=== PATIENT | female | born 1955 | race Caucasian/White ===

== ENCOUNTER 2016-03-01 11:12 | Inpatient (IN) | payer OTHER ==
[~2016-03-01] VITALS: Ht 162.6 cm; Wt 97.5 kg
--- NOTE | 2016-03-01 11:13 | NUR ---
INFORMED WAITING PERFORMED.
--- NOTE | 2016-03-01 11:24 | NUR ---
PT C/O MS EXACERBATION. STATES SHE WAS UNABLE TO VOID LAST WEEK AND THE RN CAME OUT AND PLACED A CÁRDENAS AND GOT 900 CC OUT. PT STATES URINE NOT DRAINING NOW. STATES LEFT LEG WENT COMPLETELY NUMB LAST NIGHT X 3. PT STATES SHE HAS LUMPS THAT HAVE POPPED OUT ON HER ANKLES SINCE LAST WEEK
--- NOTE | 2016-03-01 11:37 | ED GENERAL ADULT ---
History of Present Illness General Chief Complaint: General Adult Stated Complaint: ?MS EXACERBATION, PAIN FROM WAIST DOWN, HX DVT Source: patient Exam Limitations: no limitations Vital Signs & Intake/Output Vital Signs & Intake/Output Vital Signs Date Time Temp Pulse Resp B/P Pulse O2 O2 Flow FiO2 Ox Delivery Rate 03/02 0850 97.6 74 20 128/86 94 Nasal 1.0L Cannula 03/02 0043 98.1 90 20 150/90 94 Nasal 2.0L Cannula 03/02 0000 94 Nasal 2.0L Cannula 03/01 2132 97.6 78 18 116/64 96 Nasal 2.0L Cannula 03/01 1857 97.1 70 20 114/59 03/01 1733 Nasal 2.0L Cannula 03/01 1733 96 Nasal 2.0L Cannula 03/01 1733 96.6 68 17 114/59 96 Nasal 2.0L Cannula 03/01 1733 95 Nasal 2.0L Cannula 03/01 1538 96.5 72 17 127/62 96 Nasal 2.0L Cannula 03/01 1250 95 Nasal 2.0L Cannula 03/01 1121 98.1 88 20 120/79 95 Room Air ED Intake and Output 03/02 0000 03/01 1200 Intake Total 270 Output Total 950 Balance -680 Intake, IV 30 Intake, Oral 240 Output, Urine 950 Patient 215 lb 215 lb Weight Allergies Coded Allergies: metoclopramide (From REGLAN) (Severe, 03/01/16) Sulfa (Sulfonamide Antibiotics) (SWELLING 03/01/16) Uncoded Allergies: FRESH FROZEN PLASMA (Mild, HIVES 03/01/16) Reconcile Medications Albuterol Sulfate 2.5 MG/3 ML (0.083 %) VIAL.NEB 1 Vial INH/ARLETTE Q6-PRN PRN WHEEZING (Reported) Atorvastatin Calcium 40 MG TABLET 1 TAB PO DAILY CHOLESTEROL (Reported) Baclofen 10 MG TABLET 1 TAB PO BID MUSCLE (Reported) Diazepam 5 MG TABLET 1 TAB PO TIDPRN PRN ANXIETY (Reported) Duloxetine HCl 40 MG CAPSULE.DR 1 CAP PO DAILY MENTAL HEALTH (Reported) Ergocalciferol (Vitamin D2) (Vitamin D2) 50,000 UNIT CAPSULE 1 CAP PO QMON SUPPLEMENT (Reported) Fluticasone/Salmeterol (Advair 250-50 Diskus) 250 MCG-50 MCG/DOSE BLST.W.DEV 1 PUF INH BID BREATHING PROBLEMS (Reported) Gabapentin 100 MG CAPSULE 1 CAP PO TID PAIN (Reported) Hydromorphone HCl 4 MG TABLET 1 TAB PO Q4 HRS NEEDED PRN PAIN (Reported) Meclizine HCl 25 MG TABLET 1 TAB PO Q8P PRN DIZZINESS (Reported) Metoprolol Succinate 50 MG TAB.ER.24H 1 TAB PO DAILY HEART (Reported) Ondansetron (Zofran Odt) 4 MG TAB.RAPDIS 1 TAB PO Q6-PRN PRN NAUSEA/VOMITING (Reported) Pramipexole Di-HCl (Pramipexole Dihydrochloride) 1 MG TABLET 1 TAB PO DAILY RESTLESS LEGS (Reported) Tiotropium [place] (Spiriva) 18 MCG CAP.W.DEV 1 CAP INH DAILY BREATHING PROBLEMS (Reported) Travoprost (Travatan Z) 0.004 % DROPS 1 GTT OPH QPM EYE (Reported) Warfarin Sodium (Coumadin) 3 MG TABLET 1 TAB PO 1700 BLOOD THINNER (Reported) Triage Note: PT C/O MS EXACERBATION. STATES SHE WAS UNABLE TO VOID LAST WEEK AND THE RN CAME OUT AND PLACED A CÁRDENAS AND GOT 900 CC OUT. PT STATES URINE NOT DRAINING NOW. STATES LEFT LEG WENT COMPLETELY NUMB LAST NIGHT X 3. PT STATES SHE HAS LUMPS THAT HAVE POPPED OUT ON HER ANKLES SINCE LAST WEEK Triage Nurses Notes Reviewed? yes Onset: Gradual Duration: week(s): (2) Timing: recent history Injury Environment: home Severity: moderate Modifying Factors: Improves With: other (lying flat or on sides). Associated Symptoms: MUSCLE PAIN, TINGLING, NUMBNESS HPI: This is a 60-year-old female with history of MS, lupus, lupus anticoagulant, hypothyroidism who presents from home for chief complaint of multiple different symptoms including weakness of the legs, numbness of the legs. She was seen at [facility] 2 weeks ago and diagnosed with hypoxia and tachycardia. At that time the decision MRI of her brain which showed significant change in her white plaques. She was transferred from there to [facility]. At [facility] she saw a neurologist and had a repeat MRI and was sent home. In that past 2 weeks she has had worsening pains and aches all over her body. Last week she was unable to urinate and was straight cath from home. She had 900 mL of output and since then has had an indwelling Cárdenas catheter that was ordered by her doctor. She states she lives in either a left recumbent or right recumbent position that urine to flow out. Positive chills but denies any fevers. Denies any chest pain. She does complain of lower back pain. She was diagnosed 2 years ago with a large rectocele and cystocele and was at that time living in a different state. She could not get surgical correction at that time secondary to insurance and risk factors given her underlying medical conditions. In addition to this patient has been on Coumadin for history of clots. Last week she had an elevated INR was off Coumadin for several days. She restarted it on Sunday as her INR went down to 1.1. She denies any bruising or bleeding. Her down to the ER for evaluation. Past History Travel History Traveled to [place] past 21 day No Medical History Any Pertinent Medical History? see below for history Neurological: multiple sclerosis Cardiovascular: CAD, hypertension, DVT Respiratory: asthma, COPD Endocrine: diabetes, LUPUS Surgical History Surgical History: non-contributory Psychosocial History What is your primary language Kazakh Tobacco Use: Current Daily Use Daily Tobacco Use Amount/Type: => 5 Cigarettes daily ETOH Use: denies use Illicit Drug Use: denies illicit drug use Family History Hx Contributory? No Review of Systems Review of Systems Constitutional: Reports: malaise, weakness. Denies: chills, fever. EENTM: Reports: no symptoms. Respiratory: Denies: cough, short of breath, sputum production. Cardiovascular: Denies: chest pain, palpitations. GI: Denies: abdominal pain. Genitourinary: Reports: see HPI (URINARY RETENTION). Musculoskeletal: Reports: muscle pain. Denies: muscle stiffness. Skin: Reports: no symptoms. Neurological/Psychological: Reports: numbness, tingling, weakness. Hematologic/Endocrine: Denies: bruising, bleeding. Immunologic/Allergic: Denies: splenectomy. All Other Systems: Reviewed and Negative Physical Exam Physical Exam General Appearance: well developed/nourished, alert, awake, mild distress, obese Head: atraumatic, normal appearance Eyes: Bilateral: normal appearance, PERRL, EOMI. Ears, Nose, Throat: normal pharynx, normal ENT inspection, hearing grossly normal Neck: normal inspection, supple, full range of motion Respiratory: normal breath sounds, chest non-tender, no respiratory distress Cardiovascular: regular rate/rhythm Peripheral Pulses: 2+ radial (R), 2+ radial (L) Gastrointestinal: normal bowel sounds, soft, no organomegaly Extremities: normal inspection, normal capillary refill, normal range of motion, no edema Neurologic/Psych: no motor/sensory deficits, awake, alert, oriented x 3 Skin: intact, normal color, warm/dry Core Measures ACS in differential dx? No CVA/TIA Diagnosis: No Severe Sepsis Present: No Septic Shock Present: No Progress Differential Diagnoses I considered the following diagnoses in my evaluation of the patient: [URINARY RETENTION, UROSEPSIS, MS EXACERBATION, RECTOCELE, CYSTOCELE] Plan of Care: Orders Procedure Date/time Status Consistent Carbohydrate 3 03/02 B Active Cárdenas, Insertion/Removal/Asses 03/02 0824 Active Pain Treatment and Response 03/02 0658 Active PROTHROMBIN TIME 03/02 0600 Complete CBC WITHOUT DIFFERENTIAL 03/02 0600 Complete BASIC ELECTROLYTES PLUS BUN&CR 03/02 0600 Complete TRC EVALUATION (GEN) 03/02 UNK Active PHARMACY COMMUNICATION FORM 03/02 UNK Active Heart Healthy Diet 03/01 D Complete Pathway - chart 03/01 2047 Active PT Evaluate & Treat 03/01 1847 Active Pathway - chart 03/01 1847 Active PHYSICIAN CONSULT 03/01 1847 Active Teach/Educate 03/01 1718 Active Nutritional Intake, Monitor 03/01 1718 Active Isolation 03/01 1718 Active Patient Care Conference 03/01 1718 Active Activity/Ambulation 03/01 1718 Active LACTIC ACID 03/01 1454 Complete Patient Data 03/01 1441 Active Vital Signs 03/01 1436 Active Code Status 03/01 1436 Active Admit to inpatient 03/01 1435 Active Intake & Output 03/01 1249 Active CULTURE,URINE 03/01 1154 Active BLOOD CULTURE 03/01 1154 Active URINALYSIS 03/01 1154 Complete THYROID STIMULATING HORMONE 03/01 1154 Complete PARTIAL THROMBOPLASTIN TIME 03/01 1154 Complete PROTHROMBIN TIME 03/01 1154 Complete LACTIC ACID 03/01 1154 Complete FREE T4 03/01 1154 Complete COMPREHENSIVE METABOLIC PANEL 03/01 1154 Complete CBC WITHOUT DIFFERENTIAL 03/01 1154 Complete EKG 03/01 1154 Active Occupational Tx Eval & Treat 03/01 UNK Active VTE Mechanical Prophylaxis 03/01 UNK Active FingerStick- Glucose 03/01 UNK Active Cárdenas, Insertion/Removal/Asses 03/01 UNK Complete Current Medications Sig/Blanka Start time Last Medication Dose Stop Time Status Admin Atorvastatin Calcium 40 MG DAILY@1700 03/02 1700 AC (Lipitor) Methylprednisolone 1,000 MG 1600 03/02 1600 AC (Solu Medrol) Dextrose/Water 1,000 ML (D5W 1000) Senna/Docusate Sodium 2 TAB DAILY 03/02 1000 AC (Senokot S) Acetaminophen 650 MG Q6-PRN PRN 03/02 0045 AC (Tylenol) Travoprost 1 GTT AT BEDTIME 03/01 2200 AC (Travatan Z Oph [place] 0.004% 2.5ML) Meclizine HCl 25 MG TID PRN 03/01 184 AC (Antivert) Non-Formulary 0 SEE ADMIN CRITERIA 03/01 184 CAN Medication (NON FORMULARY) Laboratory Tests 03/02/16 0618: Anion Gap 13, Estimated GFR > 60, BUN/Creatinine Ratio 21.3, PT 24.9 H, INR 2.39 H, CBC w Diff NO MAN DIFF REQ, RBC 4.74, MCV 89.8, MCH 30.1, RDW 16.4 H, MPV 8.3, Gran % 88.9 H, Lymphocytes % 10.7 L, Monocytes % 0.4 L, Eosinophils % 0, Basophils % 0 L, Absolute Granulocytes 5.2, Absolute Lymphocytes 0.6 L, Absolute Monocytes 0 L, Absolute Eosinophils 0, Absolute Basophils 0, PUBS MCHC 33.5 03/01/16 1457: Lactic Acid 1.2 03/01/16 1243: Urine Color YEL, Urine Clarity CLEAR, Urine pH 6.0, Ur Specific [place] <= 1.005 , Urine Protein NEG, Urine Ketones NEG, Urine Nitrite NEG, Urine Bilirubin NEG, Urine Urobilinogen 0.2, Ur Leukocyte Esterase NEG, Ur Microscopic EXAM NOT REQUIRED, Urine Hemoglobin NEG, Urine Glucose NEG 03/01/16 1215: Anion Gap 15, Estimated GFR > 60, BUN/Creatinine Ratio 17.1, Glucose 111 H, Lactic Acid 2.1, Calcium 9.2, Total Bilirubin 0.6, AST 21, ALT 26, Alkaline Phosphatase 71, Total Protein 7.2, Albumin 4.1, Globulin 3.1, Albumin/Globulin Ratio 1.3, TSH 0.879, Free T4 0.98, PT 18.7 H, INR 1.79 H, APTT 41 H, CBC w Diff NO MAN DIFF REQ, RBC 4.93, MCV 88.9, MCH 29.8, RDW 16.1 H, MPV 7.7, Gran % 65.5, Lymphocytes % 25.1, Monocytes % 7.4, Eosinophils % 1.5, Basophils % 0.5, Absolute Granulocytes 4.4, Absolute Lymphocytes 1.7, Absolute Monocytes 0.5, Absolute Eosinophils 0.1, Absolute Basophils 0, PUBS MCHC 33.5 Microbiology 03/01 1243 URINE ROUT: Urine Culture - RES 03/01 1235 BLOOD: Blood Culture - RECD 03/01 1215 BLOOD: Blood Culture - RECD labs, ct scan ordered. iv fluids, iv dilaudid ordered. lab results wnl except mildly elevated lactic acid. ct scan shows no acute obstruction. discussed results with Dr. Mohr who recommends inpatient admission for 3 days of high dose steroids. solumedrol 1 gm, PO dilaudid ordered. (URI MIDDLETON,TISH) Diagnostic Imaging: Viewed by Me: CT Scan. Discussed w/RAD: CT Scan. Radiology Impression: EXAM TYPE: CAT - CT ABD & PELVIS W IV CONTRAST EXAMINATION : CT ABDOMEN AND PELVIS WITH CONTRAST CLINICAL INFORMATION: Unable to urinate. Cárdenas placed. No urine output from Cárdenas. COMPARISON: CTA of the abdomen from [facility] June 2013. TECHNIQUE: Multidetector volumetric imaging was performed of the abdomen and pelvis before and after the IV administration of 95 mL of Optiray 320 intravenous contrast. Sagittal and coronal reformatted images were obtained on the technologist's workstation. DLP: 942 mGy-cm FINDINGS: LUNG BASES: The visualized lung bases are unremarkable. LIVER, GALLBLADDER, AND BILIARY TREE: The liver is normal in size, shape, and attenuation. No liver lesion is seen. The gallbladder has been removed. There is mild intrahepatic and extrahepatic biliary duct dilatation. The common bile duct measures 1.4 cm. This may be normal postcholecystectomy. Correlation with liver function tests recommended. PANCREAS: Unremarkable. SPLEEN: Unremarkable. ADRENAL GLANDS: Unremarkable. KIDNEYS AND URETERS: The kidneys are normal in size, shape, and attenuation. No hydronephrosis, hydroureter, or calculi seen. No perinephric stranding. BLADDER: There is a Cárdenas catheter in the bladder. This appears in satisfactory position. The bladder is not full. GASTROINTESTINAL TRACT: There is evidence of mild diverticulosis. The small and large bowel are otherwise unremarkable. The appendix is unremarkable. ABDOMINAL WALL: No significant hernia is appreciated. LYMPH NODES: Normal. VASCULAR: There are stents seen in the lower abdominal aorta and bilateral proximal common iliac arteries. The abdominal aorta is normal in caliber. No aneurysm is seen. PELVIC VISCERA: Unremarkable. OSSEOUS STRUCTURES: Unremarkable. IMPRESSION: Cárdenas catheter in the bladder. The Cárdenas catheter appears in satisfactory position. The bladder is empty. Mild diverticulosis. No evidence of diverticulitis. Mild intrahepatic and extrahepatic biliary duct dilatation postcholecystectomy. This may be normal postcholecystectomy. Correlation with liver function tests recommended. Initial ED EKG: NSR Departure Departure Time of Disposition: 1435 Disposition: STILL A PATIENT Condition: Stable Clinical Impression Primary Impression: Multiple sclerosis exacerbation Secondary Impressions: Urinary retention Referrals: TERESA MIDDLETON,EDI Johnson (PCP/Family) Departure Forms: Customer Survey General Discharge Information Admission Note Spoke With: JUAN CARLOS MATHIS MD Documentation of Exam: Documentation of any treatments & extenuating circumstances including Concerns Regarding Discharge (functional status, medication knowledge or non-compliance, living conditions, etc.) that warrant an admission rather than observation: [IV STEROIDS X 3 DAYS, NEURO CONSULTATION DR MOHR, PAIN MANAGEMENT, ] Critical Care Note Critical Care Note Critical Care Time: non-applicable
--- NOTE | 2016-03-01 11:51 | NUR ---
PT TO ROOM 9 URI AT BEDSIDE TO JES
[2016-03-01 12:29] LABS: ABSOLUTE BASOPHIL COUNT 0 /CUMM (0.0-0.2); ABSOLUTE EOSINOPHIL COUNT 0.1 /CUMM (0.0-0.7); ABSOLUTE GRANULOCYTE CT 4.4 /CUMM (1.4-6.5); ABSOLUTE LYMPH COUNT 1.7 /CUMM (1.2-3.4); ABSOLUTE MONOCYTE COUNT 0.5 /CUMM (0.10-0.60); BASOPHIL % 0.5 % (0.0-2.0); EOSINOPHIL % 1.5 % (0-5); GRANULOCYTE % 65.5 % (42.2-75.2); HEMATOCRIT 43.9 % (37-47); MEAN CORPUSCULAR HGB 29.8 PG (27.0-31.0); MEAN CORPUSCULAR HGB CONC 33.5 G/DL (33.0-37.0); MEAN CORPUSCULAR VOLUME 88.9 FL (81.0-99.0); MEAN PLATELET VOLUME 7.7 FL (7.4-10.4); PLATELET COUNT 183 /CUMM (130-400); RBC DISTRIBUTION WIDTH 16.1 % (11.5-14.5); RED BLOOD CELL CT 4.93 /CUMM (4.20-5.40); WHITE BLOOD CELL COUNT 6.7 /CUMM (4.8-10.8)
[2016-03-01] MEDS ORDERED: COUMADIN3 M1 PO (12:34)
[2016-03-01] MEDS ORDERED: HYDROMORPHONE HC4 M1 PO (12:35)
[2016-03-01] MEDS ORDERED: PRAMIPEXOLE DIHY1 MG PO (12:35)
[2016-03-01] MEDS ORDERED: METOPROLOL SUCC50 M2 PO (12:36)
[2016-03-01] MEDS ORDERED: ADVAIR 250-501 EACH INH (12:36)
[2016-03-01 12:37] LABS: PT 18.7 SEC (9.4-12.5); PTT 41 SEC (25-37)
[2016-03-01] MEDS ORDERED: SPIRIVA18 MCG INH (12:37)
[2016-03-01] MEDS ORDERED: DIAZEPAM5 M1 PO (12:37)
[2016-03-01] MEDS ORDERED: MECLIZINE HCL25 MG PO (12:38)
[2016-03-01] MEDS ORDERED: DULOXETINE HCL40 MG PO (12:38)
[2016-03-01] MEDS ORDERED: ATORVASTATIN CA40 M1 PO (12:39)
[2016-03-01] MEDS ORDERED: ZOFRAN ODT4 M1 PO (12:39)
[2016-03-01] MEDS ORDERED: ALBUTEROL2.5 MG/3 M INH/SOL (12:40)
[2016-03-01] MEDS ORDERED: BACLOFEN10 M1 PO (12:41)
[2016-03-01] MEDS ORDERED: GABAPENTIN300 M2 PO (12:42)
[2016-03-01] MEDS ORDERED: VITAMIN D250000 UNIT PO (12:42)
[2016-03-01] MEDS ORDERED: TRAVATAN Z5 ML OPH (12:43)
--- NOTE | 2016-03-01 12:47 | NUR ---
CRITICAL TEST RESULTS [id number] NISHANT KING 60 F TESTS AND RESULTS: LACTIC 2.1 Results received and read back by: ROSALIA WELLS Results received date and time: 03/01/16 1247 The following provider was notified of the results, and read the results back: DR. GREWAL Notified date and time: 03/01/16 at 1240
--- NOTE | 2016-03-01 13:41 | NUR ---
URI AT BEDSIDE TO LÓPEZ POC
--- NOTE | 2016-03-01 14:05 | CT SCAN REPORT ---
EXAMINATION: CT ABDOMEN AND PELVIS WITH CONTRAST CLINICAL INFORMATION: Unable to urinate. Spears placed. No urine output from Spears. COMPARISON: CTA of the abdomen from [facility] June 2013. TECHNIQUE: Multidetector volumetric imaging was performed of the abdomen and pelvis before and after the IV administration of 95 mL of Optiray 320 intravenous contrast. Sagittal and coronal reformatted images were obtained on the technologist's workstation. DLP: 942 mGy-cm FINDINGS: LUNG BASES: The visualized lung bases are unremarkable. LIVER, GALLBLADDER, AND BILIARY TREE: The liver is normal in size, shape, and attenuation. No liver lesion is seen. The gallbladder has been removed. There is mild intrahepatic and extrahepatic biliary duct dilatation. The common bile duct measures 1.4 cm. This may be normal postcholecystectomy. Correlation with liver function tests recommended. PANCREAS: Unremarkable. SPLEEN: Unremarkable. ADRENAL GLANDS: Unremarkable. KIDNEYS AND URETERS: The kidneys are normal in size, shape, and attenuation. No hydronephrosis, hydroureter, or calculi seen. No perinephric stranding. BLADDER: There is a Spears catheter in the bladder. This appears in satisfactory position. The bladder is not full. GASTROINTESTINAL TRACT: There is evidence of mild diverticulosis. The small and large bowel are otherwise unremarkable. The appendix is unremarkable. ABDOMINAL WALL: No significant hernia is appreciated. LYMPH NODES: Normal. VASCULAR: There are stents seen in the lower abdominal aorta and bilateral proximal common iliac arteries. The abdominal aorta is normal in caliber. No aneurysm is seen. PELVIC VISCERA: Unremarkable. OSSEOUS STRUCTURES: Unremarkable. IMPRESSION: Spears catheter in the bladder. The Spears catheter appears in satisfactory position. The bladder is empty. Mild diverticulosis. No evidence of diverticulitis. Mild intrahepatic and extrahepatic biliary duct dilatation postcholecystectomy. This may be normal postcholecystectomy. Correlation with liver function tests recommended.
--- NOTE | 2016-03-01 14:21 | NUR ---
PT REPOSITIONED BECAUSE SHE IS NUMB TO LEFT LEG AND TINGLING TO TOES. HX OF LAST NIGHT
--- NOTE | 2016-03-01 14:43 | NUR ---
MD GREWAL AT BEDSIDE TO DISCUSS POC
--- NOTE | 2016-03-01 14:59 | NUR ---
CALLED LAB ABOUT QUANTITY AND WILL CALL ME BACK IF NOT ENOUGH
--- NOTE | 2016-03-01 15:37 | NUR ---
PT HAS IV SOLU MEDROL INFUSING ORDERED STS SHE WILL LIKE TO EAT AND DRINK AND GET SOMETHING FOR PAIN
--- NOTE | 2016-03-01 15:47 | NUR ---
PT MEDICATED ORDERED
--- NOTE | 2016-03-01 16:10 | NUR ---
PT EVAULUATED BY ADMITTING DOCTOR
--- NOTE | 2016-03-01 16:36 | History & Physical ---
ALLYSON MIDDLETON,ANABELA 03/01/16 1630: General Information and HPI MD Statement: I have seen and personally examined NISHANT KING and documented this H&P. The patient is a 60 year old F who presented with a patient stated chief complaint of [Urinary Retention, LE pain and numbness]. Source of Information: patient Exam Limitations: no limitations History of Present Illness: 60 yo F with PMH of Lupus, MS, Bechet's dx, antiphospholid syndrome, PE on coumadin. Here with complaint of urinary retention for about 1 week. At baseline she is incontinence but noted last week that she could not urinate on her own while standing or sitting but could only urinate while laying down in bed. Her visiting nurse straight cathed her and got about 900cc of urine and eventually had a pathak placed per her PCP which she currently has in place. She complains of pain and pressure in her lower abdomen, as well as numbness of her left LE with pins and needles sensation in her toes. She was diagnosed 2 years ago with a large rectocele and cystocele but could not get surgical correction due to her comorbidities as she was considered high risk. She denies any fevers or shortness of breath but says she does not run a fever due to her auto immune conditions. She denies dysuria but has had blood clots in her urine in the past few days. She uses a wheelchair or rolling walker for ambulation. At baseline she has weakness in all extremities but it is worse in her lower extremities. She also noted lumps on her ankle that appered suddenly last week and are getting slightly increased in size. The lumps are non tender and not warm to touch. No prior hx of similar bumps in the past. Has a history of diabetes controlled with diet but she requires sc insulin whnerver she is placed on steroids. Recently discharged from hospital and MRI noted significant changes in the plaques in her brain. She follow up with Dr. Olivarez for her MS. Allergies/Medications Allergies: Coded Allergies: metoclopramide (From REGLAN) (Severe, 03/01/16) Sulfa (Sulfonamide Antibiotics) (SWELLING 03/01/16) Uncoded Allergies: FRESH FROZEN PLASMA (Mild, HIVES 03/01/16) Home Med list Albuterol Sulfate 2.5 MG/3 ML (0.083 %) VIAL.NEB 1 Vial INH/ARLETTE Q6-PRN PRN WHEEZING (Reported) Atorvastatin Calcium 40 MG TABLET 1 TAB PO DAILY CHOLESTEROL (Reported) Baclofen 10 MG TABLET 1 TAB PO BID MUSCLE (Reported) Diazepam 5 MG TABLET 1 TAB PO TIDPRN PRN ANXIETY (Reported) Duloxetine HCl 40 MG CAPSULE.DR 1 CAP PO DAILY MENTAL HEALTH (Reported) Ergocalciferol (Vitamin D2) (Vitamin D2) 50,000 UNIT CAPSULE 1 CAP PO QMON SUPPLEMENT (Reported) Fluticasone/Salmeterol (Advair 250-50 Diskus) 250 MCG-50 MCG/DOSE BLST.W.DEV 1 PUF INH BID BREATHING PROBLEMS (Reported) Gabapentin 100 MG CAPSULE 1 CAP PO TID PAIN (Reported) Hydromorphone HCl 4 MG TABLET 1 TAB PO Q4 HRS NEEDED PRN PAIN (Reported) Meclizine HCl 25 MG TABLET 1 TAB PO Q8P PRN DIZZINESS (Reported) Metoprolol Succinate 50 MG TAB.ER.24H 1 TAB PO DAILY HEART (Reported) Ondansetron (Zofran Odt) 4 MG TAB.RAPDIS 1 TAB PO Q6-PRN PRN NAUSEA/VOMITING (Reported) Pramipexole Di-HCl (Pramipexole Dihydrochloride) 1 MG TABLET 1 TAB PO DAILY RESTLESS LEGS (Reported) Tiotropium [place] (Spiriva) 18 MCG CAP.W.DEV 1 CAP INH DAILY BREATHING PROBLEMS (Reported) Travoprost (Travatan Z) 0.004 % DROPS 1 GTT OPH QPM EYE (Reported) Warfarin Sodium (Coumadin) 3 MG TABLET 1 TAB PO 1700 BLOOD THINNER (Reported) Compliance With Home Meds: GOOD Past History Travel History Traveled to [place] past 21 day No Medical History Neurological: multiple sclerosis Cardiovascular: CAD, hypertension, DVT Respiratory: asthma, COPD Endocrine: diabetes, LUPUS Surgical History Surgical History: cholecystectomy, aorta stents Past Family/Social History Family History Relations & Conditions if any SISTER Relation not specified for: FH: multiple sclerosis Psychosocial History Where do you live? Home Who Do You Live With? spouse, child Services at Home: Nursing Smoking Status: Current Everyday Smoker (/ ppd) ETOH Use: denies use Illicit Drug Use: denies illicit drug use Functional Ability ADLs Needs Assist: dressing, eating, toileting, bathing. Ambulation: walker IADLs Independent: telephone. Needs Assist: shopping, housework, finances, food prep, transportation, medication admin. Review of Systems Review of Systems Constitutional: Reports: see HPI. Exam & Diagnostic Data Last 24 Hrs of Vital Signs/I&O Vital Signs Date Time Temp Pulse Resp B/P Pulse O2 O2 Flow FiO2 Ox Delivery Rate 03/01 1733 96 Nasal 2.0L Cannula 03/01 1733 96.6 68 17 114/59 96 Nasal 2.0L Cannula 03/01 1733 95 Nasal 2.0L Cannula 03/01 1538 96.5 72 17 127/62 96 Nasal 2.0L Cannula 03/01 1250 95 Nasal 2.0L Cannula 03/01 1121 98.1 88 20 120/79 95 Room Air Intake & Output 03/01 1600 03/01 0800 03/01 0000 Intake Total 30 Output Total 250 Balance -220 Intake, IV 30 Output, Urine 250 Patient 215 lb Weight Physical Exam General Appearance Alert, Oriented X3, Cooperative, No Acute Distress HEENT Atraumatic, PERRLA, EOMI, Mucous Membr. moist/pink Neck Supple, No JVD Cardiovascular Regular Rate, Normal S1, Normal S2 Lungs Clear to Auscultation, Normal Air Movement Abdomen tender suprapubic area Neurological strength 1/5 bilaterally, decreased sensation Extremities 1+ pedal edema bilaterally, skin lumps around the ankles 2x2 cm, soft, non tender, non mobile, not warm to touch Vascular Pulses Symmetrical Last 24 Hrs of Labs/Abraham: Laboratory Tests 03/01/16 1457: Lactic Acid 1.2 03/01/16 1243: Urine Color YEL, Urine Clarity CLEAR, Urine pH 6.0, Ur Specific [place] <= 1.005 , Urine Protein NEG, Urine Ketones NEG, Urine Nitrite NEG, Urine Bilirubin NEG, Urine Urobilinogen 0.2, Ur Leukocyte Esterase NEG, Ur Microscopic EXAM NOT REQUIRED, Urine Hemoglobin NEG, Urine Glucose NEG 03/01/16 1215: Anion Gap 15, Estimated GFR > 60, BUN/Creatinine Ratio 17.1, Glucose 111 H, Lactic Acid 2.1, Calcium 9.2, Total Bilirubin 0.6, AST 21, ALT 26, Alkaline Phosphatase 71, Total Protein 7.2, Albumin 4.1, Globulin 3.1, Albumin/Globulin Ratio 1.3, TSH 0.879, Free T4 0.98, PT 18.7 H, INR 1.79 H, APTT 41 H, CBC w Diff NO MAN DIFF REQ, RBC 4.93, MCV 88.9, MCH 29.8, RDW 16.1 H, MPV 7.7, Gran % 65.5, Lymphocytes % 25.1, Monocytes % 7.4, Eosinophils % 1.5, Basophils % 0.5, Absolute Granulocytes 4.4, Absolute Lymphocytes 1.7, Absolute Monocytes 0.5, Absolute Eosinophils 0.1, Absolute Basophils 0, PUBS MCHC 33.5 Microbiology 03/01 1243 URINE ROUT: Urine Culture - RECD 03/01 1235 BLOOD: Blood Culture - RECD 03/01 1215 BLOOD: Blood Culture - RECD Diagnostic Data Other Results EXAM TYPE: CAT - CT ABD & PELVIS W IV CONTRAST EXAMINATION: CT ABDOMEN AND PELVIS WITH CONTRAST CLINICAL INFORMATION: Unable to urinate. Pathak placed. No urine output from Pathak. COMPARISON: CTA of the abdomen from [facility] June 2013. TECHNIQUE: Multidetector volumetric imaging was performed of the abdomen and pelvis before and after the IV administration of 95 mL of Optiray 320 intravenous contrast. Sagittal and coronal reformatted images were obtained on the technologist's workstation. DLP: 942 mGy-cm FINDINGS: LUNG BASES: The visualized lung bases are unremarkable. LIVER, GALLBLADDER, AND BILIARY TREE: The liver is normal in size, shape, and attenuation. No liver lesion is seen. The gallbladder has been removed. There is mild intrahepatic and extrahepatic biliary duct dilatation. The common bile duct measures 1.4 cm. This may be normal postcholecystectomy. Correlation with liver function tests recommended. PANCREAS: Unremarkable. SPLEEN: Unremarkable. ADRENAL GLANDS: Unremarkable. KIDNEYS AND URETERS: The kidneys are normal in size, shape, and attenuation. No hydronephrosis, hydroureter, or calculi seen. No perinephric stranding. BLADDER: There is a Pathak catheter in the bladder. This appears in satisfactory position. The bladder is not full. GASTROINTESTINAL TRACT: There is evidence of mild diverticulosis. The small and large bowel are otherwise unremarkable. The appendix is unremarkable. ABDOMINAL WALL: No significant hernia is appreciated. LYMPH NODES: Normal. VASCULAR: There are stents seen in the lower abdominal aorta and bilateral proximal common iliac arteries. The abdominal aorta is normal in caliber. No aneurysm is seen. PELVIC VISCERA: Unremarkable. OSSEOUS STRUCTURES: Unremarkable. IMPRESSION: Pathak catheter in the bladder. The Pathak catheter appears in satisfactory position. The bladder is empty. Mild diverticulosis. No evidence of diverticulitis. Mild intrahepatic and extrahepatic biliary duct dilatation postcholecystectomy. This may be normal postcholecystectomy. Correlation with liver function tests recommended. Assessment/Plan Assessment: 60 yo F with PMH of Lupus, MS, Bechet's dx, antiphospholid syndrome, PE on coumadin. Here with complaint of urinary retention for about 1 week. Hx of large rectocele and cystocele. Assessment 1. MS exacerbation 2. Urinary Retention 2/2 rectocele and cystocele r/o UTI Plan Admit to Neuro Consult-Dr. Olivarez IV solumedrol 1000mg moreno x 3 days Continue her home meds Urology consult Consider surgical consult for lumps on her ankle Leave pathak in place for now-monitor I/Os PT/OT Pain Mgt and stool softeners On Coumadin-check INR in am and dose coumadin as needed Alps As Ranked By This Provider Problem List: 1. Multiple sclerosis exacerbation Core Measures/Miscellaneous Acute Coronary Syndrome ACS Diagnosis: No Cerebrovascular Accident CVA/TIA Diagnosis: No Congestive Heart Failure CHF Diagnosis: Yes Venous Thromboembolism VTE Risk Factors: Acute medical illness, Age > 40 VTE Prophylaxis Ordered Inpt: Mech & Pharm No Mech VTE prophylaxis d/t: No contraindications No VTE Pharm Prophylaxis d/t: No contraindications VTE Diagnosis: No VTE Type: NONE VTE Confirmed by (Test): NONE Severe Sepsis Severe Sepsis Present: No Septic Shock Septic Shock Present: No Miscellaneous Documentation Attending Case Discussed With: Dr. Connor Primary Care Physician: EDI MOORE MD Patient sees these Specialists Neurologist Level of Patient Care: General Medicine Consults Needed: Consulting Specialty: Urology Resident Review Statement Resident Statement: examined this patient Other Findings: see DARVIN CHOE MD 03/01/16 3935: Attending Review Statement Attending Statement Attending MD Statement: examined this patient, discuss w/resident/PA/GUITAR INSTRUCTOR, agreed w/resident/PA/GUITAR INSTRUCTOR, reviewed EMR data (avail), discussed with nursing, amended to note Attending Assessment/Plan: 60-year-old female with history of chronic pain syndrome, multiple sclerosis with multiple inpatient admission to other hospitals presents here with complaints of worsening lower extremity weakness as well as increased lower extremity pain. She reports the symptoms are consistent with multiple sclerosis flare. She arrives here afebrile and hemodynamically stable. Head CT shows no acute pathology. On examination she has no focal deficits other than weakness of bilateral lower extremities. She also reports urinary retention which is new for her as she usually has urinary incontinence. She reports that she is unable to void after straight cath by her visiting nurses or when she is lying down flat. She reports a history of pelvic floor disease and is considered too high a surgical risk for intervention. Recommendations: -Admit to the inpatient general medical service. -Hydrate with intravenous fluids. -Administer intravenous steroids as recommended by her neurologist. -Physical therapy evaluation. -Provide pain management. Patient currently requesting for IV Dilaudid for pain control as opposed to her routine oral regimen. -Please obtain records of her prior hospitalization. -Recommend intermittent catheterization while she is in the hospital and elective follow-up with urology service as an outpatient. She will likely need to be discharged with training for intermittent self-catheterization. The Pathak catheter placed in the emergency room will be discontinued tomorrow.
--- NOTE | 2016-03-01 16:45 | NUR ---
PT GIVEN MEAL TRAY AND EATING
[2016-03-01 17:33] VITALS: BP 114/59
--- NOTE | 2016-03-01 18:59 | NUR ---
NESS, ADMITTING DOC AT BEDSIDE TO [facility] PT
--- NOTE | 2016-03-01 20:03 | NUR ---
PT ASSIGNED BED 203
--- NOTE | 2016-03-01 20:15 | NUR ---
PT UPSET THAT SHE IS GETTING PO MEDS AND THAT ADMITTING MD INOFMRED HER THEY WILL CHANGE TO IV. MOD PAGED
--- NOTE | 2016-03-01 20:30 | NUR ---
PT MEDICATED WITH DILAUDID 1MG PER EMAR FOR PAIN 10/05.
--- NOTE | 2016-03-01 20:31 | NUR ---
ATTEMPTED TO INFORM NURSE THAT PT IS ON OXYGEN 2L FOR COMFORT BUT NO ONE PICKED UP AFTER 5 MIN
[2016-03-01 21:32] VITALS: BP 116/64
--- NOTE | 2016-03-01 22:43 | NUR ---
NURSING NOTE: PT ARRIVED TO FLOOR WITH DISTRIBUTION FROM ER. PT AWAKE, A/OX3, ON 2 L NC, PER PT BASELINE IS 2-3L NC, [facility] [place] IN PLACE DRAINING CLEAR, YELLOW URINE AT BEDSIDE, SKIN INTACT, SWELLING NOTED TO BILAT ANKLES, ALPS IN PLACE, PT C/O NUMBNESS AND TINGLING TO BLE, IV SITE INTACT, PT DENIES PAIN AT THIS TIME, ORIENTED TO ROOM AND CALL HOLLY WITHIN REACH. WILL CONTINUE TO MONITOR.
--- NOTE | 2016-03-01 23:03 | Admission Certification ---
Admission Certification Certification Statement - As attending physician, I certify that at the time of - admission, based on clinical presentation, severity of - symptoms, need for further diagnostic testing and - therapeutic interventions, and risk of adverse outcomes - without in-hospital treatment, in my clinical assessment, - this patient requires an acute hospital stay for a minimum - of two nights or longer. I have also considered psychsocial - factors such as support system, advanced age, financial - issues, cognitive issues, and failed out-patient treatments, - past re-admission history, safety of patient, and lack of - compliance as applicable. Specific rationale supporting this admission is: Patient requires inpatient medical management for her multiple sclerosis. She requires intravenous steroid therapy.
[2016-03-02 00:43] VITALS: BP 150/90
--- NOTE | 2016-03-02 07:50 | Cons- Urology ---
General Information and HPI Consulting Request Date of Consult: 03/02/16 Requested By: medical service JUAN CARLOS MATHIS MD Reason for Consult: urinary retention, cystocele, rectocele Source of Information: patient, old records Exam Limitations: no limitations History of Present Illness: This patient has a long hx of MS. She had an episode of urosepsis and urinary retention in 08/2015. She was treated with a pathak and abx and recovered. She was then voiding spontaneously. Recently she has had increased lower extremity weakness and again urinary retention. She states that a pathak does not drain well when she is sitting but drains well when she is supine. Allergies/Medications Allergies: Coded Allergies: metoclopramide (From REGLAN) (Severe, 03/01/16) Sulfa (Sulfonamide Antibiotics) (SWELLING 03/01/16) Uncoded Allergies: FRESH FROZEN PLASMA (Mild, HIVES 03/01/16) Home Med List: Albuterol Sulfate 2.5 MG/3 ML (0.083 %) VIAL.NEB 1 Vial INH/ARLETTE Q6-PRN PRN WHEEZING (Reported) Atorvastatin Calcium 40 MG TABLET 1 TAB PO DAILY CHOLESTEROL (Reported) Baclofen 10 MG TABLET 1 TAB PO BID MUSCLE (Reported) Diazepam 5 MG TABLET 1 TAB PO TIDPRN PRN ANXIETY (Reported) Duloxetine HCl 40 MG CAPSULE.DR 1 CAP PO DAILY MENTAL HEALTH (Reported) Ergocalciferol (Vitamin D2) (Vitamin D2) 50,000 UNIT CAPSULE 1 CAP PO QMON SUPPLEMENT (Reported) Fluticasone/Salmeterol (Advair 250-50 Diskus) 250 MCG-50 MCG/DOSE BLST.W.DEV 1 PUF INH BID BREATHING PROBLEMS (Reported) Gabapentin 100 MG CAPSULE 1 CAP PO TID PAIN (Reported) Hydromorphone HCl 4 MG TABLET 1 TAB PO Q4 HRS NEEDED PRN PAIN (Reported) Meclizine HCl 25 MG TABLET 1 TAB PO Q8P PRN DIZZINESS (Reported) Metoprolol Succinate 50 MG TAB.ER.24H 1 TAB PO DAILY HEART (Reported) Ondansetron (Zofran Odt) 4 MG TAB.RAPDIS 1 TAB PO Q6-PRN PRN NAUSEA/VOMITING (Reported) Pramipexole Di-HCl (Pramipexole Dihydrochloride) 1 MG TABLET 1 TAB PO DAILY RESTLESS LEGS (Reported) Tiotropium [place] (Spiriva) 18 MCG CAP.W.DEV 1 CAP INH DAILY BREATHING PROBLEMS (Reported) Travoprost (Travatan Z) 0.004 % DROPS 1 GTT OPH QPM EYE (Reported) Warfarin Sodium (Coumadin) 3 MG TABLET 1 TAB PO 1700 BLOOD THINNER (Reported) Current Medications: Current Medications Sig/Blanka Start time Last Medication Dose Route Stop Time Status Admin Acetaminophen 650 MG Q6-PRN PRN 03/02 0045 AC PO Atorvastatin Calcium 40 MG DAILY@1700 03/02 1700 AC PO Baclofen 10 MG BID 03/01 2200 AC 03/01 PO 2235 Diazepam 5 MG TID PRN 03/01 1845 AC 03/02 PO 0427 Docusate Sodium 100 MG DAILY 03/02 1000 AC PO Duloxetine HCl 40 MG DAILY 03/02 1000 AC PO Gabapentin 100 MG TID 03/01 2200 AC 03/01 PO 2235 Hydromorphone HCl 0 .STK-MED ONE 03/01 202 DC .ROUTE Hydromorphone HCl 1 MG Q4P PRN 03/01 2014 AC 03/02 IV 0430 Hydromorphone HCl 0 .STK-MED ONE 03/01 2009 DC PO Hydromorphone HCl 4 MG Q4P PRN 03/01 1845 AC 03/01 PO 2235 Hydromorphone HCl 4 MG Q4P PRN 03/01 1545 DC 03/01 PO 1547 Hydromorphone HCl 0 .STK-MED ONE 03/01 1543 DC PO Hydromorphone HCl 1 MG ONCE ONE 03/01 1245 DC 03/01 IV 03/01 1246 1248 Hydromorphone HCl 0 .STK-MED ONE 03/01 1237 DC .ROUTE Insulin Aspart 0 TIDAC 03/02 0800 AC SC Meclizine HCl 25 MG TID PRN 03/01 1845 AC PO Methylprednisolone 1,000 MG 1600 03/02 1600 AC Dextrose/Water 1,000 ML IV Methylprednisolone 1,000 MG DAILY 03/02 1000 DC Dextrose/Water 1,000 ML IV Methylprednisolone 1,000 MG ONCE ONE 03/01 1445 DC 03/01 Dextrose/Water 1,000 ML IV 03/01 1644 1538 Non-Formulary 0 SEE ADMIN CRITERIA 03/01 1845 CAN Medication ANY Pramipexole 1 MG DAILY 03/02 1000 DC Dihydrochloride PO Pramipexole 1 MG AT BEDTIME 03/01 2199 AC 03/01 Dihydrochloride PO 2235 Senna/Docusate Sodium 2 TAB DAILY 03/02 1000 AC PO Sodium Chloride 1,000 ML Q13H 03/02 0045 AC 03/02 IV 03/02 1344 0135 Tiotropium [place] 1 PUF DAILY 03/02 1000 AC INH Travoprost 1 GTT AT BEDTIME 03/01 2199 AC OPH Past History Medical History Blood Transfusion Hx: No Neurological: multiple sclerosis Cardiovascular: CAD, hypertension, DVT Respiratory: asthma, COPD Endocrine: diabetes, LUPUS Surgical History Pertinent Surgical History: cholecystectomy, aorta stents Family History Relations & Conditions If Any: SISTER Relation not specified for: FH: multiple sclerosis Psychosocial History Where Do You Live? Home Who Do You Live With? spouse, child Services at Home: Nursing Smoking Status: Current Everyday Smoker (02/27 ppd) ETOH Use: denies use Illicit Drug Use: denies illicit drug use Functional Ability ADLs Needs Assist: dressing, eating, toileting, bathing. Ambulation: walker IADLs Independent: telephone. Needs Assist: shopping, housework, finances, food prep, transportation, medication admin. Exam & Diagnostic Data Vital Signs and I&O Vital Signs Date Time Temp Pulse Resp B/P Pulse O2 O2 Flow FiO2 Ox Delivery Rate 03/02 0043 98.1 90 20 150/90 94 Nasal 2.0L Cannula 03/02 0000 94 Nasal 2.0L Cannula 03/01 2132 97.6 78 18 116/64 96 Nasal 2.0L Cannula 03/01 1857 97.1 70 20 114/59 03/01 1733 Nasal 2.0L Cannula 03/01 1733 96 Nasal 2.0L Cannula 03/01 1733 96.6 68 17 114/59 96 Nasal 2.0L Cannula 03/01 1733 95 Nasal 2.0L Cannula 03/01 1538 96.5 72 17 127/62 96 Nasal 2.0L Cannula 03/01 1250 95 Nasal 2.0L Cannula 03/01 1121 98.1 88 20 120/79 95 Room Air Intake & Output 03/02 0800 03/02 0000 03/01 1600 03/01 0800 03/01 0000 02/28 1600 Intake Total 240 30 Output Total 500 700 250 Balance -500 -460 -220 Intake, IV 30 Intake, Oral 240 Output, Urine 500 700 250 Patient 215 lb 215 lb Weight Alert and oriented. No acute distress Back: no CVA tenderness Abd: laparoscopy scars well healed. No significant tenderness Laboratory Tests 03/02 03/01 03/01 0618 1457 1243 Chemistry Sodium Pending Potassium Pending Chloride Pending Carbon Dioxide Pending Anion Gap Pending BUN Pending Creatinine Pending BUN/Creatinine Ratio Pending Lactic Acid (0.7 - 2.1 mmol/L) 1.2 Coagulation PT Pending INR Pending Hematology CBC w Diff Pending WBC Pending RBC Pending Hgb Pending Hct Pending MCV Pending MCH Pending RDW Pending Plt Count Pending MPV Pending PUBS MCHC Pending Urines Urine Color (YEL,AMB,STR) YEL Urine Clarity (CLEAR) CLEAR Urine pH (5.0 - 8.0) 6.0 Ur Specific [place] (1.001 - 1.035) <= 1.005 Urine Protein (NEG,<30 MG/DL) NEG Urine Ketones (NEG) NEG Urine Nitrite (NEG) NEG Urine Bilirubin (NEG) NEG Urine Urobilinogen (0.1 - 1.0 EU/dl) 0.2 Ur Leukocyte Esterase (NEG) NEG Ur Microscopic EXAM NOT REQUIRED Urine Hemoglobin (NEG) NEG Urine Glucose (N MG/DL) NEG 03/01 1215 Chemistry Sodium (137 - 145 mmol/L) 140 Potassium (3.5 - 5.1 mmol/L) 4.1 Chloride (98 - 107 mmol/L) 101 Carbon Dioxide (22 - 30 mmol/L) 24 Anion Gap (5 - 16) 15 BUN (7 - 17 mg/dL) 12 Creatinine (0.5 - 1.0 mg/dL) 0.7 Estimated GFR (>60 ml/min) > 60 BUN/Creatinine Ratio (7 - 25 %) 17.1 Glucose (65 - 99 mg/dL) 111 H Lactic Acid (0.7 - 2.1 mmol/L) 2.1 Calcium (8.4 - 10.2 mg/dL) 9.2 Total Bilirubin (0.2 - 1.3 mg/dL) 0.6 AST (14 - 36 U/L) 21 ALT (9 - 52 U/L) 26 Alkaline Phosphatase (<127 U/L) 71 Total Protein (6.3 - 8.2 g/dL) 7.2 Albumin (3.5 - 5.0 g/dL) 4.1 Globulin (1.9 - 4.2 gm/dL) 3.1 Albumin/Globulin Ratio (1.1 - 2.2 %) 1.3 TSH (0.270 - 4.200 uIU/mL) 0.879 Free T4 (0.64 - 1.79 ng/dL) 0.98 Coagulation PT (9.4 - 12.5 SEC) 18.7 H INR (0.90 - 1.19) 1.79 H APTT (25 - 37 SEC) 41 H Hematology CBC w Diff NO MAN DIFF REQ WBC (4.8 - 10.8 /CUMM) 6.7 RBC (4.20 - 5.40 /CUMM) 4.93 Hgb (12.0 - 16.0 G/DL) 14.7 Hct (37 - 47 %) 43.9 MCV (81.0 - 99.0 FL) 88.9 MCH (27.0 - 31.0 PG) 29.8 RDW (11.5 - 14.5 %) 16.1 H Plt Count (130 - 400 /CUMM) 183 MPV (7.4 - 10.4 FL) 7.7 Gran % (42.2 - 75.2 %) 65.5 Lymphocytes % (20.5 - 51.1 %) 25.1 Monocytes % (1.7 - 9.3 %) 7.4 Eosinophils % (0 - 5 %) 1.5 Basophils % (0.0 - 2.0 %) 0.5 Absolute Granulocytes (1.4 - 6.5 /CUMM) 4.4 Absolute Lymphocytes (1.2 - 3.4 /CUMM) 1.7 Absolute Monocytes (0.10 - 0.60 /CUMM) 0.5 Absolute Eosinophils (0.0 - 0.7 /CUMM) 0.1 Absolute Basophils (0.0 - 0.2 /CUMM) 0 PUBS MCHC (33.0 - 37.0 G/DL) 33.5 Assessment/Plan Assessment/Plan Imp: urinary retention could be due to neurogenic bladder from MS or cystocele or both. Suspect MS is a major contributor Plan: 1. Although intermittent cath on a prn basis would be optimal management I don't think she will be able to do it at home and it doesn't appear that family would be able to do it. 2. Would leave pathak for now 3. f/u in our office with Dr Estefania Burk. She could be evaluated for possible pessary insertion and this may eliminate any contribution the cystocele has in urinary retention Consult Acknowledgment - Thank you for your consult request.
[2016-03-02 08:17] LABS: ABSOLUTE BASOPHIL COUNT 0 /CUMM (0.0-0.2); ABSOLUTE EOSINOPHIL COUNT 0 /CUMM (0.0-0.7); ABSOLUTE GRANULOCYTE CT 5.2 /CUMM (1.4-6.5); ABSOLUTE LYMPH COUNT 0.6 /CUMM (1.2-3.4); ABSOLUTE MONOCYTE COUNT 0 /CUMM (0.10-0.60); BASOPHIL % 0 % (0.0-2.0); EOSINOPHIL % 0 % (0-5); HEMATOCRIT 42.5 % (37-47); MEAN CORPUSCULAR HGB 30.1 PG (27.0-31.0); MEAN CORPUSCULAR HGB CONC 33.5 G/DL (33.0-37.0); MEAN CORPUSCULAR VOLUME 89.8 FL (81.0-99.0); MEAN PLATELET VOLUME 8.3 FL (7.4-10.4); PLATELET COUNT 173 /CUMM (130-400); RBC DISTRIBUTION WIDTH 16.4 % (11.5-14.5); RED BLOOD CELL CT 4.74 /CUMM (4.20-5.40); WHITE BLOOD CELL COUNT 5.8 /CUMM (4.8-10.8)
[2016-03-02 08:18] LABS: PT 24.9 SEC (9.4-12.5)
--- NOTE | 2016-03-02 08:41 | PN- Housestaff ---
[place] 03/02/16 0841: Subjective Follow-up For: Weakness Urinary retention Subjective: Patient seen and examined this morning. She is complaining of weakness in her legs and discomfort in pressure in her suprapubic region. Remains on Pathak. Vitals have been stable. Otherwise no complain Review of Systems Constitutional: Reports: see HPI. Objective Last 24 Hrs of Vital Signs/I&O Vital Signs Date Time Temp Pulse Resp B/P Pulse O2 O2 Flow FiO2 Ox Delivery Rate 03/02 1553 98.2 82 18 110/72 94 Room Air 03/02 1347 Nasal 2.5L Cannula 03/02 0850 97.6 74 20 128/86 94 Nasal 1.0L Cannula 03/02 0800 95 Nasal 2.0L Cannula 03/02 0043 98.1 90 20 150/90 94 Nasal 2.0L Cannula 03/02 0000 94 Nasal 2.0L Cannula 03/01 2132 97.6 78 18 116/64 96 Nasal 2.0L Cannula 03/01 1857 97.1 70 20 114/59 Intake & Output 03/02 1600 03/02 0800 03/02 0000 Intake Total 1500 720 240 Output Total 925 500 700 Balance 575 220 -460 Intake, IV 600 600 Intake, Oral 900 120 240 Number 0 Bowel Movements Output, Urine 925 500 700 Patient 97.522 kg Weight Physical Exam General Appearance: Alert, Oriented X3, Cooperative, No Acute Distress Cardiovascular: Regular Rate, Normal S1, Normal S2, No Murmurs Lungs: Clear to Auscultation Abdomen: Normal Bowel Sounds, Soft, tenderness in suprapubic area Extremities: edema b/l, skin lump around ankles 2x2 Current Medications: Current Medications Sig/Blanka Start time Last Medication Dose Route Stop Time Status Admin Acetaminophen 650 MG Q6-PRN PRN 03/02 0045 AC PO Albuterol Sulfate 3 ML Q4P PRN 03/02 1400 AC INH Atorvastatin Calcium 40 MG DAILY@1700 03/02 1700 AC 03/02 PO 1622 Baclofen 10 MG BID 03/01 2200 AC 03/02 PO 1007 Budesonide/ 2 PUF BID 03/02 1000 AC 03/02 Formoterol Fumarate INH 1008 Diazepam 5 MG TID PRN 03/01 1845 AC 03/02 PO 0427 Docusate Sodium 100 MG DAILY 03/02 1000 AC 03/02 PO 1007 Duloxetine HCl 40 MG DAILY 03/02 1000 AC 03/02 PO 1007 Gabapentin 100 MG TID 03/01 2200 AC 03/02 PO 1622 Hydromorphone HCl 0 .STK-MED ONE 03/01 2024 DC .ROUTE Hydromorphone HCl 1 MG Q4P PRN 03/01 2014 AC 03/02 IV 1253 Hydromorphone HCl 0 .STK-MED ONE 03/01 2009 DC PO Hydromorphone HCl 4 MG Q4P PRN 03/01 1845 AC 03/02 PO 1021 Hydromorphone HCl 4 MG Q4P PRN 03/01 1545 DC 03/01 PO 1547 Insulin Aspart 0 TIDAC 03/02 0800 AC 03/02 SC 1653 Meclizine HCl 25 MG TID PRN 03/01 184 AC PO Methylprednisolone 1,000 MG 1600 03/02 1600 AC 03/02 Dextrose/Water 1,000 ML IV 1621 Methylprednisolone 1,000 MG DAILY 03/02 1000 DC Dextrose/Water 1,000 ML IV Non-Formulary 0 SEE ADMIN CRITERIA 03/01 184 CAN Medication ANY Pramipexole 1 MG AT BEDTIME 03/02 2199 AC Dihydrochloride PO Pramipexole 1 MG DAILY 03/02 1000 DC Dihydrochloride PO Pramipexole 1 MG AT BEDTIME 03/01 2199 DC 03/01 Dihydrochloride PO 2235 Senna/Docusate Sodium 2 TAB DAILY 03/02 1000 AC PO Sodium Chloride 1,000 ML Q13H 03/02 0045 DC 03/02 IV 03/02 1344 0135 Tiotropium [place] 1 PUF DAILY 03/02 1000 AC 03/02 INH 1007 Travoprost 1 GTT AT BEDTIME 03/01 220 AC OPH Warfarin Sodium 3 MG COUMADIN 1700 ONE 03/02 1700 DC 03/02 PO 03/02 1701 1621 Last 24 Hrs of Lab/Abraham Results Last 24 Hrs of Labs/Mics: Laboratory Tests 03/02/16 0618: Anion Gap 13, Estimated GFR > 60, BUN/Creatinine Ratio 21.3, PT 24.9 H, INR 2.39 H, CBC w Diff NO MAN DIFF REQ, RBC 4.74, MCV 89.8, MCH 30.1, RDW 16.4 H, MPV 8.3, Gran % 88.9 H, Lymphocytes % 10.7 L, Monocytes % 0.4 L, Eosinophils % 0, Basophils % 0 L, Absolute Granulocytes 5.2, Absolute Lymphocytes 0.6 L, Absolute Monocytes 0 L, Absolute Eosinophils 0, Absolute Basophils 0, PUBS MCHC 33.5 Assessment/Plan Assessment: 60 yo F with PMH of Lupus, MS, Bechet's dx, antiphospholid syndrome, PE on coumadin. Here with complaint of urinary retention for about 1 week. Hx of large rectocele and cystocele. Assessment 1. MS exacerbation 2. Urinary Retention 2/2 rectocele and cystocele r/o UTI Urology has recommended to leave pathak for now and follow-up f/u in our office with Dr Estefania Burk or other evaluation. Neuro Consult, waiting for recommendation IV solumedrol 1000mg moreno x 3 days Surgical consult for lumps on her ankle as an outpatient, she'll be given a referral PT/OT Pain Mgt and stool softeners On Coumadin-check INR in am and dose coumadin as needed Alps Problem List: 1. Multiple sclerosis exacerbation 2. Urinary retention Pain Ratin Pain Location: Suprapubic area Pain Goal: Remain pain free Pain Plan: Dilaudid Tomorrow's Labs & Rationales: none Consulting Request: Consulting Specialty: Urology BK [place],DARVIN 03/02/16 1204: Attending MD Review Statement Attending Statement Attending MD Statement: examined this patient, discuss w/resident/PA/COORDINATOR HOTELS, agreed w/resident/PA/COORDINATOR HOTELS, reviewed EMR data (avail), discussed with nursing, discussed with case mgmt, amended to note Attending Assessment/Plan: Patient seen and examined. She reports that her pain is controlled on her current regimen. She continues complain of lower extremity weakness. This is otherwise afebrile at hemodynamically stable. Neurologic consultation was obtained due to her complaints of incontinence. Due to difficulty passing a Pathak catheter intermittently at home recommendations are to discharge patient with an indwelling Pathak catheter follow-up with the urology service as an outpatient. Patient is in agreement with this plan. In the meanwhile we will continue systemic steroid therapy, pain control and obtain a physical therapy consult. A bowel regimen has also been ordered to prevent opioid-induced constipation. Anticipate discharge in the next 24 hours to correction facility for short- term rehabilitation.
[2016-03-02 08:50] VITALS: BP 128/86
[2016-03-02 10:14] LABS: GRANULOCYTE % 88.9 % (42.2-75.2)
--- NOTE | 2016-03-02 11:57 | PN- Student ---
Subjective Subjective: This is a 60 yo F w/ hx of chronic pain, SLE, MS and multiple inpatient admissions who was admitted to [facility] on 03/01 for worsening LE weakness over baseline, suprapubic pain radiating to LE and 1 wk hx of urinary retention vs baseline incontinence. HPI: Pt experiences weakness in all extremeties and urinary incontinence at baseline, and was in this state of health until 1 wk prior to admission, when she found she was unable to void unless lying on bed w/ effort (usually rolling to R side) . After 3 days of this, visiting nurse services performed a straight catheterizaion and removed 900cc of urine. Spears cath then placed by PCP ( Mohini) and is currently still in place. At this time, she also began having constant, progressive suprapubic pain radiating to the LE BL, which was not accompanied by dysuria, although she does report passing clots via urine in the days before admission. She denies fever, chills, SOB, however she reports that her autoimmune conditions prevent her from having fever, even on a prior admission for sepsis. Pt has also reported 1 wk hx of increased numbness in LE from baseline, which is secondary to MS and occurs in all extremities. She denies chest pain, palpitations, loss of consciousness or dysarthria. She has also noted swollen "fatty lumps" on both ankles, that she reports have developed over the last few days and have not been painful, erythematous or warm at any point. PMHx significant for MS, CAD, HTN, PE on coumadin, asthma, COPD, diabetes, SLE, Bechet's dx + antiphospholipid syndrome PSHx includes cholecystectomy and placement of aortic stents FamHx significant for MS in sister SocHx: Lives with spouse and child. Requires assistance w/ ADLs and ambulation w / walker. Recieving visiting nurse services 3X weekly. She does not believe her would be able to assist her w/ intermittent at home catheterizations if they were ordered more frequently than she gets VNS. Long hx as 1/2 ppd smoker, No EtOH, no rec drug use Current Medications Sig/Blanka Start time Last Medication Dose Stop Time Status Admin Acetaminophen 650 MG Q6-PRN PRN 03/02 0045 AC (Tylenol) Atorvastatin Calcium 40 MG DAILY@1700 03/02 1700 AC (Lipitor) Meclizine HCl 25 MG TID PRN 03/01 1844 AC (Antivert) Methylprednisolone 1,000 MG 1600 03/02 1600 AC (Solu Medrol) Dextrose/Water 1,000 ML (D5W 1000) Non-Formulary 0 SEE ADMIN CRITERIA 03/01 1844 CAN Medication (NON FORMULARY) Senna/Docusate Sodium 2 TAB DAILY 03/02 1000 AC (Senokot S) Travoprost 1 GTT AT BEDTIME 03/01 2200 AC (Travatan Z Oph [place]lette 0.004% 2.5ML) Allergies: Metoclopramide (severe), sulfa drugs (swelling), FFP (hives) This morning, she is lying comfortably in bed and cooperative w/ interview. NAD. She reports significant difficulty sleeping due to pain, despite pain mgmt on board. Pain is currently at 7/10 in same distribution. She has been passing flatus and had BM just prior to admission. She is still only able to void when lying down and rolling on R side. Objective Objective: Vital Signs Date Time Temp Pulse Resp B/P Pulse O2 O2 Flow FiO2 Ox Delivery Rate 03/02 0850 97.6 74 20 128/86 94 Nasal 1.0L Cannula 03/02 0800 95 Nasal 2.0L Cannula 03/02 0043 98.1 90 20 150/90 94 Nasal 2.0L Cannula 03/02 0000 94 Nasal 2.0L Cannula 03/01 2132 97.6 78 18 116/64 96 Nasal 2.0L Cannula 03/01 1857 97.1 70 20 114/59 03/01 1733 Nasal 2.0L Cannula 03/01 1733 96 Nasal 2.0L Cannula 03/01 1733 96.6 68 17 114/59 96 Nasal 2.0L Cannula 03/01 1733 95 Nasal 2.0L Cannula 03/01 1538 96.5 72 17 127/62 96 Nasal 2.0L Cannula 03/01 1250 95 Nasal 2.0L Cannula PE: General - AOX3. Cooperative with interview. NAD. HEENT - Atraumatic, PERRLA, EOMI. Neck - Supple. No JVD. No palpable lymph nodes noted Cardiac - RRR, S1S2, no m/r/g Lungs - CTA BL Abd - Soft, nondistended, TTP in suprpubic region, nontender elsewhere. Normal BS. Neuro: Strength 1/5 LE BL, 2/5 UE BL. Decreased sensation in LE. Ext: 1+ pedal edema BL, no other edema noted. Distal pulses palpable BL. Intake & Output 03/02 1600 03/02 0800 03/02 0000 Intake Total 720 240 Output Total 500 700 Balance 220 -460 Intake, IV 600 Intake, Oral 120 240 Output, Urine 500 700 Patient 215 lb Weight Laboratory Tests 03/02/16 0618: Anion Gap 13, Estimated GFR > 60, BUN/Creatinine Ratio 21.3, PT 24.9 H, INR 2.39 H, CBC w Diff NO MAN DIFF REQ, RBC 4.74, MCV 89.8, MCH 30.1, RDW 16.4 H, MPV 8.3, Gran % 88.9 H, Lymphocytes % 10.7 L, Monocytes % 0.4 L, Eosinophils % 0, Basophils % 0 L, Absolute Granulocytes 5.2, Absolute Lymphocytes 0.6 L, Absolute Monocytes 0 L, Absolute Eosinophils 0, Absolute Basophils 0, PUBS MCHC 33.5 03/01/16 1457: Lactic Acid 1.2 03/01/16 1243: Urine Color YEL, Urine Clarity CLEAR, Urine pH 6.0, Ur Specific [place] <= 1.005 , Urine Protein NEG, Urine Ketones NEG, Urine Nitrite NEG, Urine Bilirubin NEG, Urine Urobilinogen 0.2, Ur Leukocyte Esterase NEG, Ur Microscopic EXAM NOT REQUIRED, Urine Hemoglobin NEG, Urine Glucose NEG 03/01/16 1215: Anion Gap 15, Estimated GFR > 60, BUN/Creatinine Ratio 17.1, Glucose 111 H, Lactic Acid 2.1, Calcium 9.2, Total Bilirubin 0.6, AST 21, ALT 26, Alkaline Phosphatase 71, Total Protein 7.2, Albumin 4.1, Globulin 3.1, Albumin/Globulin Ratio 1.3, TSH 0.879, Free T4 0.98, PT 18.7 H, INR 1.79 H, APTT 41 H, CBC w Diff NO MAN DIFF REQ, RBC 4.93, MCV 88.9, MCH 29.8, RDW 16.1 H, MPV 7.7, Gran % 65.5, Lymphocytes % 25.1, Monocytes % 7.4, Eosinophils % 1.5, Basophils % 0.5, Absolute Granulocytes 4.4, Absolute Lymphocytes 1.7, Absolute Monocytes 0.5, Absolute Eosinophils 0.1, Absolute Basophils 0, PUBS MCHC 33.5 Microbiology 03/01 1243 URINE ROUT: Urine Culture - RES 03/01 1235 BLOOD: Blood Culture - RECD 03/01 1215 BLOOD: Blood Culture - RECD CT scan of abdomen and pelvis = mild intrahepatic and extrahepatic biliary duct dilation, which may be normal postcholecystectomy finding. Diagnostic Assessment Basic Assessment Family/Informants Interviewed: n/a Allergies - Coded Allergies: metoclopramide (From REGLAN) (Severe, 03/01/16) Sulfa (Sulfonamide Antibiotics) (SWELLING 03/01/16) Uncoded Allergies: FRESH FROZEN PLASMA (Mild, HIVES 03/01/16) Current Medications - Scheduled Medications Atorvastatin Calcium 40 MG TABLET 1 TAB PO DAILY CHOLESTEROL #30 (Reported) Entered as Reported by HODA RODRIGUEZ on 03/01/16 1239 Baclofen 10 MG TABLET 1 TAB PO BID MUSCLE #90 (Reported) Entered as Reported by HODA RODRIGUEZ on 03/01/16 1241 Duloxetine HCl 40 MG CAPSULE.DR 1 CAP PO DAILY MENTAL HEALTH #90 (Reported) Entered as Reported by HODA RODRIGUEZ on 03/01/16 1238 Ergocalciferol (Vitamin D2) (Vitamin D2) 50,000 UNIT CAPSULE 1 CAP PO QMON SUPPLEMENT #4 (Reported) Entered as Reported by HODA RODRIGUEZ on 03/01/16 1242 Fluticasone/Salmeterol (Advair 250-50 Diskus) 250 MCG-50 MCG/DOSE BLST.W.DEV 1 PUF INH BID BREATHING PROBLEMS (Reported) Entered as Reported by HODA RODRIGUEZ on 03/01/16 1236 Gabapentin 100 MG CAPSULE 1 CAP PO TID PAIN (Reported) Entered as Reported by HODA RODRIGUEZ on 03/01/16 1242 Metoprolol Succinate 50 MG TAB.ER.24H 1 TAB PO DAILY HEART #90 (Reported) Entered as Reported by HODA RODRIGUEZ on 03/01/16 1236 Pramipexole Di-HCl (Pramipexole Dihydrochloride) 1 MG TABLET 1 TAB PO DAILY RESTLESS LEGS #30 (Reported) Entered as Reported by HODA RODRIGUEZ on 03/01/16 1235 Tiotropium [place] (Spiriva) 18 MCG CAP.W.DEV 1 CAP INH DAILY BREATHING PROBLEMS (Reported) Entered as Reported by HODA RODRIGUEZ on 03/01/16 1237 Travoprost (Travatan Z) 0.004 % DROPS 1 GTT OPH QPM EYE (Reported) Entered as Reported by HODA RODRIGUEZ on 03/01/16 1243 Warfarin Sodium (Coumadin) 3 MG TABLET 1 TAB PO 1700 BLOOD THINNER (Reported) Entered as Reported by HODA RODRIGUEZ on 03/01/16 1234 Scheduled PRN Medications Albuterol Sulfate 2.5 MG/3 ML (0.083 %) VIAL.NEB 1 Vial INH/ARLETTE Q6-PRN PRN WHEEZING (Reported) Entered as Reported by HODA RODRIGUEZ on 03/01/16 1240 Diazepam 5 MG TABLET 1 TAB PO TIDPRN PRN ANXIETY #30 (Reported) Entered as Reported by HODA RODRIGUEZ on 03/01/16 1237 Hydromorphone HCl 4 MG TABLET 1 TAB PO Q4 HRS NEEDED PRN PAIN #42 ( Reported) Entered as Reported by HODA RODRIGUEZ on 03/01/16 1235 Meclizine HCl 25 MG TABLET 1 TAB PO Q8P PRN DIZZINESS #90 (Reported) Entered as Reported by HODA RODRIGUEZ on 03/01/16 1238 Ondansetron (Zofran Odt) 4 MG TAB.RAPDIS 1 TAB PO Q6-PRN PRN NAUSEA/VOMITING # 15 (Reported) Entered as Reported by HODA RODRIGUEZ on 03/01/16 1239 Assessment/Plan Assessment: This is a 60 yo F w/ hx of chronic pain, SLE, MS and multiple inpatient admissions who was admitted to [facility] on 03/01 for worsening LE weakness over baseline, suprapubic pain radiating to LE and 1 wk hx of urinary retention vs baseline incontinence. Admitted under suspicion for MS exacerbation, as well as retention secondary to neurogenic bladder vs obstructive cystocele vs UTI. Her problem list includes (1) MS exacerbation (2) Urinary retention (3) Potential lipomas on ankle Plan: 1) MS Exacerbation -Neuro consult Dr. Olivarez -IV solumedrol 100mg X 3 days per neuro -Continue home meds -IV hydration -PT scheduled this morning -Pain mgmt on board -Monitor INR 2) Urinary retention -Uro consult = suspect neurogenic bladder secondary to MS as cause of retention, but cannot r/o blockage by cystocele, corrective surgery not indicated for this high risk pt. Intermittent cath as optimal tx, but pt has expressed concerns about being able to do this on days VNS are not there, Spears remains for today monitoring I&O's -F/U Dr. Estefania Burk as outpatient, possible pessary placement -Await UCx from 03/01. Pt is afebrile w/ normal UA, but she reports being afebrile even during a prior hospitilization for sepsis, due to autoimmune conditions. Multiple comorbidities, frequent hospitilizations and incontinence may put her at risk for atypical causes of UTI. 3) Lumps on ankle -May require surgical consult as outpatient for potential lipomas
[2016-03-02 15:53] VITALS: BP 110/72
[2016-03-03 00:38] VITALS: BP 100/60
[2016-03-03 08:13] VITALS: BP 130/78
[2016-03-03 08:23] LABS: PT 27.7 SEC (9.4-12.5)
--- NOTE | 2016-03-03 08:44 | Patient Discharge Instructions ---
Discharge Instructions General Discharge Information You were seen/treated for: Weakness Urinary retention Special Instructions: Your home dose of metoprolol is 5omg daily but in hospital we changed it to 25mg daily as your blood pressure and had low heart rate, please follow-up with your primary care physician so as dose can be adjusted safely. Please follow-up with surgery for further evaluation of the lumps on your angles secondary further evaluated, refers having provided. Please follow-up with urology as you have a Spears's catheter, to discuss further plans on whether to keep it in. Follow-up with your neurologist in 1 week for further treatment for multiple sclerosis. Diet Continue normal diet: Yes Recommended Diet: Diabetic Acute Coronary Syndrome Inclusion Criteria At DC or during hospital stay patient has or had the following: ACS DIAGNOSIS No Discharge Core Measures Meds if any: Prescribed or Continued at Discharge Meds if any: NOT Prescribed or Continued at Discharge Congestive Heart Failure Inclusion Criteria At DC or during hospital stay patient has or had the following: CHF DIAGNOSIS No Discharge Core Measures Meds if any: Prescribed or Continued at Discharge Meds if any: NOT Prescribed or Continued at Discharge Cerebrovascular accident Inclusion Criteria At DC or during hospital stay patient has or had the following: CVA/TIA Diagnosis No Discharge Core Measures Meds if any: Prescribed or Continued at Discharge Meds if any: NOT Prescribed or Continued at Discharge Venous thromboembolism Inclusion Criteria VTE Diagnosis No VTE Type NONE VTE Confirmed by (Test) NONE Discharge Core Measures - Per Current guidelines, there needs to be overlap - treatment for the first 5 days of Warfarin therapy. - If discharged on Warfarin prior to 5 days of - overlap therapy, the patient will need to be - assessed for post discharge needs including - *Post discharge parental anticoagulation - *Warfarin and/or parental anticoagulation education - *Follow up date to check INR post discharge At least 5 days overlap therapy as Inpatient No Meds if any: Prescribed or Continued at Discharge Note: Overlap Therapy is Warfarin and Anticoagulant Meds if any: NOT Prescribed or Continued at Discharge
--- NOTE | 2016-03-03 10:59 | PN- Housestaff ---
[place] 03/03/16 1059: Subjective Follow-up For: MS exacerbation weakness urinary retention Subjective: pt seen and examined, still has weakness in b/l lower ext, some supra pubic discomfort, otherwise vitals wnl no other complaints. Review of Systems Constitutional: Reports: see HPI. Objective Last 24 Hrs of Vital Signs/I&O Vital Signs Date Time Temp Pulse Resp B/P Pulse O2 O2 Flow FiO2 Ox Delivery Rate 03/03 1616 98.0 87 20 148/62 96 Nasal 2.0L Cannula 03/03 1600 Nasal 2.0L Cannula 03/03 1559 64 130/78 03/03 1144 Nasal 4.0L Cannula 03/03 1135 Nasal 4.0L Cannula 03/03 0813 97.9 64 20 130/78 97 Nasal 2.0L Cannula 03/03 0800 95 Nasal 2.0L Cannula 03/03 0038 98.0 83 20 100/60 94 Nasal 2.0L Cannula 03/03 0000 94 Nasal 2.5L Cannula Intake & Output 03/03 1600 03/03 0800 03/03 0000 Intake Total 2387 940 6440 Output Total 600 1000 2600 Balance 1300 -900 -1450 Intake, IV 1000 0 1000 Intake, Oral 900 100 150 Number 0 0 Bowel Movements Output, Urine 600 1000 2600 Physical Exam General Appearance: Alert, Oriented X3, Cooperative, No Acute Distress Cardiovascular: Regular Rate, Normal S1, Normal S2, No Murmurs Lungs: Clear to Auscultation, Normal Air Movement Abdomen: Normal Bowel Sounds, Soft, No Tenderness Extremities: No Clubbing, No Cyanosis, No Edema, lipoma like masses b/l ankles Current Medications: Current Medications Sig/Blanka Start time Last Medication Dose Route Stop Time Status Admin Acetaminophen 650 MG Q6-PRN PRN 03/02 0045 AC PO Albuterol Sulfate 3 ML Q4P PRN 03/02 1400 AC INH Atorvastatin Calcium 40 MG DAILY@1700 03/02 1700 AC 03/03 PO 1702 Baclofen 10 MG BID 03/01 2200 AC 03/03 PO 0956 Budesonide/ 2 PUF BID 03/02 1000 AC 03/03 Formoterol Fumarate INH 0957 Diazepam 5 MG TID PRN 03/01 1845 AC 03/02 PO 0427 Docusate Sodium 100 MG DAILY 03/02 1000 DC 03/03 PO 0956 Duloxetine HCl 40 MG DAILY 03/02 1000 AC 03/03 PO 0956 Gabapentin 100 MG TID 03/01 2200 AC 03/03 PO 1559 Hydromorphone HCl 1 MG Q4P PRN 03/01 2015 DC 03/03 IV 0400 Hydromorphone HCl 4 MG Q4P PRN 03/01 1845 AC 03/03 PO 1513 Insulin Aspart 0 TIDAC 03/02 0800 AC 03/03 SC 1701 Meclizine HCl 25 MG TID PRN 03/01 1845 AC PO Methylprednisolone 1,000 MG 1000 03/03 1000 AC 03/03 Dextrose/Water 1,000 ML IV 0957 Methylprednisolone 1,000 MG 1600 03/02 1600 DC 03/02 Dextrose/Water 1,000 ML IV 1621 Metoprolol Tartrate 25 MG ONCE ONE 03/03 1415 DC 03/03 PO 03/03 1416 1559 Patient Medication 1 ED .STK-MED ONE 03/03 1326 DC Teaching ED 03/03 1327 Pramipexole 1 MG AT BEDTIME 03/02 220 AC 03/02 Dihydrochloride PO 2120 Senna/Docusate Sodium 2 TAB DAILY 03/02 1000 DC 03/03 PO 0956 Tiotropium [place] 1 PUF DAILY 03/02 1000 AC 03/03 INH 0957 Travoprost 1 GTT AT BEDTIME 03/01 220 AC OPH Warfarin Sodium 3 MG COUMADIN 1700 ONE 03/03 1700 DC 03/03 PO 03/03 1701 1701 Last 24 Hrs of Lab/Abraham Results Last 24 Hrs of Labs/Mics: Laboratory Tests 03/03/16 0618: PT 27.7 H, INR 2.66 H Assessment/Plan Assessment: 60 yo F with PMH of Lupus, MS, Bechet's dx, antiphospholid syndrome, PE on coumadin. Here with complaint of urinary retention for about 1 week. Hx of large rectocele and cystocele. Assessment 1. MS exacerbation 2. Urinary Retention 2/2 rectocele and cystocele r/o UTI MS exacerbation: IV solumedrol 1000mg moreno x 3 days Neuro Consult, waiting for recommendation Urinary Retention 2/2 rectocele and cystocele: Urology has recommended to leave pathak for now and follow-up f/u in our office with Dr Estefania Burk or other evaluation. Surgical consult for lumps on her ankle as an outpatient, she'll be given a referral PT/OT Pain Mgt and stool softeners On Coumadin-check INR in am and dose coumadin as needed Alps Problem List: 1. Multiple sclerosis exacerbation 2. Urinary retention Pain Ratin Pain Location: supra pubic area Pain Goal: Remain pain free Pain Plan: dilaudid Tomorrow's Labs & Rationales: none Consulting Request: Consulting Specialty: Urology DARVIN BOURGEOIS MD 03/03/16 1214: Attending MD Review Statement Attending Statement Attending MD Statement: examined this patient, discuss w/resident/PA/RENEWABLE ENERGY DIVISION MANAGER, agreed w/resident/PA/RENEWABLE ENERGY DIVISION MANAGER, reviewed EMR data (avail), discussed with nursing, discussed with case mgmt, amended to note Attending Assessment/Plan: She has seen and examined. Resting comfortably not in acute distress. No issues overnight. She reports feeling better this morning. At baseline she reports ambulating with use of rolling walker and occasionally with a wheelchair. Has strength go improved and lower extremities remains very weak. Power in her lower extremities are about 2+. She denies shortness of breath or cough. Denies chest pain. She is worried about swelling on her lateral malleoli bilaterally. On examination disease lesions are soft, mobile and nontender. There is no erythema. They do not appear connected to the joints. Differentials include lipomas for which we have recommended she follow-up with the general surgery service as an outpatient. Problems: 1. Multiple sclerosis exacerbation. 2. COPD 3. Lupus 4. Afib on AC Plan: -She is complete her steroid infusion today after which is medically stable to be discharged. -Physical therapy services recommending short-term rehabilitation and patient is agreeable. -She may be discharged once a bed becomes available. -We'll add a bowel regimen to her discharge medications. -BP is on the lower side. Metoprolol has been on hold. Resunme now at 25mg twice daily.
--- NOTE | 2016-03-03 13:25 | Discharge Summary ---
See Addendum Visit Information Visit Dates Admission Date: 03/01/16 Discharge Date: 03/03/16 Hospital Course Course Attending Physician: Dr. Connor Primary Care Physician: TERESA [facility],EDI Johnson Other Care Providers: Dr. Olivarez Consulting Request: Consulting Specialty: Urology Hospital Course: 60 yo F with PMH of Lupus, MS, Bechet's dx, antiphospholid syndrome, PE on coumadin. Here with complaint of urinary retention and lower abd pain and pressure for about 1 week. Also complains of lower extremity weakness bilaterally with left leg numbness and tingling. At baseline she is incontinent but has been having difficulty urinating for the past week neccessitating the placement of a pathak catheter by her home care nurse prior to admission. She was diagnosed 2 years ago with a large rectocele and cystocele but could not get surgical correction due to her comorbidities as she was considered high risk.She also complains of lumps on her ankle that appered suddenly last week and are getting slightly increased in size, they are not painful. No prior hx of similar bumps in the past. She has a history of diabetes controlled with diet but she requires sc insulin whenever she is placed on steroids. Recently discharged from [facility] 2 weeks ago where she was treated for tachycardia and hypoxia, and MRI of her brain showed noted significant changes in the plaques in her brain. She follows up with Dr. Olivarez for her MS. Based on his recommendations she was given 3 doses of IV Solu-Medrol, a thousand milligrams daily and she got physical and occupational therapy with some improvement. She will be continuing PT/OT at a short-term rehabilitation center o discharge. She will need to follow up with Dr Estefania Burk (Urology) so she can be evaluated for possible pessary insertion as this may eliminate any contribution the cystocele/rectocele has in her urinary retention. The urologist recommends that she keeps the Pathak in place for now intermittent catheterization is not really feasible for her at this time. She also needs to follow up with a surgeon to evaluate the lumps on her ankles, likely they are lipomas. Complications: none Allergies: Coded Allergies: metoclopramide (From REGLAN) (Severe, 03/01/16) Sulfa (Sulfonamide Antibiotics) (SWELLING 03/01/16) Uncoded Allergies: FRESH FROZEN PLASMA (Mild, HIVES 03/01/16) Significant Procedures: none Pertinent Lab Results: Laboratory Tests 03/03 03/02 03/01 0618 0618 1457 Chemistry Sodium (137 - 145 mmol/L) 137 Potassium (3.5 - 5.1 mmol/L) 5.0 Chloride (98 - 107 mmol/L) 96 L Carbon Dioxide (22 - 30 mmol/L) 28 Anion Gap (5 - 16) 13 BUN (7 - 17 mg/dL) 17 Creatinine (0.5 - 1.0 mg/dL) 0.8 Estimated GFR (>60 ml/min) > 60 BUN/Creatinine Ratio (7 - 25 %) 21.3 Lactic Acid (0.7 - 2.1 mmol/L) 1.2 Coagulation PT (9.4 - 12.5 SEC) 27.7 H 24.9 H INR (0.90 - 1.19) 2.66 H 2.39 H Hematology CBC w Diff NO MAN DIFF REQ WBC (4.8 - 10.8 /CUMM) 5.8 RBC (4.20 - 5.40 /CUMM) 4.74 Hgb (12.0 - 16.0 G/DL) 14.3 Hct (37 - 47 %) 42.5 MCV (81.0 - 99.0 FL) 89.8 MCH (27.0 - 31.0 PG) 30.1 RDW (11.5 - 14.5 %) 16.4 H Plt Count (130 - 400 /CUMM) 173 MPV (7.4 - 10.4 FL) 8.3 Gran % (42.2 - 75.2 %) 88.9 H Lymphocytes % (20.5 - 51.1 %) 10.7 L Monocytes % (1.7 - 9.3 %) 0.4 L Eosinophils % (0 - 5 %) 0 Basophils % (0.0 - 2.0 %) 0 L Absolute Granulocytes (1.4 - 6.5 /CUMM) 5.2 Absolute Lymphocytes (1.2 - 3.4 /CUMM) 0.6 L Absolute Monocytes (0.10 - 0.60 /CUMM) 0 L Absolute Eosinophils (0.0 - 0.7 /CUMM) 0 Absolute Basophils (0.0 - 0.2 /CUMM) 0 PUBS MCHC (33.0 - 37.0 G/DL) 33.5 03/01 03/01 1243 1215 Chemistry Sodium (137 - 145 mmol/L) 140 Potassium (3.5 - 5.1 mmol/L) 4.1 Chloride (98 - 107 mmol/L) 101 Carbon Dioxide (22 - 30 mmol/L) 24 Anion Gap (5 - 16) 15 BUN (7 - 17 mg/dL) 12 Creatinine (0.5 - 1.0 mg/dL) 0.7 Estimated GFR (>60 ml/min) > 60 BUN/Creatinine Ratio (7 - 25 %) 17.1 Glucose (65 - 99 mg/dL) 111 H Lactic Acid (0.7 - 2.1 mmol/L) 2.1 Calcium (8.4 - 10.2 mg/dL) 9.2 Total Bilirubin (0.2 - 1.3 mg/dL) 0.6 AST (14 - 36 U/L) 21 ALT (9 - 52 U/L) 26 Alkaline Phosphatase (<127 U/L) 71 Total Protein (6.3 - 8.2 g/dL) 7.2 Albumin (3.5 - 5.0 g/dL) 4.1 Globulin (1.9 - 4.2 gm/dL) 3.1 Albumin/Globulin Ratio (1.1 - 2.2 %) 1.3 TSH (0.270 - 4.200 uIU/mL) 0.879 Free T4 (0.64 - 1.79 ng/dL) 0.98 Coagulation PT (9.4 - 12.5 SEC) 18.7 H INR (0.90 - 1.19) 1.79 H APTT (25 - 37 SEC) 41 H Hematology CBC w Diff NO MAN DIFF REQ WBC (4.8 - 10.8 /CUMM) 6.7 RBC (4.20 - 5.40 /CUMM) 4.93 Hgb (12.0 - 16.0 G/DL) 14.7 Hct (37 - 47 %) 43.9 MCV (81.0 - 99.0 FL) 88.9 MCH (27.0 - 31.0 PG) 29.8 RDW (11.5 - 14.5 %) 16.1 H Plt Count (130 - 400 /CUMM) 183 MPV (7.4 - 10.4 FL) 7.7 Gran % (42.2 - 75.2 %) 65.5 Lymphocytes % (20.5 - 51.1 %) 25.1 Monocytes % (1.7 - 9.3 %) 7.4 Eosinophils % (0 - 5 %) 1.5 Basophils % (0.0 - 2.0 %) 0.5 Absolute Granulocytes (1.4 - 6.5 /CUMM) 4.4 Absolute Lymphocytes (1.2 - 3.4 /CUMM) 1.7 Absolute Monocytes (0.10 - 0.60 /CUMM) 0.5 Absolute Eosinophils (0.0 - 0.7 /CUMM) 0.1 Absolute Basophils (0.0 - 0.2 /CUMM) 0 PUBS MCHC (33.0 - 37.0 G/DL) 33.5 Urines Urine Color (YEL,AMB,STR) YEL Urine Clarity (CLEAR) CLEAR Urine pH (5.0 - 8.0) 6.0 Ur Specific [place] (1.001 - 1.035) <= 1.005 Urine Protein (NEG,<30 MG/DL) NEG Urine Ketones (NEG) NEG Urine Nitrite (NEG) NEG Urine Bilirubin (NEG) NEG Urine Urobilinogen (0.1 - 1.0 EU/dl) 0.2 Ur Leukocyte Esterase (NEG) NEG Ur Microscopic EXAM NOT REQUIRED Urine Hemoglobin (NEG) NEG Urine Glucose (N MG/DL) NEG Disposition Summary Disposition Principal Diagnosis: Acute MS exacerbation, urinary retention secondary to rectocele and cystocele Additional Diagnosis: Diet-controlled Type 2 diabetes, COPD on home O2, lupus, antiphospholipid syndrome, PE on Coumadin, Behcet's disease, Possible lipomas on both ankles. Discharge Disposition: SNF Discharge Instructions General Discharge Information Code Status: Full Code Patient's Diet: Diabetic Patient's Activity: As tolerated; Physical and occupational therapy Follow-Up Instructions/Appts: Please follow-up with your primary care physician in one week after discharge Please follow up with her neurologist Dr. Olivarez in 1-2 weeks after discharge Please follow-up with the urologist in 1-2 weeks after discharge Please keep the Pathak catheter in till you visit your urologist Please follow up with the surgeon for evaluation on the lumps on your ankles Medications at Discharge Discharge Medications: Stop taking the following medications: Metoprolol Succinate (Metoprolol Succinate) 50 MG TAB.ER.24H ORAL DAILY Qty = 90 Continue taking these medications: Warfarin Sodium (Coumadin) 3 MG TABLET 1 Tablet ORAL 5 PM Hydromorphone HCl (Hydromorphone HCl) 4 MG TABLET 1 Tablet ORAL EVERY 4 HOURS NEEDED as needed for PAIN Qty = 42 Pramipexole Di-HCl (Pramipexole Dihydrochloride) 1 MG TABLET 1 Tablet ORAL DAILY Qty = 30 Fluticasone/Salmeterol (Advair 250-50 Diskus) 250 MCG-50 MCG/DOSE BLST.W.DEV 1 Puff Inhale through mouth TWICE DAILY Tiotropium [place] (Spiriva) 18 MCG CAP.W.DEV 1 Capsule Inhale through mouth DAILY Diazepam (Diazepam) 5 MG TABLET 1 Tablet ORAL THREE TIMES A DAY NEEDED as needed for ANXIETY Qty = 30 Meclizine HCl (Meclizine HCl) 25 MG TABLET 1 Tablet ORAL EVERY 8 HOURS NEEDED as needed for DIZZINESS Qty = 90 Duloxetine HCl (Duloxetine HCl) 40 MG CAPSULE.DR 1 Capsule ORAL DAILY Qty = 90 Atorvastatin Calcium (Atorvastatin Calcium) 40 MG TABLET 1 Tablet ORAL DAILY Qty = 30 Ondansetron (Zofran Odt) 4 MG TAB.RAPDIS 1 Tablet ORAL EVERY 6 HOURS NEEDED as needed for NAUSEA/VOMITING Qty = 15 Albuterol Sulfate (Albuterol Sulfate) 2.5 MG/3 ML (0.083 %) VIAL.NEB 1 Vial Inhale Solution EVERY 6 HOURS NEEDED as needed for WHEEZING Baclofen (Baclofen) 10 MG TABLET 1 Tablet ORAL TWICE DAILY Qty = 90 Ergocalciferol (Vitamin D2) (Vitamin D2) 50,000 UNIT CAPSULE 1 Capsule ORAL EVERY SUNDAY Qty = 4 Gabapentin (Gabapentin) 100 MG CAPSULE 1 Capsule ORAL THREE TIMES DAILY Travoprost (Travatan Z) 0.004 % DROPS 1 Drop In the eye Every night Copies To: TERESA MIDDLETON,EDI Johnson
--- NOTE | 2016-03-03 13:36 | PN- Student ---
Subjective Subjective: This is a 60 yo F w/ extensive PMHx including SLE, MS, Bechet's, antiphospholipid syndrome, PE on coumadin here for 1 wk of urinary retention and MS exacerbation. Today, pt was awake lying comfortably in bed and cooperative w/ interview. No acute events overnight. Still complaining of suprapubic pain radiating the the LE BL, but reports better pain control since yesterday. She also reports less weakness in LE, feeling that she is better able to lift her legs from the bed, although she was unable to bear any weight during PT visit yesterday. Pt is tolerating regular diet w/ no N/V. She reports passing flatus, but has not had a BM since before admission on 03/01, reports that her constipation usually resolves w/ Senna and has a tablet ordered for today. She is looking forward to D/C today or tomorrow to [facility]. Objective Objective: Vital Signs Date Time Temp Pulse Resp B/P Pulse O2 O2 Flow FiO2 Ox Delivery Rate 03/03 1144 Nasal 4.0L Cannula 03/03 1135 Nasal 4.0L Cannula 03/03 0813 97.9 64 20 130/78 97 Nasal 2.0L Cannula 03/03 0800 95 Nasal 2.0L Cannula 03/03 0038 98.0 83 20 100/60 94 Nasal 2.0L Cannula 03/03 0000 94 Nasal 2.5L Cannula 03/02 1600 95 Nasal 2.0L Cannula 03/02 1553 98.2 82 18 110/72 94 Room Air 03/02 1347 Nasal 2.5L Cannula Intake & Output 03/03 1600 03/03 0800 03/03 0000 Intake Total 100 1150 Output Total 600 1000 2600 Balance -600 -900 -1450 Intake, IV 0 1000 Intake, Oral 100 150 Number 0 Bowel Movements Output, Urine 600 1000 2600 Physical Exam: Gen - NAD. Cooperative w/ interview. Breathing comfortably on 2L O2 per nasal cannula Cardiac - RRR, S1S2, no m/r/g Lungs - CTA BL Abd - Soft, ND, tenderness to palpation in suprapubic region reduced from yesterday, NT elsewhere. Normoactive BS. Ext - 1+ pedal edema. Fatty growths on ankles BL Laboratory Tests 03/03 03/02 03/01 0618 0618 1457 Chemistry Sodium (137 - 145 mmol/L) 137 Potassium (3.5 - 5.1 mmol/L) 5.0 Chloride (98 - 107 mmol/L) 96 L Carbon Dioxide (22 - 30 mmol/L) 28 Anion Gap (5 - 16) 13 BUN (7 - 17 mg/dL) 17 Creatinine (0.5 - 1.0 mg/dL) 0.8 Estimated GFR (>60 ml/min) > 60 BUN/Creatinine Ratio (7 - 25 %) 21.3 Lactic Acid (0.7 - 2.1 mmol/L) 1.2 Coagulation PT (9.4 - 12.5 SEC) 27.7 H 24.9 H INR (0.90 - 1.19) 2.66 H 2.39 H Hematology CBC w Diff NO MAN DIFF REQ WBC (4.8 - 10.8 /CUMM) 5.8 RBC (4.20 - 5.40 /CUMM) 4.74 Hgb (12.0 - 16.0 G/DL) 14.3 Hct (37 - 47 %) 42.5 MCV (81.0 - 99.0 FL) 89.8 MCH (27.0 - 31.0 PG) 30.1 RDW (11.5 - 14.5 %) 16.4 H Plt Count (130 - 400 /CUMM) 173 MPV (7.4 - 10.4 FL) 8.3 Gran % (42.2 - 75.2 %) 88.9 H Lymphocytes % (20.5 - 51.1 %) 10.7 L Monocytes % (1.7 - 9.3 %) 0.4 L Eosinophils % (0 - 5 %) 0 Basophils % (0.0 - 2.0 %) 0 L Absolute Granulocytes (1.4 - 6.5 /CUMM) 5.2 Absolute Lymphocytes (1.2 - 3.4 /CUMM) 0.6 L Absolute Monocytes (0.10 - 0.60 /CUMM) 0 L Absolute Eosinophils (0.0 - 0.7 /CUMM) 0 Absolute Basophils (0.0 - 0.2 /CUMM) 0 PUBS MCHC (33.0 - 37.0 G/DL) 33.5 Microbiology Date/Time Procedure - Status Source Growth 03/01 1243 Urine Culture - COMP URINE ROUT 03/01 1235 Blood Culture - RES BLOOD 03/01 1215 Blood Culture - RES BLOOD Current Medications Sig/Blanka Start time Last Medication Dose Stop Time Status Admin Acetaminophen 650 MG Q6-PRN PRN 03/02 0045 AC (Tylenol) Albuterol Sulfate 3 ML Q4P PRN 03/02 1400 AC (Proventil) Meclizine HCl 25 MG TID PRN 03/01 1845 AC (Antivert) Travoprost 1 GTT AT BEDTIME 03/01 2200 AC (Travatan Z Oph Kami 0.004% 2.5ML) Warfarin Sodium 3 MG COUMADIN 1700 ONE 03/03 1700 AC (Coumadin) 03/03 1701 Assessment/Plan Assessment: This is a 60 yo F w/ extensive medical hx including MS and chroic pain and baseline incontinence who was admitted 03/01 for MS exacerbation and urinary retention secondary to neurogenic bladder vs blockage by large cystocele. Her problems include (1) MS exacerbation (2) Urinary retention (3) BL growths on ankles and (4) Multiple comorbidities Plan: 1) MS exacerbation -Neuro consult Dr. Beal -D/C to [facility] when bed is available -Last dose of IV solumedrol today -Pain mgmt on board -Bowel regimen on board 2) Urinary retention -D/C w/ indwelling Spears per Uro -F/U Dr. Estefania Burk as outpatient for further eval of cystocele, possible Pessary insertion -Awaiting UCx 3) BL ankle growths -F/U gen surg as outpatient for evaluation 4) Multiple comorbidities -F/U PT, INR today -DVT prophylaxis until D/C
[2016-03-03] MEDS ORDERED: METOPROLOL SUCC25 M1 PO (14:08)
[2016-03-03] MEDS ORDERED: MIRALAX17 G1 PO (15:05)
[2016-03-03] MEDS ORDERED: COLACE100 M1 PO (15:05)
[2016-03-03 16:16] VITALS: BP 148/62
[2016-03-04 00:27] VITALS: BP 134/72
[2016-03-04 08:32] VITALS: BP 130/70
--- NOTE | 2016-03-04 08:59 | PN- Housestaff ---
See Addendum Subjective Follow-up For: MS exacerbation weakness urinary retention Subjective: pt seen and examined, still has weakness and pain, predominantly in the bilateraly LEs. She also endroses some supra pubic discomfort. Otherwise vitals wnl no other complaints. Steroid to be discontinued today. She understands that she is stable for discharge and currently pending for a bed at a rehab facility. Review of Systems Constitutional: Reports: see HPI. Objective Last 24 Hrs of Vital Signs/I&O Vital Signs Date Time Temp Pulse Resp B/P Pulse O2 O2 Flow FiO2 Ox Delivery Rate 03/04 831 97.6 56 20 130/70 93 Nasal 2.5L Cannula 03/04 0821 98 Nasal 2.5L Cannula 03/04 0027 97.9 59 20 134/72 94 03/04 0000 94 Nasal 2.5L Cannula 03/03 1616 98.0 87 20 148/62 96 Nasal 2.0L Cannula 03/03 1600 Nasal 2.0L Cannula 03/03 1559 64 130/78 03/03 1144 Nasal 4.0L Cannula 03/03 1135 Nasal 4.0L Cannula Intake & Output 03/04 1600 03/04 0800 03/04 0000 Intake Total 100 1000 Output Total 300 700 Balance -200 300 Intake, Oral 100 1000 Output, Urine 300 700 Physical Exam General Appearance: Alert, Oriented X3, Cooperative, No Acute Distress Other Physical Findings: Cardiovascular: Regular Rate, Normal S1, Normal S2, No Murmurs Lungs: Clear to Auscultation, Normal Air Movement Abdomen: Normal Bowel Sounds, Soft, No Tenderness Extremities: No Clubbing, No Cyanosis, No Edema, lipoma like masses b/l ankles Current Medications: Current Medications Sig/Blanka Start time Last Medication Dose Route Stop Time Status Admin Acetaminophen 650 MG Q6-PRN PRN 03/02 0045 AC PO Albuterol Sulfate 3 ML Q4P PRN 03/02 1400 AC 03/04 INH 0820 Atorvastatin Calcium 40 MG DAILY@1700 03/02 1700 AC 03/03 PO 1702 Baclofen 10 MG BID 03/01 220 AC 03/03 PO 2049 Budesonide/ 2 PUF BID 03/02 1000 AC 03/03 Formoterol Fumarate INH 205 Diazepam 5 MG TID PRN 03/01 1845 AC 03/03 PO 2241 Docusate Sodium 100 MG DAILY 03/02 1000 DC 03/03 PO 0956 Duloxetine HCl 40 MG DAILY 03/02 1000 AC 03/03 PO 0956 Gabapentin 100 MG TID 03/01 2200 AC 03/03 PO 2050 Hydromorphone HCl 1 MG Q4P PRN 03/01 2015 DC 03/03 IV 0400 Hydromorphone HCl 4 MG Q4P PRN 03/01 1845 AC 03/04 PO 0432 Insulin Aspart 0 TIDAC 03/02 0800 AC 03/03 SC 1701 Meclizine HCl 25 MG TID PRN 03/01 1845 AC PO Methylprednisolone 1,000 MG 1000 03/03 1000 AC 03/03 Dextrose/Water 1,000 ML IV 0957 Metoprolol Tartrate 25 MG ONCE ONE 03/03 1415 DC 03/03 PO 03/03 1416 1559 Patient Medication 1 ED .STK-MED ONE 03/03 1326 DC Teaching ED 03/03 1327 Pramipexole 1 MG AT BEDTIME 03/02 2199 AC 03/03 Dihydrochloride PO 2049 Senna/Docusate Sodium 2 TAB DAILY 03/02 1000 DC 03/03 PO 0956 Tiotropium [place] 1 PUF DAILY 03/02 1000 AC 03/03 INH 0957 Travoprost 1 GTT AT BEDTIME 03/01 220 AC OPH Warfarin Sodium 3 MG COUMADIN 1700 ONE 03/03 1700 DC 03/03 PO 03/03 1701 1701 Assessment/Plan Assessment: 60 yo F with PMH of Lupus, MS, Bechet's dx, antiphospholid syndrome, PE on coumadin. Here with complaint of urinary retention for about 1 week. Hx of large rectocele and cystocele. Assessment 1. MS exacerbation 2. Urinary Retention 2/2 rectocele and cystocele r/o UTI MS exacerbation: Discontinue IV solumedrol (completed 3 days) Neuro Consult, waiting for recommendation Urinary Retention 2/2 rectocele and cystocele: Urology has recommended to leave pathak for now and follow-up f/u in our office with Dr Estefania Burk or other evaluation. Surgical consult for lumps on her ankle as an outpatient, she'll be given a referral PT/OT Pain Mgt and stool softeners On Coumadin-check INR in am and dose coumadin as needed Alps Problem List: 1. Multiple sclerosis exacerbation 2. Urinary retention Pain Ratin Pain Location: Suprapubic Pain Goal: Remain pain free Pain Plan: Moderate pathway Tomorrow's Labs & Rationales: None - pending discharge Consulting Request: Consulting Specialty: Urology
--- NOTE | 2016-03-04 13:00 | NUR ---
PATIENT C/O OF LOWER ABD PAIN 09/04. DILAUDID 4MG PO PRN OFFERED TO PATIENT. PATIENT STATED "WOULD LIKE TO HAVE BREAKTHROUGH PAIN MEDICATION" THERE WERE NO BREAKTHROUGH MEDS ORDERED AND SAME WAS RELATED TO PATIENT. I ALSO TOLD PATIENT THE DOCTOR NEEDS TO ORDER THAT MEDICATION AND I WILL INFORM HIM ABOUT HER REQUEST. I AGAIN OFFERED HER THE PO DILAUDID AND PATIENT REFUSED STATING "WILL WAIT FOR BREAKTHROUGH MED WHEN ORDERED. FAMILY MEDICINE PHYSICIAN ASSISTANT WAS PAGED BUT HAS NOT RETURN CALL.
--- NOTE | 2016-03-04 14:30 | NUR ---
THIS NURSE TO PATIENT'S ROOM. PATIENT C/O SHE HAS NOT RECEIVED MED YET AND WOULD LIKE SOMETHING FOR PAIN. I OFFERED HER PO DILAUDID BUT PATIENT INSISTED SHE WANTS IV DILAUDID FOR BREAKTHROUGH. I TOLD PATIENT THE DR HAS NOT REPLY AND I AM STILL WAITING FOR HIM TO CALL BACK. I AGAIN OFFERED PATIENT PO DILAUDID AND TOLD HER IT WILL NOT AFFECT ANY BREAKTHROUGH MEDS IF THE DR ORDERS IT.I GAVE PATIENT PRN DOSE OF DILAUDID. PAGE MOD AND RELAY INFO TO HER FREIGHT RATE ANALYST HAS NOT RETURN MY PAGES.
[2016-03-04 15:50] VITALS: BP 140/80
--- NOTE | 2016-03-04 16:47 | NUR ---
LATE ENTRY: PT RELAYING CONCERN REGARDING NEED FOR BREAKTHROUGH PAIN MEDICINE. PT ON DILAUDID 4MG Q4 HRS PRN. CHRONIC PAIN PT. SENIOR ENERGY MARKET COORDINATOR RHYS NOTIFIED. MOD LATER CONTACTED ISSUE NOT RESOLVED. MD TO COME UP AND SPEAK TO PT. PENDING MD'S ARRIVAL TO SEE PT. WILL CONT TO MONITOR.
--- NOTE | 2016-03-04 18:45 | NUR ---
FILM BOOKER RHYS UP TO SEE PT. AFTER SPEAKING WITH PT, WILLING TO ORDER ONE TIME DOSES OF IV DILAUDID IF NEEDED FOR PT'S BREAKTHROUGH PAIN. PT APPRECIATIVE. NIGHT RN UPDATED. WILL CONT TO MONITOR.
[2016-03-05 00:01] VITALS: BP 124/60
--- NOTE | 2016-03-05 06:38 | NUR ---
NOTED URIN PINK IN COLOR. #[phone] MADE AWARE.
[2016-03-05 08:22] LABS: PT 26.8 SEC (9.4-12.5)
[2016-03-05 08:30] VITALS: BP 130/82
--- NOTE | 2016-03-05 09:01 | PN- Housestaff ---
[place] [facility] 03/05/16 0901: Subjective Follow-up For: MS exacerbation weakness urinary retention Subjective: Patient seen and examined this morning. She was sitting in bed in no acute distress. Urine stained with blood in Pathak bag, but clear in the Pathak catheter. We'll continue to monitor, will get UA, otherwise patient has been stable, within normal limits vitals, continued to have weakness in her lower left extremities bilaterally Review of Systems Constitutional: Denies: chills, fever. Respiratory: Reports: cough. Denies: short of breath, sputum production. Gastrointestinal: Denies: abdominal pain, constipation, diarrhea, nausea, vomiting. Genitourinary: Reports: see HPI. Musculoskeletal: Reports: see HPI. Objective Last 24 Hrs of Vital Signs/I&O Vital Signs Date Time Temp Pulse Resp B/P Pulse O2 O2 Flow FiO2 Ox Delivery Rate 03/05 829 97.9 83 20 130/82 100 Nasal 2.5L Cannula 03/05 08 Nasal 2.5L Cannula 03/05 0531 96 Nasal 2.5L Cannula 03/05 0001 98.2 80 20 124/60 94 03/05 0000 94 Nasal 2.5L Cannula 03/04 2154 95 Nasal 2.5L Cannula 03/04 1600 Nasal 2.5L Cannula 03/04 1550 98.0 79 18 140/80 97 Nasal 2.0L Cannula Intake & Output 03/05 1600 03/05 0800 03/05 0000 Intake Total 120 360 Output Total 550 1200 Balance -430 -840 Intake, Oral 120 360 Output, Urine 550 1200 Physical Exam General Appearance: Alert, Oriented X3, Cooperative, No Acute Distress Cardiovascular: Regular Rate, Normal S1, Normal S2 Lungs: Clear to Auscultation, Normal Air Movement Abdomen: Normal Bowel Sounds, Soft, No Tenderness Extremities: No Clubbing, No Cyanosis, b/l ankle ?lipomas Current Medications: Current Medications Sig/Blanka Start time Last Medication Dose Route Stop Time Status Admin Acetaminophen 650 MG Q6-PRN PRN 03/02 0045 AC PO Albuterol Sulfate 3 ML Q4P PRN 03/02 1400 AC 03/05 INH 0521 Atorvastatin Calcium 40 MG DAILY@1700 03/02 1700 AC 03/04 PO 1649 Baclofen 10 MG BID 03/01 2200 AC 03/05 PO 0751 Budesonide/ 2 PUF BID 03/02 1000 AC 03/05 Formoterol Fumarate INH 0750 Diazepam 5 MG TID PRN 03/01 1845 AC 03/03 PO 2241 Duloxetine HCl 40 MG DAILY 03/02 1000 AC 03/05 PO 0750 Gabapentin 100 MG TID 03/01 2200 AC 03/05 PO 0751 Hydromorphone HCl 1 MG Q8P PRN 03/05 1015 AC IV Hydromorphone HCl 1 MG ONCE ONE 03/05 0745 DC 03/05 IV 03/05 0746 0746 Hydromorphone HCl 4 MG Q4P PRN 03/01 1845 AC 03/05 PO 0517 Insulin Aspart 0 TIDAC 03/02 0800 AC 03/04 SC 1158 Meclizine HCl 25 MG TID PRN 03/01 1845 AC 03/05 PO 0913 Oxycodone/ 1 TAB Q6P PRN 03/04 1715 DC Acetaminophen PO Patient Medication 1 UNIT ONE NR 03/04 1845 DC Teaching ED 03/04 1900 Pramipexole 1 MG AT BEDTIME 03/02 2200 AC 03/04 Dihydrochloride PO 2144 Tiotropium [place] 1 PUF DAILY 03/02 1000 AC 03/05 INH 0749 Travoprost 1 GTT AT BEDTIME 03/01 2200 AC OPH Warfarin Sodium 3 MG ONCE ONE 03/05 0945 DC PO 03/05 0946 Warfarin Sodium 3 MG ONCE ONE 03/04 1830 DC 03/04 PO 03/04 1831 2144 Last 24 Hrs of Lab/Abraham Results Last 24 Hrs of Labs/Mics: Laboratory Tests 03/05/16 1010: Urine Color Pending, Urine Clarity Pending, Urine pH Pending, Ur Specific [place] Pending, Urine Protein Pending, Urine Ketones Pending, Urine Nitrite Pending, Urine Bilirubin Pending, Urine Urobilinogen Pending, Ur Leukocyte Esterase Pending, Ur Microscopic Pending, Urine Hemoglobin Pending, Urine Glucose Pending 03/05/16 0625: PT 26.8 H, INR 2.58 H Assessment/Plan Assessment: 60 yo F with PMH of Lupus, MS, Bechet's dx, antiphospholid syndrome, PE on coumadin. Here with complaint of urinary retention for about 1 week. Hx of large rectocele and cystocele. Assessment 1. MS exacerbation 2. Urinary Retention 2/2 rectocele and cystocele r/o UTI MS exacerbation: Discontinue IV solumedrol (completed 3 days) Neuro Consult, waiting for recommendation Urinary Retention 2/2 rectocele and cystocele: Urology has recommended to leave pathak for now and follow-up f/u in our office with Dr Estefania Burk or other evaluation. Bloodstained urine seen in the Pathak bag, but urine in the Pathak catheter looks clear, likely traumatic, will get UA, repeat CBC in a.m. to ensure stability, will hold Coumadin if patient continues to have hematuria. Surgical consult for lumps on her ankle as an outpatient, she'll be given a referral PT/OT Pain Mgt and stool softeners On Coumadin-check INR in am and dose coumadin as needed Alps Problem List: 1. Multiple sclerosis exacerbation 2. Urinary retention Pain Ratin Pain Location: Suprapubic area Pain Goal: Remain pain free Pain Plan: IV Dilaudid 1 mg every 8 P Dilaudid by mouth every 4 P Tomorrow's Labs & Rationales: CBC for H&H stability INR for Coumadin dosing Consulting Request: Consulting Specialty: Urology [place] [facility] 03/05/16 1519: Attending MD Review Statement Attending Statement Attending MD Statement: examined this patient, discuss w/resident/PA/SEWING MACHINES SALESPERSON, agreed w/resident/PA/SEWING MACHINES SALESPERSON, reviewed EMR data (avail), discussed with nursing, reviewed images Attending Assessment/Plan: 60-year-old female with past medical history significant for multiple sclerosis, lupus, antiphospholipid antibody syndrome, A. fib on Coumadin, is being admitted on the floor for MS flare. She is finished with her 3 day course of IV steroids. Currently she is waiting for the weekend for shelter facility until Sunday. She is also being followed by the urology for urinary retention which has been attributed to her neurogenic bladder from MS and cystocele or both. Patient would follow-up with the urologist after discharge for possible placement of pessary by Dr. Hi for her cystocele/rectocele.
--- NOTE | 2016-03-05 09:33 | NUR ---
PT C/O "NOT FEELING WELL" THIS AM. VS ASSESSED- WNL. BS 82. BREAKFAST PROVIDED. PT REPORTS "FEELING LIGHTHEADED" WELL- MENTIONED, VSS. PRN MECLINIZINE ADMINISTERED. ALSO, PT NOTED WITH NEW ONSET HEMATURIA. DR. ALEJANDRA CONTACTED. MD UP TO ASSESS PT. MD TO DISCUSS CONCERNS WITH ATTENDING PHYSICIAN, ?CBC AND OR URINE CULTURE ORDERS PENDING. WILL CONT TO MONITOR.
[2016-03-05 13:03] LABS: ABSOLUTE BASOPHIL COUNT 0 /CUMM (0.0-0.2); ABSOLUTE EOSINOPHIL COUNT 0 /CUMM (0.0-0.7); ABSOLUTE GRANULOCYTE CT 6.7 /CUMM (1.4-6.5); ABSOLUTE MONOCYTE COUNT 0.8 /CUMM (0.10-0.60); EOSINOPHIL % 0.1 % (0-5); MEAN PLATELET VOLUME 8.4 FL (7.4-10.4)
[2016-03-05 13:06] LABS: ABSOLUTE LYMPH COUNT 2.5 /CUMM (1.2-3.4); BASOPHIL % 0.4 % (0.0-2.0); GRANULOCYTE % 66.6 % (42.2-75.2); MEAN CORPUSCULAR HGB 29.8 PG (27.0-31.0); MEAN CORPUSCULAR VOLUME 90.4 FL (81.0-99.0); PLATELET COUNT 150 /CUMM (130-400); RBC DISTRIBUTION WIDTH 16.8 % (11.5-14.5); RED BLOOD CELL CT 4.53 /CUMM (4.20-5.40)
[2016-03-05 13:11] LABS: WHITE BLOOD CELL COUNT 10.1 /CUMM (4.8-10.8)
[2016-03-05 15:46] VITALS: BP 120/64
--- NOTE | 2016-03-05 17:08 | NUR ---
PT CONCERNED THAT MILD HEMATURIA RETURNED. PAGED DR ALEJANDRA TO INFORM HER. REVIEWED PT LABS AND VS, BOTH OF WHICH ARE STABLE.
--- NOTE | 2016-03-05 18:26 | NUR ---
PT REPORTS "NOT FEELING RIGHT" AND CONCERNED WITH HER HEMATURIA, REPORTING THAT SHE "HAD BLOOD IN THE URINE OVER THE SUMMER AND HAD SEPSIS". PT REQUESTING TO SEE . VS WERE OBTAINED 148/70 97 98% ON 2.5L TEMP 97.6. ACCUCHECK 119. THIS INFORMATION WAS DISCUSSED WITH DR VIKI ALEJANDRA IN PERSON. TO SEE PT.
[2016-03-05 18:30] VITALS: BP 148/70
[2016-03-05 23:58] VITALS: BP 150/72
--- NOTE | 2016-03-06 07:15 | PN- Urology ---
Subjective Subjective: Patient developed gross hematuria. Now seems to be clearing. Some pelvic pressure. No acute distress Objective Vital Signs and I&Os Vital Signs Date Time Temp Pulse Resp B/P Pulse O2 O2 Flow FiO2 Ox Delivery Rate 03/06 0000 96 Nasal 2.0L Cannula 03/05 2358 98.1 81 20 150/72 96 Nasal 2.0L Cannula 03/05 1901 95 Nasal 2.5L Cannula 03/05 1830 97.6 97 20 148/70 97 Nasal 2.5L Cannula 03/05 1600 Nasal 2.5L Cannula 03/05 1546 98.1 82 20 120/64 96 Nasal 2.5L Cannula 03/05 0830 97.9 83 20 130/82 100 Nasal 2.5L Cannula 03/05 0800 Nasal 2.5L Cannula Intake & Output 03/06 0000 03/05 1600 03/05 0803/05 0000 03/04 1600 Intake Total 200 200 430 120 360 480 Output Total 650 400 527 163 3008 751 Balance -450 -200 80 -430 -840 -271 Intake, IV 30 Intake, Oral 200 200 400 120 360 480 Number 0 Bowel Movements Output, Stool 1 Output, Urine 650 400 709 434 5291 750 Abd: soft and non tender. Pathak with some old blood-tinged urine. No active bleeding CT scan from 03/01/16 shows essentially normal urinary tract Laboratory Tests 03/06 03/05 0650 1125 Coagulation PT Pending INR Pending Hematology CBC w Diff NO MAN DIFF REQ WBC (4.8 - 10.8 /CUMM) 10.1 RBC (4.20 - 5.40 /CUMM) 4.53 Hgb (12.0 - 16.0 G/DL) 13.5 Hct (37 - 47 %) 41.0 MCV (81.0 - 99.0 FL) 90.4 MCH (27.0 - 31.0 PG) 29.8 RDW (11.5 - 14.5 %) 16.8 H Plt Count (130 - 400 /CUMM) 150 MPV (7.4 - 10.4 FL) 8.4 Gran % (42.2 - 75.2 %) 66.6 Lymphocytes % (20.5 - 51.1 %) 25.2 Monocytes % (1.7 - 9.3 %) 7.7 Eosinophils % (0 - 5 %) 0.1 Basophils % (0.0 - 2.0 %) 0.4 Absolute Granulocytes (1.4 - 6.5 /CUMM) 6.7 H Absolute Lymphocytes (1.2 - 3.4 /CUMM) 2.5 Absolute Monocytes (0.10 - 0.60 /CUMM) 0.8 H Absolute Eosinophils (0.0 - 0.7 /CUMM) 0 Absolute Basophils (0.0 - 0.2 /CUMM) 0 PUBS MCHC (33.0 - 37.0 G/DL) 33.0 01/08 1010 Urines Urine Color (YEL,AMB,STR) YEL Urine Clarity (CLEAR) HAZY H Urine pH (5.0 - 8.0) 6.0 Ur Specific [place] (1.001 - 1.035) 1.025 Urine Protein (NEG,<30 MG/DL) 100 H Urine Ketones (NEG) NEG Urine Nitrite (NEG) NEG Urine Bilirubin (NEG) NEG Urine Urobilinogen (0.1 - 1.0 EU/dl) 0.2 Ur Leukocyte Esterase (NEG) TRACE H Ur Microscopic SEDIMENT EXAMINED Urine RBC (0 - 5 /HPF) PACKD H Urine WBC (0 - 2 /HPF) RARE Ur Epithelial Cells (NONE,FEW) RARE Urine Crystals RARE CA OX Urine Hemoglobin (NEG) LARGE H Urine Glucose (N MG/DL) NEG Assessment/Plan Assessment/Plan Imp: Neurogenic bladder urinary retention hx of cystocele Gross hematuria, ? infection related Plan: Leave pathak for now f/u urine C&S Conservative management for hematuria as it appears to be resolving. Will need outpatient cystoscopy
--- NOTE | 2016-03-06 07:38 | PN- Housestaff ---
[place] [facility] 03/06/16 0738: Subjective Follow-up For: MS exacerbation weakness urinary retention Subjective: Patient seen and examined this morning. She was lying in bed in no acute distress. hematuria resolving, berenice colored urine in Pathak bag. We'll continue to monitor, UA did not show, otherwise patient has been stable, within normal limits vitals, continued to have weakness in her lower left extremities bilaterally Review of Systems Constitutional: Denies: chills, fever. Cardiovascular: Denies: chest pain, palpitations. Respiratory: Denies: cough, short of breath. Gastrointestinal: Reports: see HPI, abdominal pain. Denies: nausea, vomiting. Genitourinary: Reports: see HPI. Objective Last 24 Hrs of Vital Signs/I&O Vital Signs Date Time Temp Pulse Resp B/P Pulse O2 O2 Flow FiO2 Ox Delivery Rate 03/06 1138 95 Nasal 2.5L Cannula 03/06 1104 98.2 80 20 146/82 03/06 0827 98.2 80 20 146/82 97 Nasal 2.0L Cannula 03/06 0800 95 Nasal 2.0L Cannula 03/06 0000 96 Nasal 2.0L Cannula 03/05 2358 98.1 81 20 150/72 96 Nasal 2.0L Cannula 03/05 1901 95 Nasal 2.5L Cannula 03/05 1830 97.6 97 20 148/70 97 Nasal 2.5L Cannula 03/05 1600 Nasal 2.5L Cannula 03/05 1546 98.1 82 20 120/64 96 Nasal 2.5L Cannula Intake & Output 03/06 1600 03/06 0800 03/06 0000 Intake Total 200 200 Output Total 750 400 Balance -550 -200 Intake, Oral 200 200 Output, Urine 750 400 Physical Exam General Appearance: Alert, Oriented X3, Cooperative, No Acute Distress Cardiovascular: Regular Rate, Normal S1, Normal S2 Lungs: Clear to Auscultation, Normal Air Movement Abdomen: Normal Bowel Sounds, Soft, No Tenderness Extremities: No Clubbing, No Cyanosis, b/l ankle ?lipomas Current Medications: Current Medications Sig/Blanka Start time Last Medication Dose Route Stop Time Status Admin Acetaminophen 650 MG Q6-PRN PRN 03/02 0045 AC PO Albuterol Sulfate 3 ML Q4P PRN 03/02 1400 AC 03/05 INH 1859 Atorvastatin Calcium 40 MG DAILY@1700 03/02 1700 AC 03/05 PO 1625 Baclofen 10 MG BID 03/01 2200 AC 03/06 PO 1003 Budesonide/ 2 PUF BID 03/02 1000 AC 03/06 Formoterol Fumarate INH 1003 Diazepam 5 MG TID PRN 03/01 1845 AC 03/06 PO 1207 Duloxetine HCl 40 MG DAILY 03/02 1000 AC 03/06 PO 1003 Gabapentin 100 MG TID 03/01 2200 AC 03/06 PO 1003 Hydromorphone HCl 1 MG Q8P PRN 03/05 1015 DC 03/06 IV 0757 Hydromorphone HCl 4 MG Q4P PRN 03/01 1845 AC 03/06 PO 1207 Insulin Aspart 0 TIDAC 03/05 1200 AC SC Meclizine HCl 25 MG TID PRN 03/01 1845 AC 03/05 PO 0913 Patient Medication 1 ED .STK-MED ONE 03/06 1350 DC Teaching ED 03/06 1351 Pramipexole 1 MG AT BEDTIME 03/02 2200 AC 03/05 Dihydrochloride PO 2223 Tiotropium [place] 1 PUF DAILY 03/02 1000 AC 03/06 INH 1003 Travoprost 1 GTT AT BEDTIME 03/01 2200 AC OPH Last 24 Hrs of Lab/Abraham Results Last 24 Hrs of Labs/Mics: Laboratory Tests 03/06/16 0650: PT 31.2 H, INR 3.00 H Microbiology 03/06 0740 URINE ROUT: Urine Culture - RECD Assessment/Plan Assessment: 60 yo F with PMH of Lupus, MS, Bechet's dx, antiphospholid syndrome, PE on coumadin. Here with complaint of urinary retention for about 1 week. Hx of large rectocele and cystocele. Assessment 1. MS exacerbation 2. Urinary Retention 2/2 rectocele and cystocele r/o UTI MS exacerbation: IV solumedrol (completed 3 days) Neuro Consult, waiting for recommendation Urinary Retention 2/2 rectocele and cystocele: Urology has recommended to leave pathak for now and follow-up f/u in our office with Dr Estefania Burk or other evaluation. Bloodstained urine seen in the Pathak bag yesterday,resolving today, likely traumatic, UA no evidence of infection, will follow culture. Surgical consult for lumps on her ankle as an outpatient, she'll be given a referral PT/OT Pain Mgt and stool softeners On Coumadin-check INR in am and dose coumadin as needed, holding coumadin today Alps Problem List: 1. Urinary retention 2. Multiple sclerosis exacerbation Pain Ratin Pain Location: supra pubic area Pain Goal: Remain pain free Pain Plan: dilaudid Tomorrow's Labs & Rationales: none patient to be discharge Consulting Request: Consulting Specialty: Urology DARVIN BOURGEOIS MD 03/06/16 1201: Attending MD Review Statement Attending Statement Attending MD Statement: examined this patient, discuss w/resident/PA/PLANT MAINTENANCE TECHNICIAN, agreed w/resident/PA/PLANT MAINTENANCE TECHNICIAN, reviewed EMR data (avail), discussed with nursing, discussed with case mgmt, amended to note Attending Assessment/Plan: Patient seen and examined. Resting comfortably and not in acute distress. He was very anxious over the weekend due to an episode of hematuria. This has since resolved. I hemoglobin level is stable. Case was discussed with the neurology service and recommendations are to continue conservative management. Pathak catheter will remain in place and she'll follow-up as an outpatient. Patient is pleased with this plan. She continues to report lower extremity weakness but looks forward to continue physical therapy at the [facility] facility. She is medically stable for discharge today.
[2016-03-06 08:15] LABS: PT 31.2 SEC (9.4-12.5)
[2016-03-06 08:27] VITALS: BP 146/82
[2016-03-06 11:04] VITALS: BP 146/82
[2016-03-06 16:45] VITALS: BP 148/80
== END 2016-03-06 17:08 | DRG 59 ==
LOC: ERH 11:12 → ERHI 14:35 → 2NB 14:35
PROVIDERS: Emergency Medicine; Internal Medicine; Student in an Organized Health Care Education/Training Program; ADMIT Internal Medicine
DX: G35 Multiple sclerosis (principal); R31.9 Hematuria, unspecified; D68.61 Antiphospholipid syndrome; R33.8 Other retention of urine; I25.10 Atherosclerotic heart disease of native coronary artery without angina pectoris; I10 Essential (primary) hypertension; E11.9 Type 2 diabetes mellitus without complications; J44.9 Chronic obstructive pulmonary disease, unspecified; J45.909 Unspecified asthma, uncomplicated; N31.9 Neuromuscular dysfunction of bladder, unspecified; Z79.01 Long term (current) use of anticoagulants; N81.10 Cystocele, unspecified; N81.6 Rectocele; F17.210 Nicotine dependence, cigarettes, uncomplicated; Z86.711 Personal history of pulmonary embolism
CPT/HCPCS: 36415; 74177; 81001; 81003; 82436; 87040; 87086; 93005; 93010; 96365; 96366; 96375; 97001-GP; 97003-GO; 97110-GO; 97116-GO; 97162-GP; 97165-GO; 97530-GO; J1040; J1170; J3490; J7060

== ENCOUNTER 2016-03-16 11:23 | Emergency (ER) | payer OTHER ==
[~2016-03-16] VITALS: Ht 152.4 cm; Wt 99.8 kg
[~2016-03-16 11:23] MED LIST: ADVAIR 250-501 EACH INH; ALBUTEROL2.5 MG/3 M INH/SOL; ATORVASTATIN CA40 M1 PO; BACLOFEN10 M1 PO; COLACE100 M1 PO; COUMADIN3 M1 PO; DIAZEPAM5 M1 PO; DULOXETINE HCL40 MG PO; GABAPENTIN300 M2 PO; HYDROMORPHONE HC4 M1 PO; MECLIZINE HCL25 MG PO; METOPROLOL SUCC25 M1 PO; METOPROLOL SUCC50 M2 PO; MIRALAX17 G1 PO; PRAMIPEXOLE DIHY1 MG PO; SPIRIVA18 MCG INH; TRAVATAN Z5 ML OPH; VITAMIN D250000 UNIT PO; ZOFRAN ODT4 M1 PO
--- NOTE | 2016-03-16 12:16 | ED GENERAL ADULT ---
History of Present Illness General Chief Complaint: General Adult Stated Complaint: UTI? Source: patient, family, old records Exam Limitations: no limitations Vital Signs & Intake/Output Vital Signs & Intake/Output Vital Signs Date Time Temp Pulse Resp B/P Pulse O2 O2 Flow FiO2 Ox Delivery Rate 03/16 1405 98 Room Air 03/16 1405 98.2 62 18 109/67 98 Room Air 03/16 1132 98.0 82 20 123/79 98 Room Air Allergies Coded Allergies: metoclopramide (From REGLAN) (Severe, 03/01/16) Sulfa (Sulfonamide Antibiotics) (SWELLING 03/01/16) Uncoded Allergies: FRESH FROZEN PLASMA (Mild, HIVES 03/01/16) Reconcile Medications Albuterol Sulfate 2.5 MG/3 ML (0.083 %) VIAL.NEB 1 Vial INH/ARLETTE Q6-PRN PRN WHEEZING (Reported) Atorvastatin Calcium 40 MG TABLET 1 TAB PO DAILY CHOLESTEROL (Reported) Baclofen 10 MG TABLET 1 TAB PO BID MUSCLE (Reported) Diazepam 5 MG TABLET 1 TAB PO TIDPRN PRN ANXIETY (Reported) Docusate Sodium (Colace) 100 MG CAPSULE 1 CAP PO BID PRN constipation Duloxetine HCl 40 MG CAPSULE.DR 1 CAP PO DAILY MENTAL HEALTH (Reported) Ergocalciferol (Vitamin D2) (Vitamin D2) 50,000 UNIT CAPSULE 1 CAP PO QMON SUPPLEMENT (Reported) Fluticasone/Salmeterol (Advair 250-50 Diskus) 250 MCG-50 MCG/DOSE BLST.W.DEV 1 PUF INH BID BREATHING PROBLEMS (Reported) Gabapentin 100 MG CAPSULE 1 CAP PO TID PAIN (Reported) Hydromorphone HCl 4 MG TABLET 1 TAB PO Q4 HRS NEEDED PRN PAIN (Reported) Meclizine HCl 25 MG TABLET 1 TAB PO Q8P PRN DIZZINESS (Reported) Metoprolol Succinate 25 MG TAB 1 TAB PO DAILY heart health Ondansetron (Zofran Odt) 4 MG TAB.RAPDIS 1 TAB PO Q6-PRN PRN NAUSEA/VOMITING (Reported) Polyethylene Glycol 3350 (Miralax) 17 GRAM POWD.PACK 1 PAC PO DAILY constipation dissolve in water Pramipexole Di-HCl (Pramipexole Dihydrochloride) 1 MG TABLET 1 TAB PO DAILY RESTLESS LEGS (Reported) Tiotropium [place] (Spiriva) 18 MCG CAP.W.DEV 1 CAP INH DAILY BREATHING PROBLEMS (Reported) Travoprost (Travatan Z) 0.004 % DROPS 1 GTT OPH QPM EYE (Reported) Warfarin Sodium (Coumadin) 3 MG TABLET 1 TAB PO 1700 BLOOD THINNER (Reported) Triage Note: PT WAS SEEN HERE RECENTLY FOR MS EXACERBATION AND WAS FOUND TO HAVE A UTI AND SENT TO [facility]. PT STATES SHE SIGNED HERSELF OUT THERE. STATES SHE HAS A CYSTOCELE, RECTOCELE AND HER PELVIC FLOOR HAS DROPPED , SAW A [id number] HERE WHILE SHE WAS HERE AND TOLD SHE NEEDS SURGERY. PT STATES SHE IS IN A LOT OF PAIN. WASN'T ON ANTIBIOTICS WHILE AT [facility] Triage Nurses Notes Reviewed? yes HPI: Patient presents complaining of diffuse body pain myalgias and chills. Patient states that she suffers from lupus as well as multiple sclerosis. Patient was at short-term rehabilitation but ended up signing out AGAINST MEDICAL ADVICE on Sunday night. Patient states that she was diagnosed with a UTI on Sunday and she got her first dose of antibiotics on Sunday evening but then they refused to give her any antibiotics, home with. Patient states that she never runs a fever secondary to her lupus however she is currently feeling very much like she did prior to going septic in the summer. Patient denies any chest pain. There is no shortness of breath. Patient has an indwelling Spears but she states that she feels that the balloon is inflated in the urethra. Patient states that she has multiple urological problems and is following up with urology for potential surgery. Patient states that every time she moves her bowels she feels the balloon sliding around. Currently her pain is 8 out of 10 and is constant. There is no radiation. Patient has been attempting to stretch out her oral pain medications. There are no aggravating or mitigating factors. The pain is cramping in nature. ([facility]OB[facility],LEE ANN Johnson) Past History Travel History Traveled to [place] past 21 day No Medical History Any Pertinent Medical History? see below for history Neurological: multiple sclerosis Cardiovascular: CAD, hypertension, DVT Respiratory: asthma, COPD Endocrine: diabetes, LUPUS History of MRSA: No History of VRE: No History of CDIFF: No Influenza Vaccine: 03/07/15 Surgical History Surgical History: non-contributory Psychosocial History Who do you live with Spouse Services at Home Nursing What is your primary language German Tobacco Use: Current Daily Use Daily Tobacco Use Amount/Type: => 5 Cigarettes daily ETOH Use: denies use Illicit Drug Use: denies illicit drug use Family History Family History, If Any: SISTER Relation not specified for: FH: multiple sclerosis Hx Contributory? No (ROBERT [facility],LEE ANN Johnson) Review of Systems Review of Systems Constitutional: Reports: see HPI, chills, weakness. EENTM: Reports: no symptoms. Respiratory: Reports: no symptoms. Cardiovascular: Reports: no symptoms. GI: Reports: no symptoms. Genitourinary: Reports: see HPI. Musculoskeletal: Reports: see HPI, muscle pain. Skin: Reports: no symptoms. Neurological/Psychological: Reports: no symptoms. Hematologic/Endocrine: Reports: no symptoms. Immunologic/Allergic: Reports: no symptoms. All Other Systems: Reviewed and Negative (ROBERT [facility],LEE ANN Johnson) Physical Exam Physical Exam General Appearance: well developed/nourished, alert, awake, moderate distress Head: atraumatic Eyes: Bilateral: PERRL, EOMI. Ears, Nose, Throat: normal pharynx, normal ENT inspection, hearing grossly normal Neck: normal inspection, supple, full range of motion Respiratory: normal breath sounds, chest non-tender, no respiratory distress, lungs clear Cardiovascular: regular rate/rhythm, normal peripheral pulses Gastrointestinal: normal bowel sounds, soft, non-tender Back: normal inspection, normal range of motion Extremities: normal inspection, normal capillary refill, no edema Neurologic/Psych: no motor/sensory deficits, awake, alert, oriented x 3, normal mood/affect Skin: intact, normal color, warm/dry Lymphatic: no anterior cervical marquita Core Measures ACS in differential dx? No CVA/TIA Diagnosis: No Severe Sepsis Present: No Septic Shock Present: No (ROBERT [facility],LEE ANN Johnson) Progress Differential Diagnoses I considered the following diagnoses in my evaluation of the patient: [Urosepsis , sepsis, UTI, pneumonia, electrolyte abnormality] Plan of Care: Orders Procedure Date/time Status BLOOD CULTURE 03/16 1329 Active CULTURE,URINE 03/16 1217 Active BLOOD CULTURE 03/16 1217 Active COMPREHENSIVE METABOLIC PANEL 03/16 1217 Complete CBC WITHOUT DIFFERENTIAL 03/16 1217 Complete URINALYSIS 03/16 1151 Complete Current Medications Sig/Blanka Start time Last Medication Dose Stop Time Status Admin Hydromorphone HCl 4 MG ONCE ONE 03/16 1630 UNVr (Dilaudid) 03/16 1631 Ondansetron HCl 4 MG ONCE ONE 03/16 1630 UNVr (Zofran) 03/16 1631 Laboratory Tests 03/16/16 1442: Urine Color YEL, Urine Clarity HAZY H, Urine pH 6.0, Ur Specific [place] 1.020, Urine Protein 30 H, Urine Ketones NEG, Urine Nitrite NEG, Urine Bilirubin NEG, Urine Urobilinogen 0.2, Ur Leukocyte Esterase MOD H, Ur Microscopic SEDIMENT EXAMINED, Urine RBC 10-15 H, Urine WBC 1-3 H, Ur Epithelial Cells FEW, Urine Hemoglobin LARGE H, Urine Glucose NEG 03/16/16 1320: Anion Gap 12, Estimated GFR > 60, BUN/Creatinine Ratio 17.1, Glucose 101 H, Calcium 8.9, Total Bilirubin 0.8, AST 26, ALT 38, Alkaline Phosphatase 67, Total Protein 6.7, Albumin 3.8, Globulin 2.9, Albumin/Globulin Ratio 1.3, CBC w Diff NO MAN DIFF REQ, RBC 4.49, MCV 89.6, MCH 29.9, RDW 16.1 H, MPV 8.3, Gran % 75.3 H, Lymphocytes % 17.7 L, Monocytes % 5.6, Eosinophils % 1.0, Basophils % 0.4, Absolute Granulocytes 6.2, Absolute Lymphocytes 1.4, Absolute Monocytes 0.5, Absolute Eosinophils 0.1, Absolute Basophils 0, PUBS MCHC 33.4 Microbiology 03/16 1414 BLOOD: Blood Culture - RECD 03/16 1320 BLOOD: Blood Culture - RECD 03/16 1217 URINE ROUT: Urine Culture - ORD 03/16 1217 BLOOD: Blood Culture - CAN Cancelled: Cancelled via OE: VENOUS COLLECTION Initial ED EKG: none Hand-Off Endorsed To: TISH GREWAL MD Endorsed Time: 1436 Pending: labs (ROBERT [facility],LEE ANN Johnson) Departure Departure Condition: Stable Clinical Impression Primary Impression: UTI (urinary tract infection) Referrals: UNKNOWN (PCP/Family) Departure Forms: Customer Survey General Discharge Information (LEE ANN JONES MD) Departure Time of Disposition: 1629 Disposition: HOME OR SELF CARE Additional Instructions: CONTINUE YOUR ANTIBIOTIC AND FOLLOW UP WITH YOUR DOCTOR. RETURN NEEDED. (TISH GREWAL MD) Critical Care Note Critical Care Note Critical Care Time: non-applicable (ROBERT [facility]LE[facility],LEE ANN Johnson)
[2016-03-16 13:32] LABS: ABSOLUTE BASOPHIL COUNT 0 /CUMM (0.0-0.2); ABSOLUTE EOSINOPHIL COUNT 0.1 /CUMM (0.0-0.7); ABSOLUTE GRANULOCYTE CT 6.2 /CUMM (1.4-6.5); ABSOLUTE LYMPH COUNT 1.4 /CUMM (1.2-3.4); ABSOLUTE MONOCYTE COUNT 0.5 /CUMM (0.10-0.60); BASOPHIL % 0.4 % (0.0-2.0); GRANULOCYTE % 75.3 % (42.2-75.2); HEMATOCRIT 40.2 % (37-47); MEAN CORPUSCULAR HGB 29.9 PG (27.0-31.0); MEAN CORPUSCULAR HGB CONC 33.4 G/DL (33.0-37.0); MEAN CORPUSCULAR VOLUME 89.6 FL (81.0-99.0); MEAN PLATELET VOLUME 8.3 FL (7.4-10.4); PLATELET COUNT 179 /CUMM (130-400); RBC DISTRIBUTION WIDTH 16.1 % (11.5-14.5); RED BLOOD CELL CT 4.49 /CUMM (4.20-5.40); WHITE BLOOD CELL COUNT 8.2 /CUMM (4.8-10.8)
[2016-03-16 16:32] VITALS: BP 105/58
[2016-03-16] MEDS ORDERED: MACROBID 100 M100 MG PO (16:58)
== END 2016-03-16 17:01 ==
LOC: ERH 11:23
PROVIDERS: Emergency Medicine
DX: N39.0 Urinary tract infection, site not specified (principal); E11.9 Type 2 diabetes mellitus without complications; I10 Essential (primary) hypertension; G35 Multiple sclerosis
CPT/HCPCS: 81001; 87040; 87086; 87147; 96374; J3101

== ENCOUNTER 2016-03-20 11:35 | Observation (INO) | payer OTHER ==
[~2016-03-20] VITALS: Ht 162.6 cm; Wt 97.5 kg
[~2016-03-20 11:35] MED LIST changes: +MACROBID 100 M100 MG PO
--- NOTE | 2016-03-20 11:44 | NUR ---
PT WAS SEEN HERE SUNDAY DUE TO ABD /VAGINAL PAIN FROM HER CÁRDENAS CATHETER, CATH WAS REPOSITIONED ON AND BAG STARTED TO DRAIN, PT WAS SENT HOME AND WAS TO FOLLOW UP WITH DR JANE, PT WENT HOME ON ABT , STATES THAT AFTER THE PAIN MEDS WORE OFF SHE WAS IN 10/10 PAIN ALL WEEKEND AND STATES THAT SHE "CAN'T TAKE THE PAIN ANYMORE". PT ALSO STATES THAT SHE JUST WANTS TO THE PAIN IS SO BAD. WHEN QUESTIONED ABOUT SI THOUGHTS AT THIS TIME SHE DENIES. " BUT STATES THAT IF THEY CAN'T HELP ME I WILL HARM MYSELF"PT COMPLAINS OF NO URINE IN LEG BAG AT THIS TIME, STATES THAT SHE EMPTIED IT AT 0830 BUT THAT SHE NOTED A LOT OF RED BLOOD CLOTS.
--- NOTE | 2016-03-20 11:55 | NUR ---
ASSITED PATIENT INTO A GOWN AND HELPED HER BACK INTO BED.
--- NOTE | 2016-03-20 13:18 | NUR ---
500ML CLEAR YELLOW URINE DRAINED FROM LEG BAG, ONE SMALL CLOT NOTED, URINE DRAINING FREE WITHOUT DIFFICULTY OR PAIN AT THIS TIME. STUDENT PA IN TO EVAL AT THIS TIME.
--- NOTE | 2016-03-20 14:21 | NUR ---
BLOODWORK, SST, LAV,BLUE,CROWE AND PINK TOP TUBES SENT TO LAB, MED WITH DILAUDID 1MG IV, WITH GOOD EFFECT.
--- NOTE | 2016-03-20 14:25 | ED GENERAL ADULT ---
History of Present Illness General Chief Complaint: General Adult Stated Complaint: URINARY PROBLEMS Source: patient Exam Limitations: no limitations Vital Signs & Intake/Output Vital Signs & Intake/Output Vital Signs Date Time Temp Pulse Resp B/P Pulse O2 O2 Flow FiO2 Ox Delivery Rate 03/20 1514 73 18 119/62 93 Room Air 03/20 1140 97.6 88 16 116/79 96 Room Air Allergies Coded Allergies: metoclopramide (From REGLAN) (Severe, 03/01/16) Sulfa (Sulfonamide Antibiotics) (SWELLING 03/01/16) Uncoded Allergies: FRESH FROZEN PLASMA (Mild, HIVES 03/01/16) Reconcile Medications Albuterol Sulfate 2.5 MG/3 ML (0.083 %) VIAL.NEB 1 Vial INH/ARLETTE Q6-PRN PRN WHEEZING (Reported) Atorvastatin Calcium 40 MG TABLET 1 TAB PO DAILY CHOLESTEROL (Reported) Baclofen 10 MG TABLET 1 TAB PO BID MUSCLE (Reported) Diazepam 5 MG TABLET 1 TAB PO TIDPRN PRN ANXIETY (Reported) Docusate Sodium (Colace) 100 MG CAPSULE 1 CAP PO BID PRN constipation Duloxetine HCl 40 MG CAPSULE.DR 1 CAP PO DAILY MENTAL HEALTH (Reported) Ergocalciferol (Vitamin D2) (Vitamin D2) 50,000 UNIT CAPSULE 1 CAP PO QMON SUPPLEMENT (Reported) Fluticasone/Salmeterol (Advair 250-50 Diskus) 250 MCG-50 MCG/DOSE BLST.W.DEV 1 PUF INH BID BREATHING PROBLEMS (Reported) Gabapentin 100 MG CAPSULE 1 CAP PO TID PAIN (Reported) Hydromorphone HCl 4 MG TABLET 1 TAB PO Q4 HRS NEEDED PRN PAIN (Reported) Meclizine HCl 25 MG TABLET 1 TAB PO Q8P PRN DIZZINESS (Reported) Metoprolol Succinate 25 MG TAB 1 TAB PO DAILY heart health Nitrofurantoin Monohyd/M-Cryst (Macrobid 100 MG Capsule) 100 MG CAPSULE 1 CAP PO BID UTI with food Ondansetron (Zofran Odt) 4 MG TAB.RAPDIS 1 TAB PO Q6-PRN PRN NAUSEA/VOMITING (Reported) Polyethylene Glycol 3350 (Miralax) 17 GRAM POWD.PACK 1 PAC PO DAILY constipation dissolve in water Pramipexole Di-HCl (Pramipexole Dihydrochloride) 1 MG TABLET 1 TAB PO DAILY RESTLESS LEGS (Reported) Tiotropium [place] (Spiriva) 18 MCG CAP.W.DEV 1 CAP INH DAILY BREATHING PROBLEMS (Reported) Travoprost (Travatan Z) 0.004 % DROPS 1 GTT OPH QPM EYE (Reported) Warfarin Sodium (Coumadin) 3 MG TABLET 1 TAB PO 1700 BLOOD THINNER (Reported) Triage Note: PT WAS SEEN HERE SUNDAY DUE TO ABD /VAGINAL PAIN FROM HER CÁRDENAS CATHETER, CATH WAS REPOSITIONED ON AND BAG STARTED TO DRAIN, PT WAS SENT HOME AND WAS TO FOLLOW UP WITH DR JANE, PT WENT HOME ON ABT , STATES THAT AFTER THE PAIN MEDS WORE OFF SHE WAS IN 10/10 PAIN ALL WEEKEND AND STATES THAT SHE "CAN'T TAKE THE PAIN ANYMORE". PT ALSO STATES THAT SHE JUST WANTS TO THE PAIN IS SO BAD. WHEN QUESTIONED ABOUT SI THOUGHTS AT THIS TIME SHE DENIES. " BUT STATES THAT IF THEY CAN'T HELP ME I WILL HARM MYSELF" Triage Nurses Notes Reviewed? yes Onset: Abrupt Duration: week(s):, constant, getting worse Timing: recent history Injury Environment: home Severity: moderate, severe No Modifying Factors: none HPI: 60-year-old female comes into emergency room for further evaluation of generalized pain. Patient has a history of MS lupus. Patient is able to walk normally sometimes but has had increased weakness from her MS and is unable to walk recently. Patient has been experiencing severe pain from her cystocele and rectocele. Patient reports that over this past weekend she contemplating killing herself taking a bunch of pills secondary to the pain. Patient reports that she did not do it because she has grandchildren that live in the same house. Patient has been feeling depressed. Patient wants to talk with her urologist about doing surgery because she can't deal with the pain anymore. Denies any fever or chills. Denies any vomiting. (LEAH PÉREZ) Past History Travel History Traveled to [place] past 21 day No Medical History Any Pertinent Medical History? 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 No (LEAH PÉREZ) Review of Systems Review of Systems Constitutional: Reports: no symptoms. EENTM: Reports: no symptoms. Respiratory: Reports: no symptoms. Cardiovascular: Reports: no symptoms. GI: Reports: no symptoms. Genitourinary: Reports: see HPI. Musculoskeletal: Reports: see HPI. Skin: Reports: no symptoms. Neurological/Psychological: Reports: no symptoms. Hematologic/Endocrine: Reports: no symptoms. Immunologic/Allergic: Reports: no symptoms. All Other Systems: Reviewed and Negative (LEAH PÉREZ) Physical Exam Physical Exam General Appearance: well developed/nourished, no apparent distress, alert Head: atraumatic, normal appearance Eyes: Bilateral: normal appearance, EOMI. Ears, Nose, Throat: normal pharynx, normal ENT inspection Neck: normal inspection, full range of motion Respiratory: normal breath sounds, no respiratory distress Cardiovascular: regular rate/rhythm Gastrointestinal: normal bowel sounds Back: normal inspection Extremities: normal inspection, normal range of motion Neurologic/Psych: awake, alert, oriented x 3 Skin: intact, normal color Core Measures ACS in differential dx? No CVA/TIA Diagnosis: No Severe Sepsis Present: No Septic Shock Present: No (LEAH PÉREZ) Progress Differential Diagnoses I considered the following diagnoses in my evaluation of the patient: UTI, cellulitis, depression, anxiety, chronic pain, sepsis, Plan of Care: Orders Procedure Date/time Status Consistent Carbohydrate 1 03/21 B Active Misc Message 03/20 1641 Active ED Holding Orders 03/20 1641 Active Vital Signs 03/20 1641 Active Code Status 03/20 1641 Active Patient Data 03/[address] in observation 03/20 1606 Active URINALYSIS 03/20 1424 Complete COMPREHENSIVE METABOLIC PANEL 03/20 1335 Complete CBC WITHOUT DIFFERENTIAL 03/20 1335 Complete EKG 03/20 1335 Active Laboratory Tests 03/20/16 1420: Urine Color YEL, Urine Clarity CLEAR, Urine pH 6.0, Ur Specific [place] 1.010, Urine Protein NEG, Urine Ketones NEG, Urine Nitrite NEG, Urine Bilirubin NEG, Urine Urobilinogen 0.2, Ur Leukocyte Esterase TRACE H, Ur Microscopic SEDIMENT EXAMINED, Urine RBC RARE, Urine WBC RARE, Urine Hemoglobin SMALL H, Urine Glucose NEG 03/20/16 1415: Anion Gap 11, Estimated GFR > 60, BUN/Creatinine Ratio 21.7, Glucose 105 H, Calcium 9.2, Total Bilirubin 0.5, AST 24, ALT 37, Alkaline Phosphatase 74, Total Protein 6.6, Albumin 3.8, Globulin 2.8, Albumin/Globulin Ratio 1.4, CBC w Diff NO MAN DIFF REQ, RBC 4.57, MCV 89.7, MCH 30.3, RDW 16.1 H, MPV 7.9, Gran % 64.5 , Lymphocytes % 27.3, Monocytes % 5.9, Eosinophils % 1.8, Basophils % 0.5, Absolute Granulocytes 5.2, Absolute Lymphocytes 2.2, Absolute Monocytes 0.5, Absolute Eosinophils 0.1, Absolute Basophils 0, PUBS MCHC 33.7 Initial ED EKG: normal intervals, normal p-waves, normal sinus rhythm, rate (67) (LEAH PÉREZ) Departure Departure Disposition: STILL A PATIENT Condition: Stable Clinical Impression Primary Impression: Multiple sclerosis Secondary Impressions: Depression, Intractable pain Referrals: UNKNOWN (PCP/Family) Departure Forms: Customer Survey General Discharge Information Observation Note Spoke With: NATALEE MIDDLETON,JAMESON Benavidez Physician Advisor Notified: GABRIEL MIDDLETON,SAMIR Johnson Place Patient In: Non-ED OBS Care Area Rationale for Observation: My rational for observation is as follows . Patient will require physical therapy consultation. MS consultation. Pain consultation. Patient will require IV pain control. Possibly IV steroids. Patient will require psych consult for depression and suicidal ideation but currently has no suicidal thoughts.. Patient has failed outpatient treatment. Patient will also require a urology consultation for her chronic Cárdenas catheter issues. (DR DERAS). (LEAH PÉREZ) PA/HOLDER PILE DRIVING Co-Sign Statement Statement: ED Attending supervision documentation- [] I saw and evaluated the patient. I have also reviewed all the pertinent lab results and diagnostic results. I agree with the findings and the plan of care as documented in the PA's/HOLDER PILE [employer]IV[employer]'s documentation. [X] I have reviewed the ED Record and agree with the PA's/HOL[employer]LE [employer]IV[employer]'s documentation. [] Additions or exceptions (if any) to the PAs/HOLDER [employer]LE [employer]IVING's note and plan are summarized below: [] (AVNI MIDDLETON,KRISTIN Barrios) Critical Care Note Critical Care Note Critical Care Time: non-applicable (LEAH PÉREZ)
--- NOTE | 2016-03-20 14:28 | NUR ---
URINE TRIO SENT TO LAB. REMAINS AT BEDSIDE, PT STATING PAIN IS 5/10 AT THIS TIME.
[2016-03-20 14:31] LABS: ABSOLUTE BASOPHIL COUNT 0 /CUMM (0.0-0.2); ABSOLUTE EOSINOPHIL COUNT 0.1 /CUMM (0.0-0.7); ABSOLUTE GRANULOCYTE CT 5.2 /CUMM (1.4-6.5); ABSOLUTE LYMPH COUNT 2.2 /CUMM (1.2-3.4); ABSOLUTE MONOCYTE COUNT 0.5 /CUMM (0.10-0.60); BASOPHIL % 0.5 % (0.0-2.0); EOSINOPHIL % 1.8 % (0-5); GRANULOCYTE % 64.5 % (42.2-75.2); MEAN CORPUSCULAR HGB 30.3 PG (27.0-31.0); MEAN CORPUSCULAR HGB CONC 33.7 G/DL (33.0-37.0); MEAN CORPUSCULAR VOLUME 89.7 FL (81.0-99.0); MEAN PLATELET VOLUME 7.9 FL (7.4-10.4); PLATELET COUNT 209 /CUMM (130-400); RBC DISTRIBUTION WIDTH 16.1 % (11.5-14.5); RED BLOOD CELL CT 4.57 /CUMM (4.20-5.40); WHITE BLOOD CELL COUNT 8.1 /CUMM (4.8-10.8)
--- NOTE | 2016-03-20 15:49 | NUR ---
ASSUMED CARE OF PT. PT STATES PAIN IS AT A 5 OUT OF 10. STATES DILAUDID HELPED BUT PAIN IS COMING BACK. ASKING FOR MORE PAIN MEDICINE. GIVEN SECOND DOSE OF DILUADID.
--- NOTE | 2016-03-20 15:50 | NUR ---
CÁRDENAS LEG BAG WITH CLEAR URINE OUTPUT IN BAG
--- NOTE | 2016-03-20 16:54 | NUR ---
PT MOVED TO [facility]
--- NOTE | 2016-03-20 17:28 | NUR ---
PT ADMITTED TO ROOM 210-2
--- NOTE | 2016-03-20 17:35 | NUR ---
REPORT CALLED TO KARRI ON .
--- NOTE | 2016-03-20 17:43 | NUR ---
HOUSE STAFF TO SEE PT
--- NOTE | 2016-03-20 18:02 | NUR ---
PT STATES CÁRDENAS WAS PLACED A WEEK AND HALF AGO
[2016-03-20 18:40] VITALS: BP 100/70
--- NOTE | 2016-03-20 19:34 | RADIOLOGY REPORT ---
EXAMINATION: XR PORTABLE CHEST CLINICAL INFORMATION: Cough and sputum production. Evaluate for pneumonia. COMPARISON: Chest x-ray 11/18/2015. TECHNIQUE: Portable view of the chest was obtained. FINDINGS: The lungs are hypoinflated but otherwise clear without focal airspace consolidation. No pleural effusions or pneumothoraces are identified. Cardiomediastinal contours are within normal limits. Soft tissues are unremarkable. No acute osseous abnormality is identified. IMPRESSION: Pulmonary hypoinflation. No focal airspace consolidation to suggest infection.
--- NOTE | 2016-03-20 19:53 | NUR ---
NURSING NOTE: PT ARRIVED TO FLOOR VIA STRETCHER AT 1830. PT A&O, VSS CHARTED. PT ON 2L NC AT HOME. SKIN INTACT. PRE-HOSPITAL LEG BAG DRAINING CLEAR YELLOW URINE WHICH WAS CHANGED OVER TO CÁRDENAS BAG FOR BSD. PT COMPUTER IN CASE UNDER TV ALONG WITH PURSE. PT PHONE CHARGING ON PT NIGHT STAND. PT ORIENTED TO ROOM AND CALL HOLLY.
--- NOTE | 2016-03-20 20:15 | PN- Att Addend ---
Attending Addendum Attending Brief Note 60 year old with MS, SLE, antiphospholipid ab syndrome on Coumadin, chronic opiate use, and rectocoele/cystocoele with chronic indwelling Spears here with c/ o severe pain. Pt is very depressed and has passive suicidal ideation (not actively suicidal and no plan). Intractable pain. Treat with IV Dilaudid, psych eval and adjust antidepressants. Need urology input (pt is known to Dr Burk) regarding ? surgical options. Cont her MS meds (Baclofen, Diazepam, Gabapentin and Parmipexole). Keep INR therapeutic and PT eval. I dont think she is actively infected, no fever, no WBC and urine c/s is colonized. Watch off abx for now.
--- NOTE | 2016-03-20 20:20 | History & Physical ---
[facility] 03/20/16 2020: General Information and HPI MD Statement: I have seen and personally examined NISHANT KING and documented this H&P. The patient is a 60 year old F who presented with a patient stated chief complaint of [lower abdominal pain]. Source of Information: patient, old records Exam Limitations: no limitations History of Present Illness: 60 yo F with PMH of Lupus, MS, Bechet's dx, antiphospholid syndrome, PE on coumadin. Here with complaint of lower abdominal pain and low urine output. Patient has been discharged from the [facility] about 3 weeks ago to rehabilitation to [place] the diagnosis of urinary retention and MS exacerbation at that time, with Spears catheter. Patient reported that she still discharged herself from the custodial about 7 days ago, citing inappropriate care. During her stay at home she experienced severe vaginal and rectal pain, low urine output in her urine bag as well. She came to the hospital on last Sunday and the Spears catheter was readjusted(she also had urinary incontinence as well), however patient still feels severe pain to the point that she wanted to "end it all the taking all her pills" yesterday. She has a very severe rectocele and cystocele which she was told in her last admission that it's a very high risk surgery. She was supposed to see Dr. Burk in the upcoming week. However she was told from the ED that her urine culture is positive and she should come to the hospital. She denies any fevers, chills, nausea, vomiting, chest pain, trauma. She is on a high dose of narcotics for pain control. Allergies/Medications Allergies: Coded Allergies: metoclopramide (From REGLAN) (Severe, 03/01/16) Sulfa (Sulfonamide Antibiotics) (SWELLING 03/01/16) Uncoded Allergies: FRESH FROZEN PLASMA (Mild, HIVES 03/01/16) Home Med list Albuterol Sulfate 2.5 MG/3 ML (0.083 %) VIAL.NEB 1 Vial INH/ARLETTE Q6-PRN PRN WHEEZING (Reported) Atorvastatin Calcium 40 MG TABLET 1 TAB PO DAILY CHOLESTEROL (Reported) Baclofen 10 MG TABLET 1 TAB PO BID MUSCLE (Reported) Diazepam 5 MG TABLET 1 TAB PO TIDPRN PRN ANXIETY (Reported) Docusate Sodium (Colace) 100 MG CAPSULE 1 CAP PO BID PRN constipation Duloxetine HCl 40 MG CAPSULE.DR 1 CAP PO DAILY MENTAL HEALTH (Reported) Ergocalciferol (Vitamin D2) (Vitamin D2) 50,000 UNIT CAPSULE 1 CAP PO QMON SUPPLEMENT (Reported) Fluticasone/Salmeterol (Advair 250-50 Diskus) 250 MCG-50 MCG/DOSE BLST.W.DEV 1 PUF INH BID BREATHING PROBLEMS (Reported) Gabapentin 100 MG CAPSULE 1 CAP PO TID PAIN (Reported) Hydromorphone HCl 4 MG TABLET 1 TAB PO Q4 HRS NEEDED PRN PAIN (Reported) Meclizine HCl 25 MG TABLET 1 TAB PO Q8P PRN DIZZINESS (Reported) Metoprolol Succinate 25 MG TAB 1 TAB PO DAILY heart health Nitrofurantoin Monohyd/M-Cryst (Macrobid 100 MG Capsule) 100 MG CAPSULE 1 CAP PO BID UTI with food Ondansetron (Zofran Odt) 4 MG TAB.RAPDIS 1 TAB PO Q6-PRN PRN NAUSEA/VOMITING (Reported) Polyethylene Glycol 3350 (Miralax) 17 GRAM POWD.PACK 1 PAC PO DAILY constipation dissolve in water Pramipexole Di-HCl (Pramipexole Dihydrochloride) 1 MG TABLET 1 TAB PO DAILY RESTLESS LEGS (Reported) Tiotropium [place] (Spiriva) 18 MCG CAP.W.DEV 1 CAP INH DAILY BREATHING PROBLEMS (Reported) Travoprost (Travatan Z) 0.004 % DROPS 1 GTT OPH QPM EYE (Reported) Warfarin Sodium (Coumadin) 3 MG TABLET 1 TAB PO 1700 BLOOD THINNER (Reported) Past History Travel History Traveled to [place] past 21 day No Medical History Blood Transfusion Hx: No Neurological: multiple sclerosis EENT: NONE Cardiovascular: CAD, hypertension, DVT Respiratory: asthma, COPD Gastrointestinal: NONE Hepatic: NONE Renal: NONE Musculoskeletal: NONE Psychiatric: NONE Endocrine: diabetes, LUPUS Blood Disorders: NONE Cancer(s): NONE 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 spouse, child Services at Home: Nursing Smoking Status: Current Everyday Smoker ETOH Use: denies use Illicit Drug Use: denies illicit drug use Functional Ability ADLs Needs Assist: dressing, eating, toileting, bathing. Ambulation: walker IADLs Independent: telephone. Needs Assist: shopping, housework, finances, food prep, transportation, medication admin. Review of Systems Review of Systems Constitutional: Reports: see HPI. Exam & Diagnostic Data Last 24 Hrs of Vital Signs/I&O Vital Signs Date Time Temp Pulse Resp B/P Pulse O2 O2 Flow FiO2 Ox Delivery Rate 03/20 194 94 Room Air 2.0L 03/20 1840 98.1 66 18 100/70 95 03/20 1811 99.9 68 16 128/80 03/20 1738 96.7 88 18 100/68 03/20 1514 73 18 119/62 93 Room Air 03/20 1140 97.6 88 16 116/79 96 Room Air Intake & Output 03/20 1600 03/20 0800 03/20 0000 Intake Total Output Total 400 Balance -400 Output, Urine 400 Patient 215 lb Weight Physical Exam General Appearance Alert, Oriented X3, Cooperative Cardiovascular Regular Rate, Normal S1, Normal S2 Lungs mild basal exp wheez Abdomen Normal Bowel Sounds, Soft, lower abdominal tenderness Neurological Normal Speech, UE 5/5 LE 3/5 Extremities No Edema Diagnostic Data EKG Results NSR, 79, no acute ST-T changes Assessment/Plan Assessment: 60 yo F with PMH of Lupus, MS, Bechet's dx, antiphospholid syndrome, PE on coumadin. Here with complaint of lower abdominal pain and low urine output. Patient has been discharged from the [facility] about 3 weeks ago to rehabilitation to [facility] the diagnosis of urinary retention and MS exacerbation at that time, with Spears catheter. She came to the hospital on last Sunday and the Spears catheter was readjusted( she also had urinary incontinence as well), however patient still feels severe pain to the point that she wanted to "end it all the taking all her pills" yesterday. She has a very severe rectocele and cystocele which she was told in her last admission that it's a very high risk surgery. She was supposed to see Dr. Burk in the upcoming week. However she was told from the ED that her urine culture is positive and she should come to the hospital. She denies any fevers, chills, nausea, vomiting, chest pain, trauma. She is on a high dose of narcotics for pain control. She denies any SI/HI at the moment. Patient does report of cough Vital signs on admission were Stable. CBC, BEP was unremarkable Assessment and plan #Severe pain due to rectocele and cystocele -inpatient obs -Pain management with IV Dilaudid for severe pain, by mouth Dilaudid around-the- clock for moderate pain in combination with diazepam -Continue gabapentin -Urology consult was placed with Dr. Mansfield -no antibiotic for now(and culture is most probably colonization) -Aggressive bowel regimen -IV hydration one bag #Antiphospholipid syndrome with PE on Coumadin -3 mg Coumadin today and check INR tomorrow #Restless leg syndrome, depression,HTN -Psychiatric consult for tomorrow -Continue Lexapro -Continue metoprolol #Chief complaint of cough/COPD -CXR o rule out pneumonia -TR nebs #Xalatan instead of travoprost Full code, DVT prophylaxis mechanical and warfarin, Dilaudid for pain,heart healthy diet As Ranked By This Provider Problem List: 1. Urinary retention 2. Multiple sclerosis exacerbation Core Measures/Miscellaneous Acute Coronary Syndrome ACS Diagnosis: No Cerebrovascular Accident CVA/TIA Diagnosis: No Congestive Heart Failure CHF Diagnosis: No Venous Thromboembolism VTE Risk Factors: Age > 40 VTE Prophylaxis Ordered Inpt: Mech & Pharm No Mech VTE prophylaxis d/t: No contraindications No VTE Pharm Prophylaxis d/t: No contraindications VTE Diagnosis: No VTE Type: NONE VTE Confirmed by (Test): NONE Severe Sepsis Severe Sepsis Present: No Septic Shock Septic Shock Present: No Miscellaneous Documentation Attending Case Discussed With: JAMESON ALBRIGHT MD Primary Care Physician: UNKNOWN Patient sees these Specialists Level of Patient Care: General Medicine JAMESON ALBRIGHT MD 03/21/16 0751: Attending MD Review Statement Attending Statement Attending MD Statement: examined this patient, discuss w/resident/PA/HIGH VOLTAGE ELECTRICIAN, agreed w/resident/PA/HIGH VOLTAGE ELECTRICIAN, reviewed EMR data (avail), discussed with case mgmt Attending Assessment/Plan: See medical brief addendum note dated 03/20/16
--- NOTE | 2016-03-21 00:09 | NUR ---
ALERT AND ORIENTED X 3. VITAL SIGNS STABLE. ON 2L O2 VIA NASAL CANNULA MEDICATION GIVEN FOR PAIN. CÁRDENAS CARE GIVEN. PATIENT RESTING COMFORTABLY AT THIS TIME WILL CONTINUE TO MONITOR
[2016-03-21 00:47] VITALS: BP 101/56
--- NOTE | 2016-03-21 07:29 | PN- Housestaff ---
Subjective Follow-up For: Lower abdominal pain Subjective: Patient seen and examined. She is seen lying flat in bed appearing anxious and uncomfortable. She reports that her lower abdominal/pelvic/rectal pain is 9-10/ 10 and causing her severe amount of distress. She reports seeing multiple specialists all of which have declined "surgery" for her because she is "too high risk". She states that this is caused her a great amount of "depression" which is different for her because despite her multiple medical problems including multiple sclerosis she is quite happy. She reports that pain at 4-5/ 10 is something she can tolerate and live with, but persistent 8-10/10 pain is something she cannot endure. She reports having suicidal thoughts this past weekend where she was contemplating taking "all her medications". She states that overnight her pain was not well controlled, but does not have any other new complaints. She reports baseline cough and recent episodes of diarrhea that she attributes to avoiding using the restroom because passing solid bowel movements causes her intractable rectal pain for which she has also been avoiding oral intake. Additionally she denies any headache, fever, chills, chest pain, shortness of breath, nausea, vomiting. No overnight events reported. Review of Systems Constitutional: Reports: see HPI. Objective Last 24 Hrs of Vital Signs/I&O Vital Signs Date Time Temp Pulse Resp B/P Pulse O2 O2 Flow FiO2 Ox Delivery Rate 03/21 0856 97.4 62 20 100/64 98 03/21 0047 96.6 70 20 101/56 96 Nasal 2.0L Cannula 03/21 0000 96 Nasal 2.0L Cannula 03/20 1947 94 Room Air 2.0L 03/20 1840 98.1 66 18 100/70 95 03/20 1811 99.9 68 16 128/80 03/20 1738 96.7 88 18 100/68 03/20 1514 73 18 119/62 93 Room Air 03/20 1140 97.6 88 16 116/79 96 Room Air Intake & Output 03/21 1600 03/21 0800 03/21 0000 Intake Total 720 200 Output Total 350 350 Balance 370 -150 Intake, IV 600 Intake, Oral 120 200 Number 0 Bowel Movements Output, Urine 350 350 Patient 97.522 kg Weight Physical Exam General Appearance: Alert, Oriented X3, Cooperative, Mild Distress Other Physical Findings: General -middle-aged anxious, tearful, woman in mild distress HEENT - NCAT Cardio - S1, S2 w/o murmurs/gallops/rubs Resp -rhonchi in right lung rosario, no crackles GI - soft, non-rigid, mild lower abdominal tenderness, severe suprapubic tenderness, bowel sounds present Neuro - Awake and alert, CN II - XII grossly intact Extremities - no edema, pulses intact Psych-oriented to person/place/time, tearful and apathetic, denies current suicidal ideation but expresses hopelessness Current Medications: Current Medications Sig/Blanka Start time Last Medication Dose Route Stop Time Status Admin Albuterol Sulfate 3 ML Q4H PRN 03/21 0845 AC INH Atorvastatin Calcium 40 MG 1700 03/21 1700 AC PO Baclofen 10 MG BID 03/20 2200 AC 03/20 PO 2230 Budesonide/ 2 PUF BID 03/20 2200 AC 03/20 Formoterol Fumarate INH 2231 Ceftriaxone Sodium 1,000 MG DAILY 03/20 1925 DC IV Diazepam 5 MG TID PRN 03/20 1815 AC PO Docusate Sodium 100 MG BID PRN 03/20 1815 AC PO Duloxetine HCl 40 MG DAILY 03/21 1000 AC PO Enoxaparin Sodium 40 MG DAILY 03/21 1000 CAN SC Gabapentin 100 MG TID 03/20 2200 AC 03/20 PO 2230 Guaifenesin 600 MG Q12 03/20 2200 CAN PO Hydromorphone HCl 0.6 MG ONCE ONE 03/21 0845 WI 03/21 IV 03/21 0846 0849 Hydromorphone HCl 2 MG Q4P PRN 03/21 0807 AC 03/21 PO 0824 Hydromorphone HCl 0.5 MG Q4 PRN 03/20 1830 AC 03/21 IV 0644 Hydromorphone HCl 2 MG Q4P PRN 03/20 1815 DC 03/21 PO 0235 Hydromorphone HCl 0 .STK-MED ONE 03/20 1546 DC .ROUTE Hydromorphone HCl 1 MG ONCE ONE 03/20 1545 DC 03/20 IV 03/20 1546 1549 Hydromorphone HCl 0 .STK-MED ONE 03/20 1403 DC .ROUTE Hydromorphone HCl 1 MG ONCE ONE 03/20 1400 DC 03/20 IV 03/20 1401 1420 Latanoprost 1 GTT AT BEDTIME 03/20 2200 AC 03/20 OPH 2231 Meclizine HCl 25 MG TID PRN 03/20 1814 AC PO Metoprolol Succinate 25 MG DAILY 03/21 1000 AC PO Nystatin 1 NENA BID PRN 03/20 194 AC TOP Polyethylene Glycol 17 GM DAILY 03/21 1000 AC PO Pramipexole 1 MG DAILY 03/21 1000 DC Dihydrochloride PO Pramipexole 1 MG AT BEDTIME 03/20 220 AC 03/20 Dihydrochloride PO 223 Pramipexole 1 MG DAILY 03/20 1944 DC Dihydrochloride PO Sodium Chloride 1,000 ML Q13H 03/20 181 AC 03/21 IV 0823 Tiotropium [place] 1 PUF DAILY 03/21 1000 AC INH Warfarin Sodium 3 MG COUMADIN 1700 ONE 03/20 2030 DC 03/20 PO 03/20 Last 24 Hrs of Lab/Abraham Results Last 24 Hrs of Labs/Mics: Laboratory Tests 03/21/16 0845: Anion Gap 8, Estimated GFR > 60, BUN/Creatinine Ratio 15.7, PT 22.4 H, INR 2.15 H, CBC w Diff Pending, WBC Pending, RBC Pending, Hgb Pending, Hct Pending, MCV Pending, MCH Pending, RDW Pending, Plt Count Pending, MPV Pending, PUBS MCHC Pending 03/20/16 1420: Urine Color YEL, Urine Clarity CLEAR, Urine pH 6.0, Ur Specific [place] 1.010, Urine Protein NEG, Urine Ketones NEG, Urine Nitrite NEG, Urine Bilirubin NEG, Urine Urobilinogen 0.2, Ur Leukocyte Esterase TRACE H, Ur Microscopic SEDIMENT EXAMINED, Urine RBC RARE, Urine WBC RARE, Urine Hemoglobin SMALL H, Urine Glucose NEG 03/20/16 1415: Anion Gap 11, Estimated GFR > 60, BUN/Creatinine Ratio 21.7, Glucose 105 H, Calcium 9.2, Total Bilirubin 0.5, AST 24, ALT 37, Alkaline Phosphatase 74, Total Protein 6.6, Albumin 3.8, Globulin 2.8, Albumin/Globulin Ratio 1.4, CBC w Diff NO MAN DIFF REQ, RBC 4.57, MCV 89.7, MCH 30.3, RDW 16.1 H, MPV 7.9, Gran % 64.5 , Lymphocytes % 27.3, Monocytes % 5.9, Eosinophils % 1.8, Basophils % 0.5, Absolute Granulocytes 5.2, Absolute Lymphocytes 2.2, Absolute Monocytes 0.5, Absolute Eosinophils 0.1, Absolute Basophils 0, PUBS MCHC 33.7 Assessment/Plan Assessment: Patient reports taking 4 mg Dilaudid every 4 hours at home for her pain which normally keeps her pain level at a 4-5 which is acceptable to her. Dr. Burk of urology was consulted regarding her multiple reported pelvic problems, recommendations pending. Psych consult placed for patient's passive suicidal ideation. She is continued on her home medications and intravenous antibiotics. Pelvic pain/rectocele/cystocele: History of multiple sclerosis and multiple pelvic problems such as rectocele, cystocele and "urethra issues". She has seen multiple specialists at [facility] and "out in [place]" for which she was evaluated as a potential surgical candidate, however was declined any potential procedures as she was reportedly "too high or other risk". -Dilaudid 4 mg by mouth every 4 hours -Dilaudid 1mg IV Q4H PRN PAIN 7-10 -Urology consult -Follow-up blood/urine cultures Passive suicidal ideation: Patient reports being normally in a very positive mood, however since she developed this intractable lower abdominal/pelvic pain she has been quite distressed. She reports a moment this past weekend where she contemplated taking all her medications in an attempt her life which she reports is new for her and has never had thoughts like this. -Psych consult History of Multiple sclerosis: -No current flare or new neurological symptoms -Baclofen 10 mg by mouth twice a day -Valium 5 mg by mouth 3 times a day as needed for muscle spasms Hypertension-Metoprolol XL 25 mg by mouth daily History of pulmonary embolism - stable, daily INR and dose Coumadin accordingly Restless leg syndrome-stable, continue Mirapex Hyperlipidemia-stable, continue atorvastatin Depression-chronic, continue duloxetine 40 mg by mouth daily Pain plan/bowel regimen: -Pain control as above -Colace 100 mg by mouth twice a day -MiraLAX 17 g by mouth daily Diet-heart healthy diet DVT prophylaxis-on anticoagulation CODE STATUS-full code Discharge/Follow-up/Referral: - Outpatient Pain Management Referrral - Outpatient Psychiatry evaluation - Cymbalta titrated Problem List: 1. UTI (urinary tract infection) 2. Depression Pain Ratin Pain Location: Lower abdomen Pelvis/rectum Pain Goal: Pain 7 or less Pain Plan: As noted in plan Tomorrow's Labs & Rationales: Complete blood count Basic metabolic panel INR
[2016-03-21 08:56] VITALS: BP 100/64
[2016-03-21 09:29] LABS: PT 22.4 SEC (9.4-12.5)
[2016-03-21 09:31] LABS: ABSOLUTE BASOPHIL COUNT 0 /CUMM (0.0-0.2); ABSOLUTE EOSINOPHIL COUNT 0.1 /CUMM (0.0-0.7); ABSOLUTE GRANULOCYTE CT 4.3 /CUMM (1.4-6.5); ABSOLUTE LYMPH COUNT 2.2 /CUMM (1.2-3.4); ABSOLUTE MONOCYTE COUNT 0.4 /CUMM (0.10-0.60); BASOPHIL % 0.5 % (0.0-2.0); EOSINOPHIL % 1.8 % (0-5); GRANULOCYTE % 61.4 % (42.2-75.2); HEMATOCRIT 38.9 % (37-47); MEAN CORPUSCULAR HGB 30.2 PG (27.0-31.0); MEAN CORPUSCULAR HGB CONC 33.3 G/DL (33.0-37.0); MEAN CORPUSCULAR VOLUME 90.7 FL (81.0-99.0); MEAN PLATELET VOLUME 8.1 FL (7.4-10.4); PLATELET COUNT 178 /CUMM (130-400); RBC DISTRIBUTION WIDTH 16.5 % (11.5-14.5); RED BLOOD CELL CT 4.29 /CUMM (4.20-5.40)
--- NOTE | 2016-03-21 14:28 | PN- Att Addend ---
Attending MD Review Statement Attending Statement Attending MD Statement: examined this patient, discuss w/resident/PA/BURLAPPER, agreed w/resident/PA/BURLAPPER, discussed with family, reviewed EMR data (avail), discussed w/ case mgmt Attending Assessment/Plan: 60 year old female with pmh of MS, SLE, antiphospholipid ab syndrome on Coumadin, chronic opiate use, and rectocoele/cystocoele with chronic indwelling Spears here with c/o severe pain. Patient also had admission presented with passive suicidal ideation. At the time of examination today patient complained of 7 out of 10 pain. Patient is currently on Dilaudid by mouth and IV. We will increase the by mouth Dilaudid to 4 mg when necessary and will increase the IV Dilaudid to 1 mg when necessary for breakthrough pain. For her chronic abdominal pain secondary to rectocele and cystocele patient will be seen by Dr. Hi from urology. Will follow-up with the recommendation. Suicidal ideation-patient is awaiting psych consult. We'll follow-up with the recommendations. INR is therapeutic and we will continue with Coumadin. Discussed with patient and family member at bedside the care plan.
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
[2016-03-21 15:44] VITALS: BP 102/82
--- NOTE | 2016-03-21 16:10 | NUR ---
NURSING NOTE: PATIENT REPORTED PRESSURE TO BLEADDER, SHE SAID "IT FEELS LIKE IT'S NOT DRAINING". sHE HAS A CÁRDENAS CATHETER IN PLACE. THIS RN HAD HER ROLL TO BOTH SIDES AT WHICH TIME SOME URINE DRAINED. ALSO TRIED ADVANCING CATHETER IN AND TUGGIN ON IT TO ENCOURAGE DRAINAGE. MD MILLAN AWARE.
--- NOTE | 2016-03-22 00:27 | NUR ---
ALERT AND ORIENTED X 3. VITAL SIGNS STABLE. ON 2L O2 VIA NASAL CANNULA. MEDICATION GIVEN FOR PAIN. CÁRDENAS CARE GIVEN. PATIENT RESTING COMFORTABLY AT THIS TIME. WILL CONTINUE TO MONITOR
[2016-03-22 01:47] VITALS: BP 94/57
[2016-03-22 03:56] VITALS: BP 100/58
--- NOTE | 2016-03-22 07:21 | PN- Housestaff ---
See Addendum Subjective Follow-up For: Lower abdominal pain Subjective: Patient seen and examined. She is seen lying flat in bed in mild discomfort. She appears to be in no acute distress. She states that her pain is about a "6/ 10" after the change to her pain regimen yesterday, which she reports is tolerable. She is still tearful and concerned about her options regarding her condition. She no longer expresses any suicidal ideation. She still complains of a persistent baseline cough. Additionally she denies any headache, fever, chills, chest pain, shortness of breath, nausea, vomiting, diarrhea. No overnight events reported. Review of Systems Constitutional: Reports: see HPI. Objective Last 24 Hrs of Vital Signs/I&O Vital Signs Date Time Temp Pulse Resp B/P Pulse O2 O2 Flow FiO2 Ox Delivery Rate 03/22 0836 97.7 51 20 110/60 97 Nasal 2.0L Cannula 03/22 0816 61 112/70 03/22 0800 Nasal 2.0L Cannula 03/22 0356 100/58 03/22 0147 96.6 60 20 94/57 95 Nasal Cannula 03/22 0000 Nasal 2.0L Cannula 03/21 2056 98 Nasal 2.0L Cannula 03/21 1600 94 Nasal 2.0L Cannula 03/21 1544 97.9 68 19 102/82 96 Nasal 2.0L Cannula 03/21 1159 Nasal 2.0L Cannula 03/21 1159 95 Nasal 2.0L Cannula 03/21 1022 62 100/64 Intake & Output 03/22 1600 03/22 0800 03/22 0000 Intake Total 900 600 Output Total 500 1650 Balance 400 -1050 Intake, IV 600 Intake, Oral 300 600 Number 0 Bowel Movements Output, Urine 500 1650 Physical Exam General Appearance: Alert, Oriented X3, Cooperative, No Acute Distress Other Physical Findings: General -well-developed, anxious/tearful obese middle-aged woman in no acute distress HEENT - NCAT, PERRL, EOMI, anicteric sclera Cardio - S1, S2 w/o murmurs/gallops/rubs Resp - CTA bilaterally w/o wheezing/rhochi/crackles GI - soft, obese, mild lower abdominal/suprapubic tenderness, nondistended, bowel sounds present Neuro - Awake and alert, CN II - XII grossly intact Extremities - no edema, pulses intact Current Medications: Current Medications Sig/Blanka Start time Last Medication Dose Route Stop Time Status Admin Albuterol Sulfate 3 ML Q4H PRN 03/21 0845 AC INH Atorvastatin Calcium 40 MG 1700 03/21 1700 AC 03/21 PO 1616 Baclofen 10 MG BID 03/20 2200 AC 03/22 PO 0817 Budesonide/ 2 PUF BID 03/20 2200 AC 03/22 Formoterol Fumarate INH 0818 Diazepam 5 MG TID PRN 03/20 1815 AC 03/21 PO 2357 Docusate Sodium 100 MG BID 03/21 2200 AC 03/22 PO 0817 Docusate Sodium 100 MG BID PRN 03/20 1815 DC PO 03/21 2159 Duloxetine HCl 60 MG DAILY 03/22 1000 AC 03/22 PO 0817 Duloxetine HCl 40 MG DAILY 03/21 1000 DC 03/21 PO 1019 Gabapentin 100 MG TID 03/20 2200 AC 03/22 PO 0816 Hydromorphone HCl 4 MG Q4P PRN 03/21 1115 AC 03/22 PO 0819 Hydromorphone HCl 1 MG Q4 PRN 03/21 1101 AC 03/22 IV 0635 Hydromorphone HCl 2 MG Q4P PRN 03/21 0807 DC 03/21 PO 0824 Hydromorphone HCl 0.5 MG Q4 PRN 03/20 1830 DC 03/21 IV 0644 Latanoprost 1 GTT AT BEDTIME 03/20 2200 AC 03/21 OPH 2317 Meclizine HCl 25 MG TID PRN 03/20 1815 AC PO Melatonin 3 MG AT BEDTIME 03/21 2200 AC 03/21 PO 2313 Metoprolol Succinate 25 MG DAILY 03/21 1000 AC 03/22 PO 0816 Nystatin 1 NENA BID PRN 03/20 1945 AC TOP Polyethylene Glycol 17 GM DAILY 03/21 1000 AC 03/22 PO 0817 Pramipexole 1 MG AT BEDTIME 03/20 220 AC 03/21 Dihydrochloride PO 2323 Sodium Chloride 1,000 ML Q13H 03/20 1815 AC 03/22 IV 0102 Tiotropium [place] 1 PUF DAILY 03/21 1000 AC 03/22 INH 0817 Last 24 Hrs of Lab/Abraham Results Last 24 Hrs of Labs/Mics: Laboratory Tests 03/22/16 0620: Anion Gap 8, Estimated GFR > 60, BUN/Creatinine Ratio 17.5, PT 29.9 H, INR 2.88 H, CBC w Diff NO MAN DIFF REQ, RBC 3.88 L, MCV 90.6, MCH 29.9, RDW 15.8 H, MPV 8.2, Gran % 49.6, Lymphocytes % 39.4, Monocytes % 8.1, Eosinophils % 2.4, Basophils % 0.5, Absolute Granulocytes 2.5, Absolute Lymphocytes 2.0, Absolute Monocytes 0.4, Absolute Eosinophils 0.1, Absolute Basophils 0, PUBS MCHC 33.0 Assessment/Plan Assessment: Patient's pain medication regimen was advanced to Dilaudid 4 mg every 4 hours and Dilaudid 1mg IV for breathrough pain. She reports minimal improvement of her pain on this regimen but admits the pain level is tolerable. Dr. Alvarez evaluated the patient, Dr. Burk is unavailable, and determined that patient would likely benefit from an outpatient pain management referral in addition to evaluation by Dr. Burk in her office as an outpatient as well. [facility] prescription of pain medication with instruction to follow-up with her primary care physician, Dr. Burk, outpatient psychiatry, and a pain management clinic. Pelvic pain/rectocele/cystocele: History of multiple sclerosis and multiple pelvic problems such as rectocele, cystocele and "urethra issues". She has seen multiple specialists at [facility] and "out in [place]" for which she was evaluated as a potential surgical candidate, however was declined any potential procedures as she was reportedly "too high or other risk". -Dilaudid 4 mg by mouth every 4 hours -Dilaudid 1mg IV Q4H PRN PAIN 7-10 -Urology consult -Follow-up blood/urine cultures Passive suicidal ideation: Patient reports being normally in a very positive mood, however since she developed this intractable lower abdominal/pelvic pain she has been quite distressed. She reports a moment this past weekend where she contemplated taking all her medications in an attempt her life which she reports is new for her and has never had thoughts like this. -Psych consult History of Multiple sclerosis: -No current flare or new neurological symptoms -Baclofen 10 mg by mouth twice a day -Valium 5 mg by mouth 3 times a day as needed for muscle spasms Hypertension-Metoprolol XL 25 mg by mouth daily History of pulmonary embolism - stable, daily INR and dose Coumadin accordingly Restless leg syndrome-stable, continue Mirapex Hyperlipidemia-stable, continue atorvastatin Depression-chronic, continue duloxetine 60 mg by mouth daily Pain plan/bowel regimen: -Pain control as above -Colace 100 mg by mouth twice a day -MiraLAX 17 g by mouth daily Diet-heart healthy diet DVT prophylaxis-on anticoagulation CODE STATUS-full code Discharge/Follow-up/Referral: - Outpatient Pain Management Referrral - Outpatient Psychiatry evaluation -Outpatient urology evaluation by Dr. Burk - Cymbalta increased to 60 mg Problem List: 1. Intractable pain Pain Ratin Pain Location: Lower abdomen Pelvis Rectum Pain Goal: Pain 7 or less Pain Plan: As noted in plan Tomorrow's Labs & Rationales: None
[2016-03-22 08:31] LABS: ABSOLUTE BASOPHIL COUNT 0 /CUMM (0.0-0.2); ABSOLUTE EOSINOPHIL COUNT 0.1 /CUMM (0.0-0.7); ABSOLUTE GRANULOCYTE CT 2.5 /CUMM (1.4-6.5); ABSOLUTE MONOCYTE COUNT 0.4 /CUMM (0.10-0.60); BASOPHIL % 0.5 % (0.0-2.0); EOSINOPHIL % 2.4 % (0-5); GRANULOCYTE % 49.6 % (42.2-75.2); HEMATOCRIT 35.1 % (37-47); MEAN CORPUSCULAR HGB 29.9 PG (27.0-31.0); MEAN CORPUSCULAR VOLUME 90.6 FL (81.0-99.0); MEAN PLATELET VOLUME 8.2 FL (7.4-10.4); PLATELET COUNT 161 /CUMM (130-400); RBC DISTRIBUTION WIDTH 15.8 % (11.5-14.5); RED BLOOD CELL CT 3.88 /CUMM (4.20-5.40); WHITE BLOOD CELL COUNT 5.1 /CUMM (4.8-10.8)
[2016-03-22 08:32] LABS: PT 29.9 SEC (9.4-12.5)
[2016-03-22 08:36] VITALS: BP 110/60
--- NOTE | 2016-03-22 13:18 | Cons- Urology ---
General Information and HPI Consulting Request Date of Consult: 03/22/16 Requested By: JUAN CARLOS MATHIS MD Reason for Consult: Pelvic pain, urinary retention, cystocele and rectocele Source of Information: patient Exam Limitations: no limitations History of Present Illness: This patient was seen by me on 03/06/16 during her last admission which was for exacerbation of MS during which she developed urinary retention. Prior to that he had been voiding spontaneously with incontinence. She has a long hx of cystocele and rectocele and has had chronic pelvic pain. She has seen several urologists and was told she is too high risk for surgery, including [address] [facility]. She has had an indwelling pathak since her last admission because she is unable to perform self cath and there is no one at home who can help her. She was admitted with severe lower abdominal pain. Her pathak remains in place and is draining clear urine. Of note, CT of abd and pelvis on previous admission showed no obvious cause for pain Allergies/Medications Allergies: Coded Allergies: metoclopramide (From REGLAN) (Severe, 03/01/16) Sulfa (Sulfonamide Antibiotics) (SWELLING 03/01/16) Uncoded Allergies: FRESH FROZEN PLASMA (Mild, HIVES 03/01/16) Home Med List: Albuterol Sulfate 2.5 MG/3 ML (0.083 %) VIAL.NEB 1 Vial INH/ARLETTE Q6-PRN PRN WHEEZING (Reported) Atorvastatin Calcium 40 MG TABLET 1 TAB PO DAILY CHOLESTEROL (Reported) Baclofen 10 MG TABLET 1 TAB PO BID MUSCLE (Reported) Diazepam 5 MG TABLET 1 TAB PO TIDPRN PRN ANXIETY (Reported) Docusate Sodium (Colace) 100 MG CAPSULE 1 CAP PO BID PRN constipation Duloxetine HCl 40 MG CAPSULE.DR 1 CAP PO DAILY MENTAL HEALTH (Reported) Ergocalciferol (Vitamin D2) (Vitamin D2) 50,000 UNIT CAPSULE 1 CAP PO QMON SUPPLEMENT (Reported) Fluticasone/Salmeterol (Advair 250-50 Diskus) 250 MCG-50 MCG/DOSE BLST.W.DEV 1 PUF INH BID BREATHING PROBLEMS (Reported) Gabapentin 100 MG CAPSULE 1 CAP PO TID PAIN (Reported) Hydromorphone HCl 4 MG TABLET 1 TAB PO Q4 HRS NEEDED PRN PAIN (Reported) Meclizine HCl 25 MG TABLET 1 TAB PO Q8P PRN DIZZINESS (Reported) Metoprolol Succinate 25 MG TAB 1 TAB PO DAILY heart health Nitrofurantoin Monohyd/M-Cryst (Macrobid 100 MG Capsule) 100 MG CAPSULE 1 CAP PO BID UTI with food Ondansetron (Zofran Odt) 4 MG TAB.RAPDIS 1 TAB PO Q6-PRN PRN NAUSEA/VOMITING (Reported) Polyethylene Glycol 3350 (Miralax) 17 GRAM POWD.PACK 1 PAC PO DAILY constipation dissolve in water Pramipexole Di-HCl (Pramipexole Dihydrochloride) 1 MG TABLET 1 TAB PO DAILY RESTLESS LEGS (Reported) Tiotropium [place] (Spiriva) 18 MCG CAP.W.DEV 1 CAP INH DAILY BREATHING PROBLEMS (Reported) Travoprost (Travatan Z) 0.004 % DROPS 1 GTT OPH QPM EYE (Reported) Warfarin Sodium (Coumadin) 3 MG TABLET 1 TAB PO 1700 BLOOD THINNER (Reported) Current Medications: Current Medications Sig/Blanka Start time Last Medication Dose Route Stop Time Status Admin Albuterol Sulfate 3 ML Q4H PRN 03/21 0845 AC INH Atorvastatin Calcium 40 MG 1700 03/21 1700 AC 03/21 PO 1616 Baclofen 10 MG BID 03/20 2200 AC 03/22 PO 0817 Budesonide/ 2 PUF BID 03/20 220 AC 03/22 Formoterol Fumarate INH 0818 Diazepam 5 MG TID PRN 03/20 1815 AC 03/21 PO 2357 Docusate Sodium 100 MG BID 03/21 2200 AC 03/22 PO 0817 Docusate Sodium 100 MG BID PRN 03/20 1815 DC PO 03/21 2159 Duloxetine HCl 60 MG DAILY 03/22 1000 AC 03/22 PO 0817 Duloxetine HCl 40 MG DAILY 03/21 1000 DC 03/21 PO 1019 Gabapentin 100 MG TID 03/20 2200 AC 03/22 PO 0816 Hydromorphone HCl 4 MG Q4P PRN 03/21 1115 AC 03/22 PO 0819 Hydromorphone HCl 1 MG Q4 PRN 03/21 1101 AC 03/22 IV 1244 Latanoprost 1 GTT AT BEDTIME 03/20 2200 AC 03/21 OPH 2317 Meclizine HCl 25 MG TID PRN 03/20 1815 AC PO Melatonin 3 MG AT BEDTIME 03/21 2200 AC 03/21 PO 2313 Metoprolol Succinate 25 MG DAILY 03/21 1000 AC 03/22 PO 0816 Nystatin 1 NENA BID PRN 03/20 1945 AC TOP Polyethylene Glycol 17 GM DAILY 03/21 1000 AC 03/22 PO 0817 Pramipexole 1 MG AT BEDTIME 03/20 2200 AC 03/21 Dihydrochloride PO 2323 Sodium Chloride 1,000 ML Q13H 03/20 1815 AC 03/22 IV 0102 Tiotropium [place] 1 PUF DAILY 03/21 1000 AC 03/22 INH 0817 Past History Medical History Blood Transfusion Hx: No Neurological: multiple sclerosis EENT: NONE Cardiovascular: CAD, hypertension, DVT Respiratory: asthma, COPD Gastrointestinal: NONE Hepatic: NONE Renal: NONE Musculoskeletal: NONE Psychiatric: NONE Endocrine: diabetes, LUPUS Blood Disorders: NONE Cancer(s): NONE IRRIGATION MANAGER/Reproductive: NONE Surgical History Pertinent Surgical History: non-contributory Family History Relations & Conditions If Any: SISTER Relation not specified for: FH: multiple sclerosis Psychosocial History Who Do You Live With? spouse, child Services at Home: Nursing Smoking Status: Current Everyday Smoker ETOH Use: denies use Illicit Drug Use: denies illicit drug use Functional Ability ADLs Needs Assist: dressing, eating, toileting, bathing. Ambulation: walker IADLs Independent: telephone. Needs Assist: shopping, housework, finances, food prep, transportation, medication admin. Exam & Diagnostic Data Vital Signs and I&O Vital Signs Date Time Temp Pulse Resp B/P Pulse O2 O2 Flow FiO2 Ox Delivery Rate 03/22 0836 97.7 51 20 110/60 97 Nasal 2.0L Cannula 03/22 0816 61 112/70 03/22 0800 Nasal 2.0L Cannula 03/22 0356 100/58 03/22 0147 96.6 60 20 94/57 95 Nasal Cannula 03/22 0000 Nasal 2.0L Cannula 03/21 2056 98 Nasal 2.0L Cannula 03/21 1600 94 Nasal 2.0L Cannula 03/21 1544 97.9 68 19 102/82 96 Nasal 2.0L Cannula Intake & Output 03/22 1600 03/22 0800 03/22 0000 03/21 1600 03/21 0800 03/21 0000 Intake Total 900 600 875 720 200 Output Total 500 1650 875 350 350 Balance 400 -1050 0 370 -150 Intake, IV 600 375 600 Intake, Oral 300 600 500 120 200 Number 0 0 Bowel Movements Output, Urine 500 1650 875 350 350 Patient 215 lb Weight No acute distress but verbally complains of lower abd, vaginal and rectal pain Back: No CVA tenderness Abd: soft. some lower abd tenderness Gentialia: pathak in place draining clear urine Laboratory Tests 03/22 0620 Chemistry Sodium (137 - 145 mmol/L) 143 Potassium (3.5 - 5.1 mmol/L) 4.3 Chloride (98 - 107 mmol/L) 107 Carbon Dioxide (22 - 30 mmol/L) 28 Anion Gap (5 - 16) 8 BUN (7 - 17 mg/dL) 14 Creatinine (0.5 - 1.0 mg/dL) 0.8 Estimated GFR (>60 ml/min) > 60 BUN/Creatinine Ratio (7 - 25 %) 17.5 Coagulation PT (9.4 - 12.5 SEC) 29.9 H INR (0.90 - 1.19) 2.88 H Hematology CBC w Diff NO MAN DIFF REQ WBC (4.8 - 10.8 /CUMM) 5.1 RBC (4.20 - 5.40 /CUMM) 3.88 L Hgb (12.0 - 16.0 G/DL) 11.6 L Hct (37 - 47 %) 35.1 L MCV (81.0 - 99.0 FL) 90.6 MCH (27.0 - 31.0 PG) 29.9 RDW (11.5 - 14.5 %) 15.8 H Plt Count (130 - 400 /CUMM) 161 MPV (7.4 - 10.4 FL) 8.2 Gran % (42.2 - 75.2 %) 49.6 Lymphocytes % (20.5 - 51.1 %) 39.4 Monocytes % (1.7 - 9.3 %) 8.1 Eosinophils % (0 - 5 %) 2.4 Basophils % (0.0 - 2.0 %) 0.5 Absolute Granulocytes (1.4 - 6.5 /CUMM) 2.5 Absolute Lymphocytes (1.2 - 3.4 /CUMM) 2.0 Absolute Monocytes (0.10 - 0.60 /CUMM) 0.4 Absolute Eosinophils (0.0 - 0.7 /CUMM) 0.1 Absolute Basophils (0.0 - 0.2 /CUMM) 0 PUBS MCHC (33.0 - 37.0 G/DL) 33.0 Assessment/Plan Assessment/Plan Imp: chronic lower abdominal, pelvic, vaginal and rectal pain MS Urinary retention likely related to MS. Cystocele may contribute Multiple medical problems Plan: Agree with psychiatry recommendations for pain management consult Patient told to obtain records from her previous urologic w/u Outpatient appointment with Dr Burk for further evaluation. She is not available at this time but I will see if she can see patient on this admission, ? Sunday Consult Acknowledgment - Thank you for your consult request.
[2016-03-22] MEDS ORDERED: CYMBALTA30 M1 PO (13:45)
[2016-03-22] MEDS ORDERED: HYDROMORPHONE HC2 M1 PO (13:45)
--- NOTE | 2016-03-22 14:00 | Patient Discharge Instructions ---
Discharge Instructions General Discharge Information Special Instructions: Follow up with Dr. Burk for further evaluation and possible surgical intervention of your rectocele/cystocele. Schedule an appointment with a pain management clinic for further control of your pain. Obtained records from your previous hospitalizations for this condition prior to your visit with Dr. Burk. Acute Coronary Syndrome Inclusion Criteria At DC or during hospital stay patient has or had the following: ACS DIAGNOSIS No Discharge Core Measures Meds if any: Prescribed or Continued at Discharge Meds if any: NOT Prescribed or Continued at Discharge Congestive Heart Failure Inclusion Criteria At DC or during hospital stay patient has or had the following: CHF DIAGNOSIS No Discharge Core Measures Meds if any: Prescribed or Continued at Discharge Meds if any: NOT Prescribed or Continued at Discharge Cerebrovascular accident Inclusion Criteria At DC or during hospital stay patient has or had the following: CVA/TIA Diagnosis No Discharge Core Measures Meds if any: Prescribed or Continued at Discharge Meds if any: NOT Prescribed or Continued at Discharge Venous thromboembolism Inclusion Criteria VTE Diagnosis No VTE Type NONE VTE Confirmed by (Test) NONE Discharge Core Measures - Per Current guidelines, there needs to be overlap - treatment for the first 5 days of Warfarin therapy. - If discharged on Warfarin prior to 5 days of - overlap therapy, the patient will need to be - assessed for post discharge needs including - *Post discharge parental anticoagulation - *Warfarin and/or parental anticoagulation education - *Follow up date to check INR post discharge At least 5 days overlap therapy as Inpatient No Meds if any: Prescribed or Continued at Discharge Note: Overlap Therapy is Warfarin and Anticoagulant Meds if any: NOT Prescribed or Continued at Discharge
[2016-03-22] MEDS ORDERED: CYMBALTA60 M1 PO (14:14)
[2016-03-22] MEDS ORDERED: HYDROMORPHONE HC4 M1 PO (14:19)
[2016-03-22 16:08] VITALS: BP 112/68
--- NOTE | 2016-03-23 15:57 | Discharge Summary ---
Visit Information Visit Dates Admission Date: 03/20/16 Discharge Date: 03/22/16 Hospital Course Course Attending Physician: JUAN CARLOS MATHIS MD Primary Care Physician: UNKNOWN Consulting Request: 1 Consulting Specialty: Urology Consulting Request: 2 Consulting Specialty: Psychiatry Hospital Course: 60-year-old woman with past medical history significant for multiple sclerosis, lupus, Bechet's, and antiphospholipid antibody syndrome admitted for evaluation of severe vaginal/rectal pain and low urine output. Patient was recently admitted to [facility] on 03/01/16 for evaluation of urinary retention and MS exacerbation for which was treated with intravenous steroids and was discharged to rehabilitation center in [place] on 03/03/16 with a Spears catheter and instruction to follow-up with her urologist and neurologist after discharge for further evaluation. Patient self discharged from rehabilitation center 7 days prior to admission stating "inappropriate care". On admission she is complaining of 9-10/10 pain that is now reportedly worse than prior evaluation. She has passive thoughts of suicidal ideation on admission, but denies any active thoughts of hurting herself or plan to act on them. She was admitted to the general medicine floor for further evaluation with urology/ psychiatry consults placed. PMHx: Lupus, MS, Bechet's dx, antiphospholid syndrome, PE on coumadin Pelvic pain/rectocele/cystocele: History of multiple sclerosis and multiple pelvic problems such as rectocele, cystocele and "urethra issues". She has seen multiple specialists at [facility], [facility], and "out in [place]" for which she was evaluated as a potential surgical candidate, however was declined any potential procedures as she was reportedly "too high or other risk". Patient was treated with Dilaudid 4 mg by mouth every 4 hours with 1 mg IV for severe pain during admission that adequately reduced her pain to "about 5-6/10" which was reportedly tolerable for the patient. Urology consult and recommended no immediate intervention and stated patient should follow-up with Dr. Ileana Burk as an outpatient for further evaluation. Patient was discharged to home on a short dose of oral pain medications with instruction to follow-up with the painter plate or her primary care provider for further narcotic pain medication. Passive suicidal ideation: Patient reports being normally in a very positive mood, however since she developed this intractable lower abdominal/pelvic pain she has been quite distressed. She reports a moment this past weekend where she contemplated taking all her medications in an attempt her life which she reports is new for her and has never had thoughts like this. Psychiatry consulted and recommended outpatient psychiatry evaluation and titration of her Cymbalta up to 60 mg with addition of a agent to help with sleep. She was determined not to be a harm to herself or others. She is to follow-up with [facility] outpatient psychiatric services after discharge. Allergies: Coded Allergies: metoclopramide (From REGLAN) (Severe, 03/01/16) Sulfa (Sulfonamide Antibiotics) (SWELLING 03/01/16) Uncoded Allergies: FRESH FROZEN PLASMA (Mild, HIVES 03/01/16) Significant Procedures: SERVICE DATE: 03/20/16- EXAM TYPE: RAD - XRY-PORTABLE CHEST XRAY IMPRESSION: Pulmonary hypoinflation. No focal airspace consolidation to suggest infection. Disposition Summary Disposition Principal Diagnosis: Intractable pelvic pain Additional Diagnosis: Rectocele/cystocele Discharge Disposition: home health services Discharge Instructions General Discharge Information Code Status: Full Code Patient's Diet: Heart healthy diet Patient's Activity: Return to full activity as determined by physical therapy assessment Follow-Up Instructions/Appts: Follow up with Dr. Burk for further evaluation and possible surgical intervention of your rectocele/cystocele. Schedule an appointment with a pain management clinic for further control of your pain. Obtained records from your previous hospitalizations for this condition prior to your visit with Dr. Burk. Medications at Discharge Discharge Medications: Stop taking the following medications: Duloxetine HCl (Duloxetine HCl) 40 MG CAPSULE. ORAL DAILY Qty = 90 Continue taking these medications: Warfarin Sodium (Coumadin) 3 MG TABLET 1 Tablet ORAL 5 PM Comments: Last Taken: 03/05/16 Time: 1400PM HOLD COUMADIN 03/06/16 INR 3.0 RECHECK INR 03/07/16 Hydromorphone HCl (Hydromorphone HCl) 4 MG TABLET 1 Tablet ORAL EVERY 4 HOURS NEEDED as needed for PAIN Qty = 42 Comments: Last Taken: 03/22/16 Time: 1200PM Pramipexole Di-HCl (Pramipexole Dihydrochloride) 1 MG TABLET 1 Tablet ORAL DAILY Qty = 30 Fluticasone/Salmeterol (Advair 250-50 Diskus) 250 MCG-50 MCG/DOSE GRETTA 1 Puff Inhale through mouth TWICE DAILY Comments: SYMBICORT GIVEN 03/22/16 @1000AM Tiotropium [place] (Spiriva) 18 MCG CAP.W.DEV 1 Capsule Inhale through mouth DAILY Comments: Last Taken: 03/22/16 Time: 1000AM Diazepam (Diazepam) 5 MG TABLET 1 Tablet ORAL THREE TIMES A DAY NEEDED as needed for ANXIETY Qty = 30 Comments: Last Taken: 03/06/16 Time: 1200PM Meclizine HCl (Meclizine HCl) 25 MG TABLET 1 Tablet ORAL EVERY 8 HOURS NEEDED as needed for DIZZINESS Qty = 90 Comments: NOT GIVEN Atorvastatin Calcium (Atorvastatin Calcium) 40 MG TABLET 1 Tablet ORAL DAILY Qty = 30 Comments: Last Taken: 03/21/16 Time: 4:00 PM Ondansetron (Zofran Odt) 4 MG TAB.RAPDIS 1 Tablet ORAL EVERY 6 HOURS NEEDED as needed for NAUSEA/VOMITING Qty = 15 Comments: NOT GIVEN Albuterol Sulfate (Albuterol Sulfate) 2.5 MG/3 ML (0.083 %) VIAL.NEB 1 Vial Inhale Solution EVERY 6 HOURS NEEDED as needed for WHEEZING Comments: Last Taken:03/05/16 Time: 1800PM Baclofen (Baclofen) 10 MG TABLET 1 Tablet ORAL TWICE DAILY Qty = 90 Comments: Last Taken: 03/22/16 Time: 10:00 AM Ergocalciferol (Vitamin D2) (Vitamin D2) 50,000 UNIT CAPSULE 1 Capsule ORAL EVERY SUNDAY Qty = 4 Comments: NOT GIVEN Gabapentin (Gabapentin) 100 MG CAPSULE 1 Capsule ORAL THREE TIMES DAILY Comments: Last Taken: 03/06/16 Time: 4:30 PM Travoprost (Travatan Z) 0.004 % DROPS 1 Drop In the eye Every night Comments: Last Taken: 03/05/16 Time: 2200PM Metoprolol Succinate (Metoprolol Succinate) 25 MG TAB 1 Tablet ORAL DAILY Qty = 30 Comments: Last Taken: 03/22/16 Time: 10:00 AM Polyethylene Glycol 3350 (Miralax) 17 GRAM POWD.PACK 1 Packet ORAL DAILY Qty = 30 Instructions: dissolve in water Comments: NOT GIVEN Docusate Sodium (Colace) 100 MG CAPSULE 1 Capsule ORAL TWICE DAILY as needed for constipation Qty = 30 Comments: NOT GIVEN Nitrofurantoin Monohyd/M-Cryst (Macrobid 100 MG Capsule) 100 MG CAPSULE 1 Capsule ORAL TWICE DAILY Qty = 14 Instructions: with food Start taking the following new medications: Duloxetine HCl (Cymbalta) 60 MG CAPSULE.DR 1 Tablet ORAL DAILY Qty = 30 No Refills Comments: Last Taken:03/22/16 Time:10:00 AM Hydromorphone HCl (Hydromorphone HCl) 4 MG TABLET 1 Tablet ORAL Every 4 hours as needed for PAIN Qty = 42 No Refills Comments: Last Taken:03/22/16 Time:12:00 PM Copies To: BRAEDEN MIDDLETON,ILEANA; JESSICA STEIN APRN; FANI MIDDLETON,ANGELLA Love Attending MD Review Statement Documenting Attending: MARCELINO MIDDLETON,QUINCY De La Garza Other Findings: Pt seen and examined. Plan dc today. Agree with the hospital course above and discussed the care plan with the resident and patient.
== END 2016-03-22 16:02 | disposition home health service (06) ==
LOC: ENRESERVTM → ENRESERVDT → ERH 11:35 → 2NB 16:06 → ENPENDDIS 16:06 → 2NB 16:06 → ERHI 16:06 → 2NB 18:28
PROVIDERS: Internal Medicine; Internal Medicine Interventional Cardiology; Physician Assistant Medical; ADMIT Internal Medicine
DX: N81.6 Rectocele (principal); N81.10 Cystocele, unspecified; G35 Multiple sclerosis; D68.61 Antiphospholipid syndrome; Z86.711 Personal history of pulmonary embolism; Z79.01 Long term (current) use of anticoagulants; R33.9 Retention of urine, unspecified; I10 Essential (primary) hypertension; G25.81 Restless legs syndrome; F32.9 Major depressive disorder, single episode, unspecified
CPT/HCPCS: 1328; 1425; 1530; 1748; 81001; 82436; 93005; 93010; 96374; 96376; 97116-GP; 97161-GP; 97530-GP; 99233; J0696; J1170; J1650; J3490

== ENCOUNTER 2016-04-10 11:10 | Emergency (ER) | payer OTHER ==
[~2016-04-10] VITALS: Ht 162.6 cm; Wt 98.4 kg
[~2016-04-10 11:10] MED LIST changes: +CYMBALTA30 M1 PO; +CYMBALTA60 M1 PO; +HYDROMORPHONE HC2 M1 PO
[2016-04-10 12:09] LABS: ABSOLUTE BASOPHIL COUNT 0.1 /CUMM (0.0-0.2); ABSOLUTE EOSINOPHIL COUNT 0.1 /CUMM (0.0-0.7); ABSOLUTE GRANULOCYTE CT 5.6 /CUMM (1.4-6.5); ABSOLUTE LYMPH COUNT 2.5 /CUMM (1.2-3.4); ABSOLUTE MONOCYTE COUNT 0.6 /CUMM (0.10-0.60); BASOPHIL % 0.7 % (0.0-2.0); EOSINOPHIL % 1.2 % (0-5); GRANULOCYTE % 63.1 % (42.2-75.2); HEMATOCRIT 45.2 % (37-47); MEAN CORPUSCULAR HGB 29.8 PG (27.0-31.0); MEAN CORPUSCULAR HGB CONC 33.3 G/DL (33.0-37.0); MEAN CORPUSCULAR VOLUME 89.6 FL (81.0-99.0); MEAN PLATELET VOLUME 7.9 FL (7.4-10.4); PLATELET COUNT 171 /CUMM (130-400); RBC DISTRIBUTION WIDTH 15.4 % (11.5-14.5); RED BLOOD CELL CT 5.04 /CUMM (4.20-5.40); WHITE BLOOD CELL COUNT 8.9 /CUMM (4.8-10.8)
[2016-04-10 12:18] LABS: PT 39.6 SEC (9.4-12.5); PTT 55 SEC (25-37)
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
--- NOTE | 2016-04-10 14:12 | RADIOLOGY REPORT ---
EXAMINATION: XR CHEST CLINICAL INFORMATION: Evaluate for pneumonia. COMPARISON: Chest x-ray dated 12/18/2016 TECHNIQUE: 2 views of the chest were obtained. FINDINGS: Stable Cardia mediastinal silhouette. Lungs are clear. Minor peribronchial wall cuffing noted again consistent with reactive small airway disease or bronchitis. No acute airspace disease at bony thorax is intact. IMPRESSION: No evidence of pneumonia. Reactive small airway disease or bronchitis.
[2016-04-10] MEDS ORDERED: COMBIVENT RESPIM4 GM (14:47)
[2016-04-10] MEDS ORDERED: METOPROLOL SUCC50 M2 PO (14:48)
[2016-04-10] MEDS ORDERED: [UNRECOGNIZED DRUG - CODE] (14:49)
[2016-04-10] MEDS ORDERED: DULOXETINE HCL40 MG PO (14:50)
[2016-04-10] MEDS ORDERED: PERCOCET 7.5-31 EACH PO (14:51)
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
--- NOTE | 2016-04-11 14:45 | CT SCAN REPORT ---
EXAMINATION: CT HEAD WITHOUT CONTRAST CLINICAL INFORMATION: Headache, altered mental status. COMPARISON: 11/18/2015. TECHNIQUE: Contiguous axial imaging was performed from the skull base to vertex without intravenous administration of contrast. DLP: 530 mGy-cm FINDINGS: There is no evidence of acute intracranial hemorrhage or territorial infarction. No abnormal mass effect or midline shift is seen. Clay to white matter differentiation is well preserved. No extra-axial fluid collections are identified. The ventricular sulcal pattern is normal appearing for the patient's age. There is mild decrease in periventricular deep white matter attenuation most consistent with mild small vessel ischemic changes without significant change compared with the previous exam. The osseous structures and soft tissues are normal. The mastoid air cells and visualized portions of the paranasal sinuses are well aerated. IMPRESSION: No acute intracranial pathology. Mild small vessel ischemic changes.
[2016-04-11 16:45] VITALS: BP 130/74
[2016-04-11] MEDS ORDERED: AMOXICILLIN500 M3 PO (16:52)
== END 2016-04-11 16:56 | disposition left against medical advice (07) ==
LOC: ERH 11:10
PROVIDERS: Emergency Medicine
DX: G89.29 Other chronic pain (principal); J40 Bronchitis, not specified as acute or chronic; I10 Essential (primary) hypertension; Z72.0 Tobacco use
CPT/HCPCS: 80307; 81001; 97110-GP; 97162-GP; 97530-GP; G0463; J1885; J3360